=== PATIENT | male | born 1945 | race Caucasian/White ===

== ENCOUNTER 2021-03-25 07:03 | Day surgery (SDC) | payer MEDICARE, SELFPAY ==
[2021-03-19 12:57] VITALS: BMI 28.9
--- NOTE | 2021-03-22 09:16 | HO.ANESPROP2 ---
Documented by User: Ana Peraza 03/22/21 11:48 HPI - Anesthesia Eval Consult details Narrative: 76yo M for Right Cataract Extraction IOL Insertion PCP cleared: >4mets No prev cataract on record PMFSH Past Medical History Medical History Aortic valvular disease Arthritis COVID-19 vaccine administered Diabetes HTN (hypertension) Surgical History Surgical History H/O colonoscopy Hx of aortic valve replacement Hx of left cataract extraction Hx of lumbar discectomy Hx of shoulder surgery Social History Social History Smoking Status: Never smoker Use of substances other than those prescribed or required for medical reasons: No Have you been hit, kicked, punched, or otherwise hurt by someone within the past year? If so, by whom?: No Are you DNR?: No Advance Directives Information Provided: No Recently lost weight without trying: No Eating poorly because of decreased appetite: No Nutrition Risks: No Nutritional Risk Meds Allergies Allergy/AdvReac Type Severity Reaction Status Date / Time No Known Allergies Allergy Verified 03/25/21 07:45 [No Known Allergies*] Home Medications Medication Instructions Recorded Confirmed Last Taken Type amlodipine 10 mg PO DAILY 03/19/21 03/19/21 03/25/21 06:00 History apixaban [Eliquis] 5 mg PO BID 03/19/21 03/19/21 Unknown History doxazosin 4 mg PO BEDTIME 03/19/21 03/19/21 Unknown History hydralazine 100 mg PO BID 03/19/21 03/19/21 03/25/21 06:00 History insulin glargine [Lantus Solostar 30 unit SUBCUT QPM 03/19/21 03/19/21 Unknown History U-100 Insulin] metformin 1,000 mg PO BID 03/19/21 03/19/21 Unknown History metoprolol tartrate 100 mg PO TID 03/19/21 03/19/21 03/25/21 06:00 History spironolactone 25 mg PO DAILY 03/19/21 03/19/21 Unknown History Exam Exam Date and Time: March 22, 2021 0916 Height,Weight and Vital Signs: Height 5 ft 5 in Weight 78.925 kg Assessment and Plan Assessment Anesthesia Assessment: Chart Reviewed Documented by User: Keila Smiley 03/25/21 09:48 PMFSH Past Medical History Medical History Aortic valvular disease Arthritis COVID-19 vaccine administered Diabetes HTN (hypertension) Surgical History Surgical History H/O colonoscopy Hx of aortic valve replacement Hx of left cataract extraction Hx of lumbar discectomy Hx of shoulder surgery Social History Social History Smoking Status: Never smoker Use of substances other than those prescribed or required for medical reasons: No Have you been hit, kicked, punched, or otherwise hurt by someone within the past year? If so, by whom?: No Are you DNR?: No Advance Directives Information Provided: No Recently lost weight without trying: No Eating poorly because of decreased appetite: No Nutrition Risks: No Nutritional Risk Meds Allergies Allergy/AdvReac Type Severity Reaction Status Date / Time No Known Allergies Allergy Verified 03/25/21 07:45 [No Known Allergies*] Home Medications Medication Instructions Recorded Confirmed Last Taken Type amlodipine 10 mg PO DAILY 03/19/21 03/19/21 03/25/21 06:00 History apixaban [Eliquis] 5 mg PO BID 03/19/21 03/19/21 Unknown History doxazosin 4 mg PO BEDTIME 03/19/21 03/19/21 Unknown History hydralazine 100 mg PO BID 03/19/21 03/19/21 03/25/21 06:00 History insulin glargine [Lantus Solostar 30 unit SUBCUT QPM 03/19/21 03/19/21 Unknown History U-100 Insulin] metformin 1,000 mg PO BID 03/19/21 03/19/21 Unknown History metoprolol tartrate 100 mg PO TID 03/19/21 03/19/21 03/25/21 06:00 History spironolactone 25 mg PO DAILY 03/19/21 03/19/21 Unknown History Exam Airway Mallampati Class: III Denture: Upper and Lower
--- NOTE | 2021-03-22 12:32 | MHC.SHP ---
Pre-Procedural Eval Section A The patient is an INPATIENT: No The History & Physical has been completed within 30 days and I have reviewed it.: Yes Section B Chief Complaint: Cataract Right Eye Allergies: Allergies Allergy/AdvReac Type Severity Reaction Status Date / Time No Known Allergies Allergy Verified 03/19/21 12:59 [No Known Allergies*] Plan Diagnosis/Plan: Unchanged I have reviewed the history and physical and performed a pertinent physical examination on my patient. No changes have occurred unless specified.
[2021-03-25 07:47] VITALS: BP 140/69; PULSE 77; RESP 16; TEMP 36.4; O2SAT 98
[2021-03-25 07:59] LABS: Glucose, Whole Blood 151 mg/dL (60-115)
[2021-03-25] MEDS: Tetracaine HCl/PF 0.5% Oph Sol 4 ML DROPS 1 DROP EYE-RIGHT (08:03)
[2021-03-25] MEDS: Tropicamide 1 % Ophth Sol 3 ML BTL 1 DROP EYE-RIGHT ×3 (08:04→08:12)
[2021-03-25] MEDS: Phenylephrine HCL 2.5% Oph SoL 2 ML BOTTLE 1 DROP EYE-RIGHT ×3 (08:07→08:15)
[2021-03-25] MEDS: Lactated Ringers 500 ML 50 ML IV (08:16)
--- NOTE | 2021-03-25 08:53 | HO.PNOPHT ---
Ophthalmology Procedure Procedure Date of Service: 03/25/21 Ophthalmology Viscoelastic: Lowell Méndezt Dual Pack Pro Ophthalmology Lenses: TECROGELIO [id number] (24) Procedure Notes: PREOPERATIVE DIAGNOSIS: Decreased visual acuity right eye secondary to cataract POSTOPERATIVE DIAGNOSIS: Same PROCEDURE: Right cataract extraction with intraocular lens insertion SURGEON: Giovanni Miranda M.D. ANESTHESIA: Topical/MAC ESTIMATED BLOOD LOSS: None COMPLICATIONS: None After obtaining informed consent, the patient was brought to the operating room suite and placed in the supine position. After adequate sedation per anesthesia, topical drops of Tetracaine were given to the right eye. The eye was then prepped and draped in the usual sterile fashion. The operating room microscope was then positioned over the operative eye and a lid speculum placed. A paracentesis was created. Viscoelastic was then instilled into the anterior chamber. A three plane incision was then created temporally, utilizing a 2.85 mm keratome. Capsulotomy forceps were then utilized to create a circular tear capsulotomy. Hydrodissection and hydrodelineation were carried out until adequate mobilization of the nucleus occurred. Phacoemulsification was then utilized to remove the dense central nucleus followed by removal of the cortical material utilizing the automated aspiration irrigation unit. Viscoelastic was instilled into the posterior capsular bag followed by placement of a posterior chamber intraocular lens without difficulty. The residual Viscoelastic was then removed utilizing the automated IA machine. The wound was checked and found to be watertight. The patient tolerated the procedure well and the lid speculum was removed. Intracameral injection of Vigamox 0.1 mL followed by a subtenon injection of Kenalog-40 0.2 mL were administered. The patient will be seen in the a.m.
[2021-03-25 09:15] VITALS: BP 137/59; PULSE 60; RESP 20; TEMP 36.4; O2SAT 100
== END 2021-03-25 09:28 | disposition home or self-care (01) ==
PROVIDERS: PCP Internal Medicine; Visit Provider Ophthalmology
PROC: (CPT 66985; principal; 2021-03-25 09:10)
DX: H25.11 Age-related nuclear cataract, right eye (principal); I10 Essential (primary) hypertension; E11.9 Type 2 diabetes mellitus without complications; Z79.4 Long term (current) use of insulin; Z79.899 Other long term (current) drug therapy; Z95.2 Presence of prosthetic heart valve; Z79.01 Long term (current) use of anticoagulants; Z96.1 Presence of intraocular lens
CPT/HCPCS: 66984; 82947; J2250; J3300; V2632

== ENCOUNTER → 2022-06-26 08:17 | Outpatient (BNVA) | payer MEDICARE, SELFPAY | PROVIDERS: PCP Internal Medicine; Visit Provider Nurse Practitioner Family | DX: M54.9 Dorsalgia, unspecified (principal); R20.0 Anesthesia of skin; Z95.2 Presence of prosthetic heart valve | CPT/HCPCS: 99202 ==

== ENCOUNTER 2022-07-18 15:01 | Outpatient (REF) | payer MEDICARE, SELFPAY ==
--- NOTE | ~2022-07-18 | MR_ITS ---
EXAMINATION: MR LUMBAR SPINE WITHOUT CONTRAST CLINICAL INFORMATION: Back pain. Right leg numbness. COMPARISON: None. TECHNIQUE: Multiplanar, multisequence imaging was obtained. FINDINGS: VERTEBRAL BODIES AND PARASPINAL STRUCTURES: There is moderate endplate edema at the L4-L5 level with moderate disc space narrowing, worse on the right side. Postoperative changes noted at this level and at the L5-S1 level with wide laminectomy defects. The marrow signal is otherwise within normal limits. No compression fractures are seen. There is a slight retrosubluxation at the L5-S1 level. Mild leftward lumbar spinal curvature evident. No fluid collections visible. There are mild degenerative changes of the sacroiliac joints. CONUS MEDULLARIS AND CAUDA EQUINE: The distal cord, conus tip, and cauda equina nerve roots appear normal. SPINAL LEVELS: L1-L2: No disc pathology. Very mild facet arthropathy. No central canal stenosis or foraminal narrowing. L2-L3: Anterior endplate spurring and mild facet arthropathy. No disc abnormality. No central canal stenosis or foraminal narrowing. L3-L4: No disc abnormality. No central canal stenosis. Endplate spurring with mild bilateral foraminal encroachment. Mild facet arthropathy as well. L4-L5: Moderate endplate edematous changes and disc space narrowing with a generalized disc bulge and moderate facet arthropathy. Decompressive laminectomy. Unroofed disc bulge with a questionable chronic right-sided L4 pars defect. Moderate left foraminal narrowing. Bulging/protruding disc posterolaterally on the right side in combination with osseous spurring results in severe right foraminal encroachment and compression of the right L4 nerve root. L5-S1: Slight retrosubluxation and shallow, broad-based posterior disc bulge with a decompressive laminectomy. Osseous spurring and bulging disc result in severe bilateral foraminal encroachment with mild distortion of the exiting left L5 nerve root. MR/MR lumbar spine wo con IMPRESSION: Chronic postoperative changes at the L4-L5 level with moderate endplate edema and moderate degenerative disc disease with hypertrophic facet arthropathy. Unroofed bulging/protruding disc and osseous spurring result in severe right foraminal encroachment and compression of the right L4 nerve root. Chronic postoperative changes at L5-S1 with a decompressive laminectomy. Significant bilateral foraminal narrowing with mild distortion of the exiting left L5 nerve root.
== END 2022-07-18 15:02 | disposition home or self-care (01) ==
LOC: HO.MRI 15:01
PROVIDERS: Visit Provider Nurse Practitioner Family
DX: M54.9 Dorsalgia, unspecified (principal); R20.0 Anesthesia of skin
CPT/HCPCS: 72148

== ENCOUNTER → 2022-08-07 08:33 | Outpatient (BNVA) | payer MEDICARE, SELFPAY | PROVIDERS: PCP Internal Medicine; Visit Provider Nurse Practitioner Family | DX: R20.0 Anesthesia of skin (principal); G54.4 Lumbosacral root disorders, not elsewhere classified; M54.9 Dorsalgia, unspecified | CPT/HCPCS: 99212 ==

== ENCOUNTER 2022-10-30 10:43 | Outpatient (REF) | payer OTHER, SELFPAY ==
--- NOTE | 2022-10-30 10:00 | EMG_ITS ---
Right tibial and peroneal motor studies were performed. Right superficial peroneal and sural sensory studies were performed. Tibial H-reflex was obtained, and needle examination was done. IMPRESSION: 1. Multilevel chronic right mid and lower lumbar radiculopathy. 2. 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 MD BRYNN Sewell/ЕЛЕНА / [id number]
== END 2022-10-30 10:44 | disposition home or self-care (01) ==
LOC: HO.NEURO 10:43
PROVIDERS: PCP Internal Medicine; Visit Provider Nurse Practitioner Family
DX: R20.0 Anesthesia of skin (principal); M54.9 Dorsalgia, unspecified
CPT/HCPCS: 95886; 95909

== ENCOUNTER → 2022-12-05 10:17 | Outpatient (BNVA) | payer MEDICARE, SELFPAY | PROVIDERS: PCP Internal Medicine; Visit Provider Nurse Practitioner Family | DX: G54.9 Nerve root and plexus disorder, unspecified (principal); R20.0 Anesthesia of skin; G62.9 Polyneuropathy, unspecified | CPT/HCPCS: 99212 ==

== ENCOUNTER → 2023-04-01 10:53 | Outpatient (BNVA) | payer MEDICARE, SELFPAY | PROVIDERS: PCP Internal Medicine; Visit Provider Nurse Practitioner Family | DX: G62.9 Polyneuropathy, unspecified (principal); R20.0 Anesthesia of skin; G54.9 Nerve root and plexus disorder, unspecified; I35.8 Other nonrheumatic aortic valve disorders; I10 Essential (primary) hypertension; E11.9 Type 2 diabetes mellitus without complications; Z95.2 Presence of prosthetic heart valve | CPT/HCPCS: 99212 ==

== ENCOUNTER 2024-08-16 10:41 | Outpatient (AMB) | payer MEDICARE, SELFPAY ==
--- NOTE | 2024-08-16 11:00 | A.OFFVIS_ITS ---
Vital Signs 08/16/24 11:10 Height 5 ft 5 in Weight 162 lb 4 oz BMI 27.0 BP 138/72 Blood Pressure Location Rt brachial Position Sitting Respiration 16 Pulse 73 Pulse Source Pulse Oximeter Pulse Oximetry (%) 99 Oxygen Delivery Method Room Air Intake Visit Reasons: 1yr Follow up Intake Note: Pt presents to the office for a follow up after 16 months for anoxal polyneuropathy. Duty Manager Required: No Allergies No Known Allergies [No Known Allergies*] Allergy (Verified 08/16/24 11:10) Medication List - Last Reconciled 08/16/24 by Leti Taylor MD alpha lipoic acid 400 mg (2 x 200 mg) PO DAILY 30 days apixaban (Eliquis) 5 mg PO BID blood sugar diagnostic (FreeStyle Lite Strips) As directed once a day doxazosin 4 mg PO BEDTIME hydralazine 100 mg PO BID insulin glargine (Lantus U-100 Insulin) 16 units subcut BEDTIME insulin syringe-needle U-100 (BD Insulin Syringe Ultra-Fine) As directed once a day at bedtime lancets (FreeStyle Lancets) As directed once a day metformin 1,000 mg PO BID metoprolol tartrate 100 mg PO BID nifedipine ER 90 mg PO DAILY spironolactone 50 mg PO DAILY valsartan 160 mg PO BID vitamin B complex-folic acid 0.4 mg 1 tab PO DAILY 90 days HPI Comments Details: 79 y/o male patient presents for follow up of radiculopathy and neuropathy ( likely diabetic) Patient had knee surgery in February 2024 and since then he feels his right leg is weaker. He still has right knee pain and surgery did not help. He reports numbness in right leg radiating down from knee. Reviewed EMG from 2021- showed multilevel Right radiculopathy ( mid and lower level)and axonal polyneuropathy. ? His back pain is manageable. he had back surgery in 2006 and has been stable since then.No trouble with urinary urgency or gait. ? [facility] Medical History (Updated 08/16/24 @ 11:29 by Leti Taylor MD) Lumbar radiculopathy, chronic COVID-19 vaccine administered Arthritis Diabetes Aortic valvular disease HTN (hypertension) Surgical History Hx of left cataract extraction H/O colonoscopy Hx of shoulder surgery Hx of lumbar discectomy Hx of aortic valve replacement Social History Household Members: Spouse Alcohol intake: former Patient Tobacco Use Status: Former Tobacco user Physical Exam Vital Signs: Last Vital Signs Pulse 73 08/16/24 11:10 Resp 16 08/16/24 11:10 BP 138/72 08/16/24 11:10 Pulse Ox 99 08/16/24 11:10 Oxygen Delivery Method Room Air 08/16/24 11:10 BMI result Body Mass Index 27.0 Const General: cooperative and no acute distress Nutritional Appearance: overweight Orientation/consciousness: patient oriented x3 Limitations: no limitations Neck Neck: Yes full ROM and Yes supple Resp Effort & Inspection: normal respiratory effort and able to speak in complete sentences Neuro Other: gait - antalgic , limps on his right knee General: patient oriented x3, moves all extremities, no focal motor deficits and CN's II-XI intact bilaterally Cognition (Neuro): normal cognition Motor exam (neuro): 5/5 motor strength present throughout and Normal motor muscle tone present throughout Deep tendon reflexes (DTR's): Right triceps reflex intensity grade: 2+, Left triceps reflex intensity grade: 2+, Rt Biceps (C5, C6): 2+, Left biceps reflex intensity grade: 2+, Right brachioradialis reflex intensity grade: 2+, Left brachioradialis reflex intensity grade: 2+, Right patellar reflex intensity grade: 2+ and Left patellar reflex intensity grade: 2+ Psych Appearance: grossly normal Mental Status: mental status grossly normal Speech and movement: Normal speech and movement present Assessment & Plan Assessment & Plan (1) Numbness of right lower extremity: Code(s): R20.0 - Anesthesia of skin Category: Medical (2) Axonal polyneuropathy: Comment: diabetic Code(s): G62.9 - Polyneuropathy, unspecified Category: Medical (3) Lumbar radiculopathy, chronic: Code(s): M54.16 - Radiculopathy, lumbar region Category: Medical Plan I will schedule him for a repeat NCS and EMG LE to evaluate right leg numbness Continue to take vitamin B complex and alpha lipoic acid 400 mg daily. F/u with ortho for his Right knee Monitor diabetes Orders: Orders NE nerve conduction velocity Today M54.16 - Radiculopathy, lumbar region, R20.0 - Anesthesia of skin NE electromyogram (EMG) Today M54.16 - Radiculopathy, lumbar region, R20.0 - Anesthesia of skin Referrals Neuro Spine Referral G54.9 - Nerve root and plexus disorder, unspecified Coding Level of Care Code Est Pt Level 4 (79374) Complex EM visit Add On G2211 Diagnoses Numbness of right lower extremity R20.0 Axonal polyneuropathy G62.9 Lumbar radiculopathy, chronic M54.16
[2024-08-16 11:10] VITALS: BP 138/72; PULSE 73; RESP 16; O2SAT 99; BMI 27.0
== END 2024-08-16 11:36 | disposition home or self-care (01) ==
PROVIDERS: Visit Provider Psychiatry & Neurology Neurology
DX: R20.0 Anesthesia of skin (principal); G62.9 Polyneuropathy, unspecified; M54.16 Radiculopathy, lumbar region
CPT/HCPCS: 99214; G2211

== ENCOUNTER → 2024-08-16 10:41 | Outpatient (BNVA) | payer MEDICARE, SELFPAY | PROVIDERS: Visit Provider Psychiatry & Neurology Neurology | DX: G62.9 Polyneuropathy, unspecified (principal); R20.0 Anesthesia of skin; M54.16 Radiculopathy, lumbar region | CPT/HCPCS: 99212 ==

== ENCOUNTER 2024-08-22 09:29 | Outpatient (AMB) | payer MEDICARE, SELFPAY ==
--- NOTE | 2024-08-22 09:45 | HO.SPINEOV ---
Intake Visit Reasons: LBP Intake Note: Mr. Lane is here today c/o Rt. leg pain. MRI done @ [facility]. 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 Code(s): G54.9 - Nerve root and plexus disorder, unspecified Category: Medical Plan Dear Dr Taylor, Thank you for referring Mr Lane to our office today. He is a 79-year-old gentleman who has a history of an L4-5, L5-S1 decompression done by Dr. Grimes about 15 years ago with excellent results, who has been having on and off right-sided leg pain, primarily focused around his knee since the beginning of the year. He has had 2 knee surgeries on his right knee and thought there might be an issue there. He went to [facility] orthopedic office and was evaluated, they told him his knee was fine, maybe there was little meniscus tear so they went in the clean it up last February and it did not help. He had persistent pain after the surgery and was seen and they told him everything was okay. The pain is primarily focused in his right knee but he describes also having pain in the right anterior thigh as well as tingling going down into the anterior tibial region. He has been frustrated because he has been unable to walk any distance and the pain has been quite severe. He was having trouble sleeping at night until you gave him some gabapentin and that seems to have made the night times more tolerable. Still however, he can not get up and walk around and do simple things like grocery shopping or light yd work. He does not have any back pain. He has not done any conservative treatment, all he is doing at this point is the gabapentin and epuh-yls-ndocbjs pain medications. 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 Bilateral cataract surgery. BPH, recent prostate biopsy. Results are pending. History of hypertension, peripheral neuropathy. He does not report any history of heart attacks, strokes, liver disease, major abdominal surgery, renal disease, blood clots, cancer. Social hx: He does not smoke, drink use any recreational drugs Medications: Valsartan, spironolactone, Eliquis, nifedipine, metoprolol, metformin, insulin sliding scale and Lantus in the mornings, gabapentin at bedtime, doxazosin, alpha lipoic acid Allergies: No drug allergies Physical exam: He is awake alert oriented no acute distress, strength in the bilateral lower extremities is normal, normal reflexes. He has a well healed scar in the middle of his back which is 6-8 inches long. Imaging review: There is a lumbar MRI done at [facility] and this shows postsurgical changes at L4-5 and L5-S1 with a wide laminectomy and partial facetectomy. He has a grade 1 spondylolisthesis at L4-5 with severe right-sided foraminal collapse and severe right L4 nerve compression. Impression: 79-year-old male with history of previous L4-5, L5-S1 surgery done about 15 years ago who has had developed a new persistent pain in his right knee as well as his right anterior lateral thigh as well as tingling going down into his anterior tibial region that started earlier this year. It is aggravated with standing walking and gets better when he sits. He has had 2 previous knee surgeries and thought that the symptoms were coming from the knee joint itself. He ultimately underwent an arthroscopy and was told they removed a little bit of meniscus but otherwise his knee looked okay. Subsequent MRI showed as listed above he has severe compression of the foramen secondary to disc degeneration at L4-5 with right L4 foraminal collapse. My suspicion is that he has an unstable segment there. I would need to get some x-rays to confirm this. He is due to undergo an EMG, and I think this will be helpful as well if he can localize it to the L4 nerve. If not we could consider transforaminal epidural on the right L4 nerve just to be sure that this is exactly where it is coming from but it seems as though it fits with his story. I will await the results of the EMG, and I will be review his imaging with Dr. Richardson. Depending on the results of the x-rays will determine exactly what surgery will need to be performed. Thank you for allowing us to care for your patient. The total time spent with this visit with this patient was 45 minutes reviewing history, physical exam, lumbar imaging review, and implementation of treatment plan or further diagnostic testing Fortino Richardson MD,PhD [facility] Orders: Orders XR lumbar spine 4V min Today G54.9 - Nerve root and plexus disorder, unspecified Coding Level of Care Code New Pt Level 4 (32794) Diagnoses Compression of spinal nerve root G54.9
== END 2024-08-22 11:25 | disposition home or self-care (01) ==
PROVIDERS: PCP Internal Medicine; Referring Provider Psychiatry & Neurology Neurology; Visit Provider Physician Assistant
DX: G54.9 Nerve root and plexus disorder, unspecified (principal)
CPT/HCPCS: 99204

== ENCOUNTER 2024-08-22 09:29 | Outpatient (REF) | payer MEDICARE, SELFPAY | END 2024-08-22 09:30 | disposition home or self-care (01) | LOC: HO.HOSX 09:29 | PROVIDERS: PCP Internal Medicine; Visit Provider Physician Assistant | DX: G54.9 Nerve root and plexus disorder, unspecified (principal); M43.16 Spondylolisthesis, lumbar region; M79.604 Pain in right leg | CPT/HCPCS: 99202 ==

== ENCOUNTER 2024-08-23 09:29 | Outpatient (REF) | payer MEDICARE, SELFPAY ==
--- NOTE | ~2024-08-23 | XR_ITS ---
EXAMINATION: XR LUMBAR SPINE 5 VIEWS CLINICAL INFORMATION: Nerve root and plexus disorder, unspecified G54.9. COMPARISON: MR Lumbar spine without contrast 07/18/2022 TECHNIQUE: 5 views of lumbar spine. FINDINGS: There is 8 mm of retrolisthesis at L4-L5. Vertebral body heights are maintained. There is multilevel loss of intervertebral disc space with endplate degenerative changes, particularly at L4-L5. There is spondylolisthesis at L4-L5. No instability on flexion and extension. XR/XR lumbar spine 4V min IMPRESSION: Retrolisthesis at L4-L5. Electronically signed by: Alona Smith MD 10/26/2024 04:30 PM JUAN
== END 2024-08-23 09:30 | disposition home or self-care (01) ==
LOC: HO.XRAY 09:29
PROVIDERS: PCP Internal Medicine; Visit Provider Physician Assistant
DX: G54.9 Nerve root and plexus disorder, unspecified (principal)
CPT/HCPCS: 72110

== ENCOUNTER 2024-09-09 13:01 | Outpatient (REF) | payer MEDICARE, SELFPAY ==
--- NOTE | 2024-09-09 13:05 | EMG_ITS ---
Chief complaint: Right knee pain with numbness from right knee to right foot. Says this started after a right knee surgery in February. Diabetic. Past lumbar surgery. Recent follow-up with neuro spine noted. Last EMG done by Dr. Hamm in 2021 reviewed. Reason for referral: Evaluate for lumbar radiculopathy versus peripheral neuropathy Referred by: Dr. Taylor Procedure done: Bilateral lower extremity NCS/right lower extremity EMG Precautions and/or limitations: Eliquis Previous lumbar surgery The limb temperature was monitored continuously and remained between 32-36 degrees C during the performance of the NCS. Nerve Conduction Studies Anti Sensory Summary Table ?Stim Site NR Onset (ms) Norm Onset (ms) Peak (ms) Norm Peak (ms) O-P Amp (?V) Norm O-P Amp Site1 Site2 Delta-0 (ms) Dist (cm) Tom (m/s) Norm Tom (m/s) Right Sup Peron Anti Sensory (Ankle) Lateral Leg NR <4.4 >5.0 Lateral Leg Ankle 14.0 Left Sural Anti Sensory (Lat Mall) Calf ? 2.5 3.6 <4.0 13.5 >5.0 Calf Lat Mall 2.5 14.0 56 Right Sural Anti Sensory (Lat Mall) Calf ? 2.4 3.6 <4.0 20.5 >5.0 Calf Lat Mall 2.4 14.0 58 Motor Summary Table ?Stim Site NR Onset (ms) Norm Onset (ms) O-P Amp (mV) Norm O-P Amp iAmp (mV) Amp (1st) (%) Site1 Site2 Delta-0 (ms) Dist (cm) Tom (m/s) Norm Tom (m/s) Right Peroneal Motor (Ext Dig Brev) Ankle ? 5.0 <4.0 2.6 >2.5 2.8 100.0 Ankle Ext Dig Brev 5.0 0.0 B Fib ? 12.9 2.1 2.5 80.8 B Fib Ankle 7.9 32.0 41 >40 Poplt ? 14.0 1.9 2.2 73.1 Poplt B Fib 1.1 5.0 45 >40 Left Tibial Motor (Abd Bernal Brev) Ankle ? 3.7 <5 8.3 >2.5 11.7 100.0 Ankle Abd Bernal Brev 3.7 0.0 Knee ? 12.7 6.1 7.9 73.5 Knee Ankle 9.0 40.0 44 >40 Right Tibial Motor (Abd Bernal Brev) Ankle ? 3.5 <5 9.5 >2.5 13.6 100.0 Ankle Abd Bernal Brev 3.5 0.0 Knee ? 12.4 6.7 9.1 70.5 Knee Ankle 8.9 39.0 44 >40 EMG ?Side Muscle Nerve Root Ins Act Fibs Psw Amp Dur Poly Recrt Int Pat Comment Right AbdHallucis MedPlantar S1-2 Nml Nml Nml Nml Nml 0 Nml Complete Right AntTibialis Dp Br Peron L4-5 Nml Nml Nml Nml Nml 0 Nml Complete Right MedGastroc Tibial S1-2 Nml Nml Nml Nml Nml 0 Nml Complete Right VastusMed Femoral L2-4 Nml Nml Nml Nml Nml 0 Nml Complete Right Peroneus Long Sup Br Peron L5-S1 Nml Nml Nml Nml Nml 0 Nml Complete FINDINGS: Right peroneal nerve showed prolonged distal latency, normal amplitude and normal conduction velocity. Right superficial peroneal sensory nerve showed no response. All other nerves tested were within normal. Concentric needle EMG was performed in selected muscles of the right lower extremity. Study did not reveal signs of electric abnormalities as shown in the table above. IMPRESSION: 1. This is an abnormal study. 2. 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 3. There is no electrodiagnostic evidence for tibial neuropathy. lumbosacral plexopathy, lumbar radiculopathy, or peripheral neuropathy. CLINICAL COMMENT: I think overall there is improvement seen on this test today compared to last done in 2021. That test in 2021 did show peroneal nerve slowing of conduction velocity across fibular neck, which suggest that patient already had common peroneal neuropathy even at that time. No signs of ongoing lumbar radiculopathy seen today. No signs of diffuse polyneuropathy or peripheral neuropathy. Thank you for your kind referral. Jasmina Pringle MD, CAMRON Board Certified, [place] Board of Physical Medicine and Rehabilitation (ABPMR) Board Certified, [place] Board of Electrodiagnostic Medicine (ABEM) [place] [id number] [facility]
== END 2024-09-09 13:02 | disposition home or self-care (01) ==
LOC: HO.NEURO 13:01
PROVIDERS: PCP Internal Medicine; Visit Provider Psychiatry & Neurology Neurology
DX: M54.16 Radiculopathy, lumbar region (principal); R20.0 Anesthesia of skin
CPT/HCPCS: 95886; 95909

== ENCOUNTER → 2024-09-09 13:05 | Outpatient (BNV) | payer MEDICARE, SELFPAY | PROVIDERS: PCP Internal Medicine; Visit Provider Physical Medicine & Rehabilitation | DX: G62.89 Other specified polyneuropathies (principal) | CPT/HCPCS: 95886; 95909 ==

== ENCOUNTER 2024-09-16 09:44 | Outpatient (AMB) | payer MEDICARE, SELFPAY ==
--- NOTE | 2024-09-16 10:03 | A.SPINEOV_ITS ---
Intake Visit Reasons: Xray & EMG follow up Intake Note: Mr. Lane is here to F/u on xray and EMG results. 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 Code(s): G54.9 - Nerve root and plexus disorder, unspecified Category: Medical Plan Mr Lane returns to see me in follow up. His EMG suggested a peroneal neuropathy which is a little confusing because his primary pain is going down his anterior thigh into his knee. He has no weakness of dorsiflexion and no loss of sensation in his distal lower extremity. Nonetheless, he still has severe foraminal stenosis at the right L4 foramen with x-ray showing some anterior translation of his L4-[address] Richardson had previously reviewed his imaging and thought he would be a good candidate for an oblique lumbar interbody fusion to treat the back pain and right leg pain. Right now, he is taking care of his and isn't sure he will be able to take the time down that will be needed to recover from the surgery. He is going to think about it. We did review the procedure at length, risks, benefits etc.. I told him I would like to get an updated MRI because his old 1 is 2 years ago just to make sure there is not something new in his spine that we might be missing. I will see him back after the MRI and he will be thinking about whether not he wants to proceed with the surgery. Total amount of time spent in this visit was 20 minutes in discussion of s ymptoms, previous lumbar imaging results and subsequent plan of care Fortino Richardson MD,PhD [facility] Orders: Orders MR lumbar spine wo con Today G54.9 - Nerve root and plexus disorder, unspecified Coding Level of Care Code Est Pt Level 3 (78665) Diagnoses Compression of spinal nerve root G54.9
== END 2024-09-16 11:25 | disposition home or self-care (01) ==
PROVIDERS: PCP Internal Medicine; Referring Provider Psychiatry & Neurology Neurology; Visit Provider Physician Assistant
DX: G54.9 Nerve root and plexus disorder, unspecified (principal)
CPT/HCPCS: 99213

== ENCOUNTER → 2024-09-16 09:44 | Outpatient (BNVA) | payer MEDICARE, SELFPAY | PROVIDERS: PCP Internal Medicine; Visit Provider Physician Assistant | DX: G54.9 Nerve root and plexus disorder, unspecified (principal) | CPT/HCPCS: 99212 ==

== ENCOUNTER 2024-11-03 08:46 | Outpatient (REF) | payer MEDICARE, SELFPAY ==
--- OUTSIDE RECORDS SUMMARY | 2024-11-03 09:06 | XMS_ITS | Continuity of Care Document ---
Author Organization [facility], [facility] 2nd floor Address [address] [place] [address] Assessment No assessment recorded. Plan of Treatment Reminders Order Date Submit Date Provider Last Modified By Organization Details Last Modified Time Details Appointments None record ed. Lab None record ed. Referral None record ed. Procedures None record ed. Surgeries None record ed. Imaging None record ed. Medication Orders None record ed. Patient TargetsNo targets recorded. Patient InstructionsNo instructions recorded. Reason for Referral None Reported. Problems Name Problem SNOMED Code Status Onset Date Resolution Date Notes Provider Name and Address Organization Details Recorded Time No complaint s [id number] Active Status: 'I'; Not Available [facility] 4 09:11:58 Pain of left knee joint 350770739048 107 Active 2023 Adelaida Howard PA-C [address], [place], [address] , [facility] 4 12:38:45 Pain of right knee joint 672631088264 100 Active 2023 Adelaida Howard PA-C [address], [place], [address] , [facility] 4 12:38:54 Diabetes mellitus 00449547 Active 2023 TEE ROBERTS [facility] 4 12:21:55 Essential hypertens ion 73979885 Active 2023 SANDRA pearson [facility] 4 12:18:26 Coronary arteriosc lerosis 19678111 Active 2023 ZAMZAM pearson [place] - [facility] 4 12:18:47 Problem Notes None recorded. Medical Equipment None Reported. Allergies No known drug allergies Medications Name Sig Start Date Stop Date Status Note LastModified by Organization Details LastModified Time azithromycin 250 mg tablet TAKE 2 TABLETS BY MOUTH ONCE FOR 1 DOSE. ONE HOUR PRIOR TO DENTAL CLEANING active Not Available Not Available No t Available ibuprofen 800 mg tablet PLEASE SEE ATTACHED FOR DETAILED DIRECTIONS active Not Available Not Available N ot Available nifedipine ER 90 mg tablet,exten ded release TOME GEOVANY TABLETA TODOS LOS D active Not Available Not Available No t Available meloxicam 15 mg tablet TAKE 1 TABLET EVERY DAY BY ORAL ROUTE AFTER MEAL(S). 2023 active Not Available Not Available Not Avai lable FreeStyle Lancets 28 gauge active Not Available Not Available Not Available metoprolol succinate ER 100 mg tablet,exten ded release 24 hr TOME 1 TABLETA POR V A ORAL TODOS LOS D active Not Available Not Available No t Available Lantus U-100 Insulin 100 unit/mL subcutaneous solution INJECT 22 UNITS INTO THE SKIN IN THE MORNING. active Not Available Not Available No t Available ciprofloxaci n 500 mg tablet TAKE 1 TAB 1 HR BEFORE PROCEDURE & 1 TAB 10 HRS AFTER active Not Available Not Available No t Available acetaminophe n 500 mg tablet PLEASE SEE ATTACHED FOR DETAILED DIRECTIONS active Not Available Not Available N ot Available tamsulosin 0.4 mg capsule Take 1 capsule every day by oral route. active Not Available Not Available No t Available hydralazine 100 mg tablet TAKE 1.5 TABLETS BY MOUTH 2 TIMES DAILY. active Not Available Not Available No t Available pseudoephedr ine-guaifene sin ER 80-700 mg tablet,exten ded release 1 TAB PO Q 4-6 HRS PRN PAIN 2009 active Statu s: 'Curr ent'; Not Available Not Available Not Available metformin 1,000 mg tablet Take 1 tablet twice a day by oral route. active Not Available Not Available No t Available glucose 4 gram chewable tablet TAKE 4 TABLETS BY MOUTH NEEDED FOR (HYPOGLYCEM IA, CUANDO LA AZUCAR BAJA). active Not Available Not Available No t Available gabapentin 300 mg capsule TOME 1 C PSULA POR V A ORAL TODOS LOS D AL ACOSTARSE active Not Available Not Available No t Available vitamin B complex tablet active Not Available Not Available Not Available insulin syringe U-100 with needle 1 mL 29 gauge x 1/2 active Not Available Not Available Not Available insulin lispro (U-100) 100 unit/mL subcutaneous solution active Not Available Not Available Not Available spironolacto ne 50 mg tablet Take 1 tablet every day by oral route. active Not Available Not Available No t Available oxycodone 5 mg tablet TAKE 1-2 TABLETS EVERY 6 HOURS NEEDED FOR 3 DAYS active Not Available Not Available No t Available valsartan 160 mg tablet Take 1 tablet every day by oral route. active Not Available Not Available No t Available rosuvastatin 10 mg tablet TOME 1 TABLETA POR V A ORAL TODOS LOS D active Not Available Not Available No t Available vitamin B complex-foli c acid 0.4 mg tablet TAKE 1 TAB ORALLY DAILY FOR 90 DAYS active Not Available Not Available No t Available BD SafetyGlide Insulin Syringe 0.3 mL 29 gauge x 1/2 active Not Available Not Available Not Available FreeStyle Lite Meter kit USE TO TEST BLOOD SUGARS TWICE DAILY active Not Available Not Available Not Available FreeStyle Lite Strips USE TO TEST BLOOD SUGAR TWICE DAILY active Not Available Not Available Not Available Lantus Solostar U-100 Insulin 100 unit/mL (3 mL) subcutaneous pen INJECT 30 UNITS INTO THE SKIN EVERY MORNING. active Not Available Not Available No t Available Lantus Solostar U-100 Insulin active Not Available Not Available Not Available Humalog KwikPen (U-100) Insulin 100 unit/mL subcutaneous PLEASE SEE ATTACHED FOR DETAILED DIRECTIONS active Not Available Not Available N ot Available diclofenac 1 % topical gel APPLY 4 G TOPICALLY 2 TIMES DAILY. active Not Available Not Available No t Available oxycodone HCl-oxycodon e-ASA RX GIVEN AT [facility], AT TIME OF SURGERY 2017 active Statu s: 'Curr ent'; Not Available Not Available Not Available Eliquis 5 mg tablet TOME 1 TABLETA POR V A ORAL DOS VECES AL D A active Not Available Not Available No t Available BD Insulin Syringe Ultra-Fine 1 mL 31 gauge x 5/16 USE ONCE DAILY TO ADMINISTER INSULIN active Not Available Not Available No t Available Farxiga 10 mg tablet TOME GEOVANY TABLETA (10MG) POR VIA ORAL A DIARIO active Not Available Not Available No t Available Farxiga 5 mg tablet TOME GEOVANY TABLETA TODOS LOS D active Not Available Not Available No t Available BD Elvia 2nd Gen Pen Needle 32 gauge x 5/32 INJECT INSULIN 4 TIMES A DAY active Not Available Not Available Not Available Glutose-5 40 % oral gel TAKE 15 G BY MOUTH NEEDED FOR (HYPOGLYCEM IA, TOMMIER BAJA active Not Available Not Available No t Available B Complex 1 (with folic acid) active Not Available Not Available Not Available Gvoke HypoPen 2-Pack 1 mg/0.2 mL subcutaneous auto-injecto r INJECT 1 DOSE INTO THE SKIN NEEDED FOR OTHER (LOW BLOOD SUGAR). active Not Available Not Available No t Available Flowflex COVID-19 Antigen Home Test kit active Not Available Not Available Not Available Dexcom G7 Kosher Dietary Service Supervisor USE DIRECTED active Not Available Not Available No t Available Dexcom G7 Sensor device APPLY SENSOR TOPICALLY AND CHANGE EVERY 10 DAYS active Not Available Not Available No t Available Vitals Date Recorded Body height Body mass index (BMI) Body weight Provider Name and Address Organization Details Last Updated DateTime 08/24/2024 165.1 cm 29.3 kg/m2 64862.26 g IVAN MCPHERSON [facility] 08/24/2024 10:36:17 Social History None recorded. Functional Status None recorded. Mental Status None recorded. Family History Nothing Reported. Medical History Condition Response Allergies/Hayfever N Coronary Artery Disease N Breathing or lung disorders N Anxiety/Depression N Emphysema N Nerve Disorders N Thyroid Problems N COPD N Pacemaker N Kidney/Bladder Problems N Anemia N Vascular Disease N Heart Trouble Y Heart Attack (IA) N Gastrointestinal Disease N Cholesterol N Diabetes Y Autoimmune disease N Inflammatory Joint disease N Bleeding Disorder N Orthotics N Seizures/Epilepsy N Arthritis N Blood Clot N AIDS/HIV N Congestive Heart Failure (CHF) N Acid Reflux (GERD) N Cancer N Stroke N Asthma N Circulation Problems N Peripheral Vascular Disease N Sleep Apnea N Hepatitis N Heart Disease N Rheumatoid Arthritis N Pulmonary Embolism N Arrhythmia N Headaches N Fibromyalgia N Hypertension Y Osteoporosis N Past Encounters Encounter ID Performer Location Encounter Start Date Encounter Closed Date Diagnosis/Indication Diagnosis SNOMED-CT Code Diagnosis ICD10 Code [id number] MD Chidi Rosen [address] [place] [address] 08/24/2024 09:42:00 09/20/2024 08:31:21 Pain of right knee joint 9338080646 20139 M25.561 Health Concerns Section Related Observation LastModified by Organization Detai ls LastModified Time None Recorded Concern Status LastModified by Organization Details LastModified Time None Recorded Payers Encounter Date Sequence Insurance Name Policy Number Policy Ramos Covered Member ID Ramos Member ID Guarantor Name 08/24/2024 1 [facility] - DOS ON OR AFTER 2023 - ONE CARE (MEDICARE REPLACEMENT/ADV ANTAGE - HMO) Cecilio Lane [id number] Cecilio Lane Notes Date Note Type Note Provider Name and Address Organization Details Recorded Time 08/24/2024 text/html HPI: Patient is in for recheck of {{right* left}} knee pain. Patient is approximately 6 months status post knee arthroscopy, found to have a medial meniscus tear with grade 4 changes trochlea. States continues have some discomfort about the medial compartment of the {{medial* lateral}} compartment of the knee. Sharp shooting discomfort is now gone but will get pain with increased ambulation and physical activity. No new injury. Past family, medical, social history and review of systems has been reviewed, updated and is located in the patient? s chart. Examination:The patient is well appearing and in no apparent distress. Alert and oriented x3. Gait is symmetric. Vital signs per nurse's intake.Examination of the {{right* left}} knee reveals well-healing surgical incision, no effusion erythema or warmth. Range of motion from 0-125 of knee flexion. No instability to varus or valgus stress tests at 0 or 30 degrees. {{medial* latearal}} joint line tenderness. -Patella tenderness. - lachmans,- Mc[place]rays. Calf soft and nontender.5/5 strength of knee flexion extension. Moderate right trochanteric bursitis Impression: 6 months status post {{right* left}} knee arthroscopy Plan: Nature of the diagnosis discussed with the patient today. At this time I do feel vast majority of discomfort is coming from underlying degenerative changes.. Recommended trialing cortisone injection today. Unfortunately corticosteroid injections increases glucose management making them not available to him. Prior limited success to a 3 shot Visco supplementation series lead to his original arthroscopic surgery. Will attempt to get gel one approved. If approval bring him back for injection therapy. If not approved his only option would be total knee arthroplasty techniques. Johnathon Birmingham MD [address] [facility], [place], [address], [facility] 08/24/2024 10:51:38
--- OUTSIDE RECORDS SUMMARY | 2024-11-03 09:06 | XMS_ITS | Continuity of Care Document ---
Author Organization [place] - [facility], [place] [address] Floor Address [address] [place] [address] Assessment Encounter Date Assessment Date Assessment LastModified by Organization Details LastModified Time 10/11/2024 10/11/2024 Patient seen und er general supervision of Dr. Stauffer who was available but who did not see the patient. HPI: 79-year-old male seen today for follow-up regarding right knee arthritis. Patient has received viscous supplementation in the past without any significant relief. 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 Patient continues with pain about the knee. Reports she has been following with a doctor elsewhere who thinks some of his pain may be referred from his spine is undergoing evaluation in this regard. Patient denies any recent fall or trauma. Examination: 79-year-old male no acute distress. On examination right knee no effusion or erythema or warmth. Diffuse tenderness about the medial joint line as well as the medial and lateral patellar facet noted, no gross instability. Range of motion to-115??. Calf is soft. Impression: Right knee arthritis Plan: Treatment options are reviewed. At this time injectables have not been providing relief for his current pain. I discussed role of total knee arthroplasty although patient's most recent x-rays do not demonstrate a sufficient amount of arthritis to proceed with such. Patient has declined new x-rays today. I suggested that he finishes workup regarding his back and follow up with our office should he have continued difficulty about the knee. [email or web address] speech recognition choral teacher software was used to create portions of this document. An attempt at proofreading has been made to minimize errors. Please call for corrections. [email or web address] Not available 10/11/2024 13:55:48 Plan of Treatment Reminders Order Date Submit [...] Organization Details Recorded Time No complaint s [id number] Active Status: 'I'; Not Available [facility] 4 09:11:58 Pain of left knee joint 635170865698 107 Active 2023 Adelaida Howard PA-C [address], [place], [address] , [facility] 4 12:38:45 Pain of right knee joint 331559789039 100 Active 2023 Adelaida Howard PA-C [address], [place], [address] , [facility] 4 12:38:54 Diabetes mellitus 72804325 Active 2023 LANTEE FERNANDEZ [facility] 4 12:21:55 Essential hypertens ion 43218048 Active 2023 [facility] 4 12:18:26 Coronary arteriosc lerosis 28557884 Active 2023 ELIQUIS SANDRA BARNEY [facility] 4 12:18:47 Problem Notes None recorded. Medical [...] active Not Available Not Available Not Avai rebel FreeStyle Lancets 28 gauge active Not Available [...] Available oxycodone HCl-oxycodon e-ASA RX GIVEN AT [facility], AT TIME OF SURGERY 2017 active Statu [...] G BY MOUTH NEEDED FOR (HYPOGLYCEM [place], AZUCAR BAJA active Not Available Not Available No [...] Available Not Available Not Available Dexcom G7 Regional Sales Associate USE DIRECTED active Not Available Not Available No t Available Dexcom G7 Sensor device APPLY SENSOR TOPICALLY AND CHANGE EVERY 10 DAYS active Not Available Not Available No t Available Vitals Date Recorded Body height Body mass index (BMI) Body weight Provider Name and Address Organization Details Last Updated DateTime 10/11/2024 165.1 cm 29.3 kg/m2 27834.26 g SUZIE MCMAHON [place] - [place] [facility] 10/11/2024 13:12:15 Social History None recorded. Functional Status None recorded. Mental Status None recorded. Family History Nothing Reported. Medical History Condition Response Allergies/Hayfever N Coronary Artery Disease N Breathing or lung disorders N Anxiety/Depression N Emphysema N Nerve Disorders N Thyroid Problems N COPD N Pacemaker N Kidney/Bladder Problems N Anemia N Vascular Disease N Heart Trouble Y Heart Attack ([place]) N Gastrointestinal Disease N Cholesterol N Diabetes [...] Diagnosis/Indication Diagnosis SNOMED-CT Code Diagnosis ICD10 Code [id number] JOHAN Piedra [address] [place] [address] 10/11/2024 12:58:02 10/27/2024 16:00:49 Osteoarthritis of right knee joint 8954083054 25711 M17.11 Health Concerns Section Related Observation LastModified by Organization Detai ls LastModified Time None Recorded Concern Status LastModified by Organization Details LastModified Time None Recorded Payers Encounter Date Sequence Insurance Name Policy Number Policy Ramos Covered Member ID Ramos Member ID Guarantor Name 10/11/2024 1 [facility] - DOS ON OR AFTER 2023 - ONE CARE (MEDICARE REPLACEMENT/ADV ANTAGE - HMO) Cecilio [address] [id number] [address]
== END 2024-11-03 08:47 | disposition home or self-care (01) ==
LOC: HO.MRI 08:46
PROVIDERS: PCP Internal Medicine; Visit Provider Physician Assistant
DX: G54.9 Nerve root and plexus disorder, unspecified (principal)
CPT/HCPCS: 72148

== ENCOUNTER → 2024-11-11 11:03 | Outpatient (BNVA) | payer MEDICARE, SELFPAY | PROVIDERS: PCP Internal Medicine; Visit Provider Physician Assistant ==

== ENCOUNTER 2024-11-15 08:24 | Outpatient (AMB) | payer MEDICARE, SELFPAY ==
--- OUTSIDE RECORDS SUMMARY | 2024-11-15 08:26 | XMS_ITS | Data Portability ---
Author Organization [place] - [facility], [facility] Address [address] [place] [address] Assessment Encounter Date Assessment Date Assessment LastModified [...] he have continued difficulty about the knee. [employer] speech recognition pipelines laborer software was used to create portions of this document. An attempt at proofreading has been made to minimize errors. Please call for corrections. [email or web address] Not available 10/11/2024 13:55:48 Plan of Treatment Reminders Order Date Submit Date Provider Last Modified By Organization Details Last Modified Time Details Appointments None recorded. Lab None recorded. Referral None recorded. Procedures None recorded. Surgeries None recorded. Imaging None recorded. Medication Orders meloxicam 15 mg tablet 2023 Favio quentin valentino [id number], [address] [place], [address], 4 14:58:27 Patient TargetsNo targets recorded. Patient InstructionsNo instructions recorded. Reason for Referral None Reported. Results Created Date Observation Date Name Description Value Unit Range Abnormal Flag Note LastModifiedBy Organization Detail LastModifiedTime 07/16/20 24 11/29/2021 imagi ng/di agnos tic resul t No observ ation record ed. [email or web address] Not Available 06/18 06:33:45 07/16/20 24 12/02/2023 imagi ng/di agnos tic resul t No observ ation record ed. [email or web address] Not Available 06/18 06:34:00 Result Notes None recorded. Problems Name Problem SNOMED Code Status Onset Date Resolution Date Notes Provider Name and Address Organization Details Recorded Time No complaint s 033800074 Active Status: 'I'; Not Available [facility] 4 09:11:58 Pain of left knee joint 667386074769 107 Active 2023 Adelaida Howard PA-C [address], [place], [address] , [facility] 4 12:38:45 Pain of right knee joint 322159586552 100 Active 2023 Adelaida Howard PA-C [address], [place], [address] , [facility] 4 12:38:54 Diabetes mellitus 89096182 Active 2023 TEE ROBERTS [facility] 4 12:21:55 Essential hypertens ion 27334086 Active 2023 SANDRA pearson [facility] 4 12:18:26 Coronary arteriosc lerosis 71202642 Active 2023 ZAMZAM pearson [place] [facility] 12:18:47 Problem Notes None recorded. Procedures Surgical History None recorded. Imaging Results Imaging Date Name Status LastModified by Organiz ation Details LastModified Time 11/29/2021 imaging/diag nostic result completed Information not available 07/16/2024 06:33:45 12/02/2023 imaging/diag nostic result completed Information not available 07/16/2024 06:34:00 Procedure Notes None recorded. Medical Equipment None Reported. [...] Available oxycodone HCl-oxycodon e-ASA RX GIVEN AT [facility], AT TIME OF SURGERY 2017 active Statu [...] 2nd Gen Pen Needle 32 gauge x INJECT INSULIN 4 TIMES A DAY active [...] Available Not Available Not Available Dexcom G7 Volcanology Teacher USE DIRECTED active Not Available Not Available No t Available Dexcom G7 Sensor device APPLY SENSOR TOPICALLY AND CHANGE EVERY 10 DAYS active Not Available Not Available No t Available Vitals Date Recorded Body height Body mass index (BMI) Body weight Provider Name and Address Organization Details Last Updated DateTime 03/23/2024 165.1 cm 29.3 kg/m2 06344.26 g Jae Gomez PA-C [address] [facility] [address], [place], [address], [facility] 03/23/2024 13:57:09 Date Recorded Body height Body mass index (BMI) Body weight Provider Name and Address Organization Details Last Updated DateTime 08/24/2024 165.1 cm 29.3 kg/m2 19026.26 g IVAN MCPHERSON [facility] 08/24/2024 10:36:17 Date Recorded Body height Body mass index (BMI) Body weight Provider Name and Address Organization Details Last Updated DateTime 10/11/2024 165.1 cm 29.3 kg/m2 65123.26 g SUZIE MCMAHON [place] [facility] 10/11/2024 13:12:15 Social History None recorded. Functional Status None recorded. Mental Status None recorded. Family History Nothing Reported. Medical History Condition Response Coronary Artery Disease N Anxiety/Depression N Emphysema N COPD N Pacemaker N Vascular Disease N Heart Trouble Y Gastrointestinal Disease N Autoimmune disease N Inflammatory Joint disease N Orthotics N Arthritis N Blood Clot N Acid Reflux (GERD) N Cancer N Stroke N Circulation Problems N Rheumatoid Arthritis N Arrhythmia N Headaches N Fibromyalgia N Allergies/Hayfever N Breathing or lung disorders N Nerve Disorders N Thyroid Problems N Kidney/Bladder Problems N Anemia N Heart Attack ([place]) N Cholesterol N Diabetes Y Bleeding Disorder N Seizures/Epilepsy N AIDS/HIV N Congestive Heart Failure (CHF) N Asthma N Peripheral Vascular Disease N Sleep Apnea N Hepatitis N Heart Disease N Pulmonary Embolism N Hypertension Y Osteoporosis N Past Encounters Encounter ID Performer Location Encounter Start Date Encounter Closed Date Diagnosis/Indication Diagnosis SNOMED-CT Code Diagnosis ICD10 Code [id number] JOHAN Berry 2[address] [place] [address] 03/23/2024 13:22:45 04/15/2024 12:56:02 Postoperative care 294173881 Z48.89 Tear of me dial meniscus of knee 574456162 S83.241D [id number] MD Merry Rosen [address]nd [facility] [address] [place] [address] 08/24/2024 09:42:00 09/20/2024 08:31:21 Pain of right knee joint 0936598937 97768 M25.335 [id number] JOHAN Piedra [address] [place] [address] 10/11/2024 12:58:02 10/27/2024 16:00:49 Osteoarthritis of right knee joint 5131413383 91155 M17.11 Health Concerns Section Related Observation LastModified by Organization Detai ls LastModified Time None Recorded Concern Status LastModified by Organization Details LastModified Time None Recorded Advance Directives Directive None Recorded Payers Encounter Date Sequence Insurance Name Policy Number Policy Ramos Covered Member ID Ramos Member ID Guarantor Name 08/24/2024 1 [facility] - DOS ON OR AFTER 2023 - ONE CARE (MEDICARE REPLACEMENT/ADV ANTAGE - HMO) Cecilio Lane [id number] 10/11/2024 1 [facility] - DOS ON OR AFTER 2023 - ONE CARE (MEDICARE REPLACEMENT/ADV ANTAGE - HMO) Cecilio Lane [id number] [address] Notes Date Note Type Note Provider Name and Address Organization Details Recorded Time 03/23/2024 text/html .I am seeing the patient today under the supervision of Dr. Woody who was available but who did not see the patient.Patient returns postop right knee arthroscopy. Treated with partial medial meniscectomy. Also found arthritic changes to the knee to include: Grade 2 changes medially with grade 4 changes to the trochlear surface.Patient returns doing well. Denies any local or systemic signs of infection. Denies any calf pain.On exam: Afebrile, vital signs stable. Knee portal wounds were clean, dry, and intact. Sutures were removed and replaced with Steri-Strips. Comfortable range of motion the knee. Calf was supple.Impression: Status post arthroscopy of the kneePlan: Reviewed intraoperative findings, photos, and postoperative care. Discussed slow transition to activities per tolerance. Patient is to follow-up in the future as needed. Jae Gomez PA-C [address] [place] [address] [address] [facility], [place], [address], [facility] - [facility] 03/23/2024 14:22:51 08/24/2024 text/html HPI: Patient is in for [...] total knee arthroplasty techniques. Johnathon Birmingham MD [address] [place] [address] [address], [place], [address], [facility] - [facility] 08/24/2024 10:51:38
--- OUTSIDE RECORDS SUMMARY | 2024-11-15 08:26 | XMS_ITS | Continuity of Care Document ---
Author Organization [place] [facility] [place] 1[address] Floor Address [address] [place] [address] Assessment Encounter Date Assessment Date Assessment LastModified [...] he have continued difficulty about the knee. [employer] speech recognition policy services representative software was used to create portions of [...] Organization Details Recorded Time No complaint s 267394037 Active Status: 'I'; Not Available [facility] 4 09:11:58 Pain of left knee joint 035017706262 107 Active 2023 Adelaida Howard PA-C [address], [place], [address] , [facility] 4 12:38:45 Pain of right knee joint 222844846171 100 Active 2023 Adelaida Howard PA-C [address], [place], [address] , [facility] 4 12:38:54 Diabetes mellitus 51145127 Active 2023 LANTEE FERNANDEZ [facility] 4 12:21:55 Essential hypertens ion 87629923 Active 20[facility] 4 12:18:26 Coronary arteriosc lerosis 08327585 Active 2023 ELIQUIS SANDRA BARNEY [facility] 4 12:18:47 Problem Notes None recorded. Medical [...] Available oxycodone HCl-oxycodon e-ASA RX GIVEN AT [facility], AT TIME OF SURGERY 2017 active [...] Available Not Available Not Available Dexcom G7 Cap Sewer USE DIRECTED active Not Available Not Available No t Available Dexcom G7 Sensor device APPLY SENSOR TOPICALLY AND CHANGE EVERY 10 DAYS active Not Available Not Available No t Available Vitals Date Recorded Body height Body mass index (BMI) Body weight Provider Name and Address Organization Details Last Updated DateTime 10/11/2024 165.1 cm 29.3 kg/m2 74034.26 g SUZIE MCMAHON [place] [facility] [place] [facility] 10/11/2024 13:12:15 Social History None recorded. Functional Status None recorded. Mental Status None recorded. Family History Nothing Reported. Medical History Condition Response Allergies/Hayfever N Coronary Artery Disease N Anxiety/Depression N Breathing or lung disorders N Emphysema N Nerve Disorders N Thyroid Problems N COPD N Pacemaker N Anemia N Kidney/Bladder Problems N Vascular Disease N Heart Trouble Y Heart Attack ([place]) N Gastrointestinal Disease N Cholesterol N Diabetes Y Autoimmune disease N Inflammatory Joint disease N Bleeding Disorder N Orthotics N Arthritis N Seizures/Epilepsy N Blood Clot N AIDS/HIV N Congestive Heart Failure (CHF) N Acid Reflux (GERD) N Cancer N Stroke N Asthma N Circulation Problems N Peripheral Vascular Disease N Sleep Apnea N Hepatitis N Heart Disease N Rheumatoid Arthritis N Arrhythmia N Pulmonary Embolism N Headaches N Fibromyalgia N Hypertension Y Osteoporosis N Past Encounters Encounter ID Performer Location Encounter Start Date Encounter Closed Date Diagnosis/Indication Diagnosis SNOMED-CT Code Diagnosis ICD10 Code [id number] JOHAN Piedra [address] [place] [address] 10/11/2024 12:58:02 10/27/2024 16:00:49 Osteoarthritis of right knee joint [id number] 64939 M17.11 Health Concerns Section Related Observation LastModified by Organization Detai ls LastModified Time None Recorded Concern Status LastModified by Organization Details LastModified Time None Recorded Payers Encounter Date Sequence Insurance Name Policy Number Policy Ramos Covered Member ID Ramos Member ID Guarantor Name 10/11/2024 1 [facility] - DOS ON OR AFTER 2023 - ONE CARE (MEDICARE REPLACEMENT/ADV ANTAGE - HMO) Cecilio Lane [id number] [address]
--- NOTE | 2024-11-15 08:51 | A.SPINEOV_ITS ---
Intake Visit Reasons: MRI f/up Intake Note: Mr. Cochran is here today to F/u on the results to his MRI. [employer] Required: No Allergies No Known Allergies [No Known Allergies*] Allergy (Verified 09/16/24 10:04) Assessment & Plan Assessment & Plan (1) Lumbar radiculopathy, chronic: Code(s): M54.16 - Radiculopathy, lumbar region Category: Medical Plan Mr cochran returned in follow-up today to review his MRI done here at [facility]. Please see the previous notes for his reason for presentation. Basically he has had back pain and right anterior thigh pain going to his knee down into his anterior tibial region with standing and walking. He had a previous back surgery at L4-5 and L5-S1. Last year he underwent knee surgery and was told postoperatively that everything in his knee is basically recovered and that ultimately ended up with him coming to see us. We found a severe right L4 foraminal stenosis in the setting of a progressive spondylolisthesis at L4-5. He had undergone physical therapy. He was not a candidate for injections. He has tried medications. We had been discussing a possible L4-5 oblique lumbar interbody fusion. The patient has social circumstances that are not allowing him to take enough time off to undergo the surgery but he really is struggling to walk. We reviewed the surgery again as well as the recovery. He really more less just wanted to review his MRI today and go over the surgery again. I told him we could see him again in 3 months and see how he is doing but I do not expect it necessarily to get any better as time goes on. Unfortunately however, he feels like he can not take enough time down to undergo the surgery. Total amount of time spent in this visit was 20 minutes in discussion of symptoms, lumbar MRI imaging results and subsequent plan of care Fortino Richardson MD,PhD [facility] Coding Level of Care Code Est Pt Level 3 (54358) Diagnoses Lumbar radiculopathy, chronic M54.16
== END 2024-11-15 09:28 | disposition home or self-care (01) ==
PROVIDERS: PCP Internal Medicine; Visit Provider Physician Assistant
DX: M54.16 Radiculopathy, lumbar region (principal)
CPT/HCPCS: 99213

== ENCOUNTER → 2024-11-15 08:24 | Outpatient (BNVA) | payer MEDICARE, SELFPAY | PROVIDERS: PCP Internal Medicine; Visit Provider Physician Assistant | DX: M54.16 Radiculopathy, lumbar region (principal) | CPT/HCPCS: 99212 ==

== ENCOUNTER 2025-01-06 09:27 | Outpatient (AMB) | payer MEDICARE, SELFPAY ==
--- NOTE | 2025-01-06 09:32 | A.OFFVIS_ITS ---
Vital Signs 01/06/25 09:35 Height 5 ft 5 in Weight 168 lb BMI 28.0 BP 142/78 H Blood Pressure Location Rt brachial Position Sitting Pulse 78 Pulse Source Pulse Oximeter Pulse Oximetry (%) 99 Oxygen Delivery Method Room Air Intake Visit Reasons: 6m follow up Intake Note: Patient presents for EMG and nerve conduction study done on 09/09/24. Allergies No Known Allergies [No Known Allergies*] Allergy (Verified 01/06/25 09:48) HPI Comments Details: 79 y/o male patient presents for follow up of radiculopathy and neuropathy ( likely diabetic) EMG 2023 showed right common Peroneal neuropathy. Patient had knee surgery in February 2024 and since then he feels his right leg is weakness. He reports numbness in right leg radiating down from knee. Reviewed EMG from 2021- showed multilevel Right radiculopathy ( mid and lower level)and axonal polyneuropathy. ? His back pain is manageable. he had back surgery in 2006 and has been stable since then.No trouble with urinary urgency or gait. ? 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 Lumbar radiculopathy, chronic COVID-19 vaccine administered Arthritis Diabetes Aortic valvular disease HTN (hypertension) Surgical History Hx of left cataract extraction H/O colonoscopy Hx of shoulder surgery Hx of lumbar discectomy Hx of aortic valve replacement Social History Household Members: Spouse Alcohol intake: former Patient Tobacco Use Status: Former Tobacco user Physical Exam Vital Signs: Last Vital Signs Pulse 78 01/06/25 09:35 BP 142/78 H 01/06/25 09:35 Pulse Ox 99 01/06/25 09:35 Oxygen Delivery Method Room Air 01/06/25 09:35 BMI result Body Mass Index 28.0 Const General: cooperative and no acute distress Nutritional Appearance: overweight Orientation/consciousness: patient oriented x3 Limitations: no limitations Neck Neck: Yes full ROM and Yes supple Resp Effort & Inspection: normal respiratory effort and able to speak in complete sentences Neuro Other: gait - antalgic , limps on his right knee General: patient oriented x3, moves all extremities, no focal motor deficits and CN's II-XI intact bilaterally Cognition (Neuro): normal cognition Motor exam (neuro): 5/5 motor strength present throughout and Normal motor muscle tone present throughout Deep tendon reflexes (DTR's): Right triceps reflex intensity grade: 2+, Left triceps reflex intensity grade: 2+, Rt Biceps (C5, C6): 2+, Left biceps reflex intensity grade: 2+, Right brachioradialis reflex intensity grade: 2+, Left brachioradialis reflex intensity grade: 2+, Right patellar reflex intensity grade: 2+ and Left patellar reflex intensity grade: 2+ Psych Appearance: grossly normal Mental Status: mental status grossly normal Speech and movement: Normal speech and movement present Assessment & Plan Assessment & Plan (1) Axonal polyneuropathy: Comment: diabetic Code(s): G62.9 - Polyneuropathy, unspecified Category: Medical (2) Lumbar radiculopathy, chronic: Code(s): M54.16 - Radiculopathy, lumbar region Category: Medical (3) 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
[2025-01-06 09:35] VITALS: BP 142/78; PULSE 78; O2SAT 99; BMI 28.0
--- OUTSIDE RECORDS SUMMARY | 2025-01-06 09:59 | XMS_ITS | Clinical Summary ---
Author Organization [facility], Address [address] [place] [address] [place] [address] Phone Care Team Providers Care Jet Piercer Operator Name Role Phone Andrea Ramos MD Primary Care Provider [phone] Allergies No known active allergies Medications apixaban (Eliquis) 5 MG tablet Take 5 mg by mouth 2 (two) times a day 7 Active metFORMIN (GLUCOPHAGE) 1000 MG tablet Take 1,000 mg by mouth 2 (two) times a day 6 Active metoprolol tartrate (LOPRESSOR) 100 MG tablet Take 1 tablet (100 mg total) by mouth 3 times a day 1 Active hydrALAZINE (APRESOLINE) 100 MG tablet Take 1.5 tablets (150 mg total) by mouth 2 (two) times a day 1 Active valsartan (DIOVAN) 160 MG tablet Take 160 mg by mouth 2 (two) times a day Active spironolactone (ALDACTONE) 25 MG tablet Take 25 mg by mouth 1 (one) time each day Active Lantus 100 UNIT/ML injection INJECT 32 UNITS INTO THE SKIN AT BEDTIME. 1 Active ammonium lactate (AMLACTIN) 12 % cream 1 Active tadalafil (CIALIS) 20 MG tablet TAKE A HALF TO ONE TABLET ONE HOUR BEFORE INTERCOURSE 2 Active BD Insulin Syringe U/F 31G X 03/31 1 ML misc USE ONCE DAILY TO ADMINISTER INSULIN 2 Active FREESTYLE LITE test strip USE TO TEST BLOOD SUGAR TWICE DAILY 2 Active atorvastatin (LIPITOR) 40 MG tablet TOME GEOVANY TABLETA TODOS LOS D 2 Active amoxicillin (AMOXIL) 500 MG capsule TOME CUATRO C PSULAS POR V A ORAL 60 MINUTES PRIOR TO DENTAL APPOINTMENT 2 Active tamsulosin (Flomax) 0.4 MG 24 hr capsule Take 0.4 mg by mouth 6 Active pravastatin (PRAVACHOL) 10 MG tablet TOME GEOVANY TABLETA TODOS LOS D 2 Active NIFEdipine CC (ADALAT CC) 90 MG 24 hr tablet 2 Active doxazosin (CARDURA) 4 MG tablet TAKE 1 TABLET BY MOUTH EVERY NIGHT 90 tablet 3 3 Active nortriptyline (PAMELOR) 25 MG capsule TAKE 1 CAPSULE BY MOUTH 2 TIMES DAILY FOR 60 DAYS. 3 Active Trulicity 0.75 MG/0.5ML solution pen-injector INJECT 0.75 MG INTO THE SKIN ONCE A WEEK. 3 Active B-Complex, Folic Acid, tablet TOME GEOVANY TABLETA DOS LOS D 3 Active Farxiga 10 MG tablet 3 Active Diclofenac Sodium 1 % gel APPLY 1 G TOPICALLY 3 TIMES DAILY NEEDED (PAIN). 3 Active Lancets (freestyle) lancets 3 Active Active Problems Problem Noted Date Diagnosed Date Monoclonal gammopathy 10/04/2023 Nephrolithiasis 11/29/2021 10/06/2023 Overview (10/06/2023): Follows with [facility] on annual basis. Essential hypertension 02/22/2020 Microalbuminuria 02/22/2020 Type 2 diabetes mellitus 02/22/2020 Encounters Date Type Department Care Team Description 10/26/2024 3:45 PM EST Office Visit [facility], [address] [place] [address] German Simpson MD Stage 3a chronic kidney disease (HCC) (Primary Dx); Microalbuminuria; Essential hypertension; Monoclonal gammopathy; Type 2 diabetes mellitus with diabetic chronic kidney disease (HCC) from Last 3 Months Social History Tobacco Use Types Packs/Day Years Used Date Smoking Tobacco: Never Sex and Gender Information Value Date Recorded Sex Assigned at Not on file Legal Sex Male 4:33 PM EST Gender Identity Not on file Sexual Orientation Not on file Last Filed Vital Signs Vital Sign Reading Time Taken Comments Blood Pressure 130/64 10/26/2024 3:13 PM EST Pulse 89 04/27/2024 1:21 PM EDT Temperature - - Respiratory Rate - - Oxygen Saturation - - Inhaled Oxygen Concentration - - Weight 79.8 kg (176 lb) 07/10/2021 10:15 AM EDT Height 165.1 cm (5' 5 ) 05/18/2019 12:00 PM EDT Body Mass Index 29.29 05/18/2019 12:00 PM EDT Plan of Treatment Upcoming Encounters Date Type Department Care Team (Late st Contact Info) Description 05/17/2025 2:15 PM EDT Office Visit [facility], [address] [place] [phone] German Simpson MD [address] [place] [address] Health Maintenance Due Date Last Done Comments Diabetes: Ophthalmology Exam 02/06/2020 Diabetes: Pedal Pulse Checked 02/06/2020 Diabetes: Sensory Foot Exam 02/06/2020 Diabetes: Visual Foot Exam 02/06/2020 Diabetes: Hemoglobin A1C 04/29/2024 024, 10/20/2023, 07/13/2023 Influenza Vaccine (#1) 2024 Pneumococcal Vaccine: 65+ Years Completed 11/29/2021, 08/06/2012 Hepatitis B Vaccine Aged Out No longe r eligible based on patient's age to complete this topic Insurance [facility] [employer] DUAL SNP ([id number]) [place] [id number] Care Teams Jet Piercer Operator Relationship Specialty Start Date End Date Andrea Ramos MD PCP - General 09/20/19
--- OUTSIDE RECORDS SUMMARY | 2025-01-06 09:59 | XMS_ITS | Encounter Summary ---
Author Organization [employer] Address [address] [place] [address] Care Team Providers Care High Risk Case Manager Name Role Phone Andrea Ramos MD Primary Care Provider [phone] Encounter Details Date Type Department Care Team (Late st Contact Info) Description 12/26/2024 Telephone Endocrinology - [place] [address] [place] [phone] María Welch PA [address] [place] [address] Social History Tobacco Use Types Packs/Day Years Used Date Smoking Tobacco: Never Assessed Passive Smoke Exposure: Never Smokeless Tobacco: Never [...] AM EST documented as of this encounter Progress Notes * Saba Suggs MA - 12/27/2024 10:[address] [place], Will you review this message and provide script for provider out of the office? * Karen Lovell - 12/26/2024 2:19 PM EST Patient is calling stating his Door [address] Lyle would like María Welch to fax an order for diabetic shoes to [facility] in [address] Attention Alondra Alarcon. Any question call [phone] documented in this encounter Plan of Treatment Upcoming Encounters Date Type Department Care Team (Late st Contact Info) Description 01/30/2025 11:30 AM EDT Office Visit Adult Medicine [facility] - [address] [phone] Andrea Ramos MD [address] [place] [id number] 02/08/2025 10:00 AM EDT Ancillary Procedure [facility] [address] [phone] 02/22/2025 10:15 AM EDT Office Visit [facility] Hematology Oncology [address] [place] [phone] Kusum Bess MD [address] [place] [address] 03/10/2025 2:15 PM EDT Office Visit Endocrinology [address] [phone] María Welch, [place] [address] [place] [address] 10/31/2025 10:00 AM EST Office Visit Orthopedic Surgery - [place] [address] [phone] Ruslan Lyle DPM [address] [address] documented as of this encounter Visit Diagnoses Not on filedocumented in this encounter Care Teams High Risk Case Manager Relationship Specialty Start Date End Date Andrea Ramos MD [address] [place] [address] PCP - General Internal Medicine 01/23/12 documented as of this encounter
--- OUTSIDE RECORDS SUMMARY | 2025-01-06 10:00 | XMS_ITS | Clinical Summary ---
Author Organization [address] [facility] Address [address] [place] [address] Phone Care Team Providers Care Head Nurse Name Role Phone Andrea Ramos MD Primary Care Provider [phone] Allergies No known active allergies Medications dapagliflozin propanediol (FARXIGA) 10 mg tablet Take 1 tablet (10 mg total) by mouth 1 (one) time each day. Active doxazosin (CARDURA) 4 mg tablet Take by mouth at bedtime. Active insulin glargine (LANTUS) 100 unit/mL injection Inject 32 Units under the skin 1 (one) time each day in the morning. Active metoprolol succinate (TOPROL-XL) 100 mg 24 hr tablet Take 1 tablet (100 mg total) by mouth 1 (one) time each day. Active NIFEdipine XL (PROCARDIA XL) 90 mg 24 hr tablet Take 1 tablet (90 mg total) by mouth 1 (one) time each day. Active rosuvastatin (CRESTOR) 10 mg tablet Take 1 tablet (10 mg total) by mouth 1 (one) time each day. Active tamsulosin (FLOMAX) 0.4 mg 24 hr capsule Take 1 capsule (0.4 mg total) by mouth 1 (one) time each day. Active valsartan (DIOVAN) 160 mg tablet Take 1 tablet (160 mg total) by mouth 1 (one) time each day. Active Eliquis 5 mg tablet TAKE ONE TABLET BY MOUTH TWICE A DAY ^1R1,1R3 180 tablet 1 09/26/2024 Active hydrALAZINE (APRESOLINE) 100 mg tablet TAKE 1 AND 1/2 TABLET BY MOUTH TWICE A DAY ^1HR1,1HR3 270 tablet 1 09/26/2024 Active FreeStyle Lancets 28 gauge lancets 1 each by Other route 3 (three) times a day. 11/08/2024 Active blood sugar diagnostic (FreeStyle Lite Strips) test strip Use to check BS 3 times a day 300 each 3 12/02/2024 12/02/19 26 Active insulin lispro 100 unit/mL injection Inject 3 times a day with meals per sliding scale: 100-149: 8 units; 150-200: 10 units; 201-250: 11 units; 251-300: 12 units; 301-350:13 units; 351-400: 15 units, DINNER - 2 UNITS 45 mL 5 12/02/2024 Active Active Problems Problem Noted Date Diagnosed Date Heart murmur 11/06/2024 HLD (hyperlipidemia) 11/06/2024 Mitral regurgitation 11/06/2024 Chronic renal impairment 07/25/2024 Coronary arteriosclerosis 02/12/2024 Overview (11/06/2024): ELIQUIS Diabetes mellitus 02/12/2024 Overview (11/06/2024): TEE ROBERTS Monoclonal gammopathy 10/04/2023 Sciatica 08/18/2022 Overview (11/06/2024): Last Assessment & Plan: Mr. Lane is here to discuss his persistent right leg pain and paresthesias. He was seen here in the fall but nothing has improved. He gives a history of chronic osteoarthritis of the right knee for which he had 3 injections last year that were not cortisone due to his diabetes but unfortunately they did not help. He had arthroscopic surgery 5 years or so ago and there is no plan for future surgery on the right knee. This involved to pain in the right thigh across the knee and into the morocho for which she was referred to Dr. Taylor of neurology. He was prescribed gabapentin but says he had it in the past with no relief so he is not taking it. An EMG was performed at [facility] and a lumbar spine MRI performed and he was referred to us. He also describes that his right leg goes to sleep with standing especially if he is leaning against a counter. He has had physical therapy and tried B complex vitamin suggested by Dr. Taylor (per the patient) all without improvement. His exam is stable. We had previously discussed his MRI as well as the flexion-extension x- rays from 08/18/2022 and I do not feel that surgery is appropriate. I reviewed the EMG by Dr. Hamm on 10/30/2022 which shows a chronic right mid to lower lumbar radiculopathy likely from his surgery in 2006 and moderately severe axonal sensory motor peripheral neuropathy which is consistent with his diabetes. I suggested a trial of Pamelor for his right leg symptoms and discontinued the gabapentin. Spinal stenosis 08/18/2022 Chronic diastolic congestive heart failure 03/07 Overview (11/06/2024): -In spite of this, symptomatically he probably only has NYHA class II symptoms -See most recent echocardiogram under valve replacement section Last Assessment & Plan: Euvolemic on exam today, does not require a maintenance diuretic but is on spironolactone for blood pressure control TIA (transient ischemic attack) 03/07/2022 Benign prostatic hyperplasia 11/29/2021 Nephrolithiasis 11/29/2021 Overview (11/06/2024): Follows with [facility]rology on annual basis. Renal cyst 11/29/2021 Type 2 diabetes mellitus 02/22/2020 Microalbuminuria 02/22/2020 Atrial flutter 03/18/2016 Overview (11/06/2024): - Chronic, likely atypical - On Eliquis for CVA prophylaxis and high-dose metoprolol for rate control Last Assessment & Plan: Auto rate controlled, continue Eliquis 5 twice daily for CVA prophylaxis, in reviewing his chart, he he reports that he was told to stop his beta-rissa though I see no clear documentation as to why this is. I suspect this is why his heart rate is higher and he is having PVCs and his blood pressure is suboptimally controlled. To be on the safe side, I am switching him to Toprol XL 100 mg daily (this is half his previous dose which was Lopressor 100 twice daily). S/P AVR (aortic valve replacement) 01/16/2014 Overview (11/06/2024): -Status post bioprosthetic aortic valve replacement in 2016 with a #23 pericardial valve -Had a preop cath on 01/10/2016 which did not show any significant coronary disease -Most recent echocardiogram on 01/12/2024 showing mild, concentric left ventricular hypertrophy with normal cavity size, hyperdynamic LV systolic function with midsystolic gradient of 9 mmHg that does not appreciably increase with Valsalva, normal regional wall motion, paradoxic septal motion in keeping with prior cardiac surgery, bioprosthetic aortic valve replacement that is well-seated with physiologic gradients, moderately dilated RV with mildly reduced systolic function, biatrial enlargement, mild pulmonary hypertension, mild mitral stenosis possibly with a mean gradient of 5 mmHg but at a heart rate of 100 bpm with severe MAC-unchanged from 02/17/2022 Last Assessment & Plan: Valve sounds good today, follow-up echocardiogram in 1 year for surveillance DM (diabetes mellitus), type 2 with renal compli cations 12/28/2013 Overview (11/06/2024): Microalbumin 263 on 11/21/13. OA (osteoarthritis) of knee 10/21/2012 Essential hypertension 02/18/2012 Overview (11/06/2024): Last Assessment & Plan: Seems to be suboptimally controlled at home but controlled in the office. Resuming Toprol XL as above. Encounters Date Type Department Care Team Description 12/26/2024 Telephone Endocr[address] [phone] María Welch PA 12/02/2024 1:00 PM EST Office Visit [address] [phone] María Welch PA Type 2 diabetes mellitus with other specified complication, unspecified whether group home insulin use ([facility]) (Primary Dx); Essential hypertension; Hyperlipidemia, unspecified hyperlipidemia type 11/04/2024 1:15 PM EST Office Visit [address] [phone] María Welch PA Type 2 diabetes mellitus with diabetic chronic kidney disease, unspecified CKD stage, unspecified whether group home insulin use ([facility]) (Primary Dx); Essential hypertension; Hyperlipidemia, unspecified hyperlipidemia type 10/31/2024 9:00 AM EST Office Visit Orthopedic Surgery [facility] [address] [facility] [address] [place] [phone] Ruslan Lyle DPM Metatarsalgia of both feet (Primary Dx); Corns and callosities; Type II diabetes mellitus with peripheral circulatory disorder ([facility]); Diabetic mononeuropathy simplex ([facility]); Acquired hammer toe of right foot 10/24/2024 10:15 AM EST Office Visit [facility] [address] [place] [phone] Kusum Bess MD IgG monoclonal gammopathy (Primary Dx); Chronic renal insufficiency, stage 2 (mild) 10/12/2024 1:45 PM EST Office Visit Orthopedic Surgery [facility] 175 [facility] [address] [place] [phone] Tay Walton MD Postoperative state (Primary Dx) from Last 3 Months Surgical History Surgery Date Site/Laterality Comments LUMBAR LAMINECTOMY 2006 PROCEDURE: HISTORICAL LUMB LAMINECTOMY; COMMENT: Dr. Grimes, L4-5, L5-S1 decompression HAND SURGERY PROCEDURE: HISTORICAL HAND SURGERY; COMMENT: left 3trd trigger COLONOSCOPY 03/02/2014 PROCEDURE: HISTORICAL COLONOSCOPY; COMMENT: normal; would not repeat CATARACT EXTRACTION 2020 Bilateral PROCEDURE: HISTORICAL CATARACT REMOVAL OTHER SURGICAL HISTORY 2015 PROCEDURE: MI RPLCMT AORTIC VALVE ANNULUS ENLGMENT NONC SINUS KNEE SURGERY 2016 Right PROCEDURE: HISTORICAL KNEE SURGERY SHOULDER SURGERY 1990 Right PROCEDURE: HISTORICAL SHOULDER SURGERY MECHANICAL AORTIC VALVE REPLACMENT AND MITRAL VALVE REPAIR N/A TRIGGER FINGER RELEASE 08/19/2024 Left TRIGGER FINGER RELEASE 09/30/2024 Right Medical History Medical History Date Comments HTN (hypertension) 02/18/2012 DX:HTN (hyper tension) DM type 2 (diabetes mellitus , type 2) ([facility]) 02/18/2012 DX:DM type 2 (diabetes melli tus, type 2) ([facility]) Historical Medical DX 02/18/2012 DX:Hyperli pidemia LDL goal < 70 OA (osteoarthritis) of knee 10/21/2012 DX:O A (osteoarthritis) of knee; COMMENT: right knee Atrial fibrillation, chronic (CMS/HCC) DX:Atrial fibrillation, chronic (HCC); COMMENT: dx 2016? Hyperlipidemia Heart valve disease Trigger finger Social History Tobacco Use Types Packs/Day Years Used Date Smoking Tobacco: Never Assessed Passive Smoke Exposure: Never Smokeless Tobacco: Never Tobacco Cessation:Counseling Given: Not Answered Alcohol Use Standard Drinks/Week Comments Not Currently 0 (1 standard drink = 0.6 oz pur e alcohol) Sex and Gender Information Value Date Recorded Sex Assigned at Male 09/30/2024 8:23 AM EST Legal Sex Male 1:55 PM EST Gender Identity Male 09/30/2024 8:23 AM EST Sexual Orientation Straight 09/30/2024 8: 23 AM EST Obstetrics History Last Filed Vital Signs Vital Sign Reading Time Taken Comments Blood Pressure 118/60 12/02/2024 1:07 PM EST C Pulse 77 12/02/2024 1:07 PM EST Temperature 36.5 ??C (97.7 ??F) 12/02/2024 1:07 PM ES T Respiratory Rate - - Oxygen Saturation 99% 12/02/2024 1:07 PM EST Inhaled Oxygen Concentration - - Weight 73.3 kg (161 lb 9.6 oz) 12/02/2024 1:07 P M EST Height 165.1 cm (5' 5 ) 12/02/2024 1:07 PM EST Body Mass Index 26.89 12/02/2024 1:07 PM EST Plan of Treatment Upcoming Encounters Date Type Department Care Team (Late st Contact Info) Description 01/30/2025 11:30 AM EDT Office Visit Adult Medicine [address] [phone] Andrea Ramos MD [address] [place] [phone] 02/08/2025 10:00 AM EDT Ancillary Procedure [facility] [address] [place] [address] [place] [phone] 02/22/2025 10:15 AM EDT Office Visit [facility] [address] [place] [phone] Kusum Bess MD [address] [place] [address] 03/10/2025 2:15 PM EDT Office Visit Endocrinology [facility] [address] [place] [phone] María Welch PA [address] [place] [address] 10/31/2025 10:00 AM EST Office Visit Orthopedic Surgery [facility] [address] [phone] Ruslan Lyle DPM [address] [address] Health Maintenance Due Date Last Done Comments Diabetes: Annual Foot Exam 1957 Diabetes: Annual Retina Eye Exam 1955 Zoster Vaccines (1 of 2) 1997 RSV Immunization Patients 60+ Years Old (1 - 1-dose 75+ series) 2022 Depression Screening 10/24/2022 Falls Risk Assessment 10/24/2022 Hepatitis C Screening 10/24/2022 Medicare Annual Wellness Visit 10/24/2022 Social Influencers of Health Screening 10/24/2022 COVID-19 Vaccine ( season) 2024 09/15/2022, 09/13/2021, 03/07/2021, Additional history exists Influenza Vaccine (#1) 2024 09/24/2007 Diabetes: Blood Sugar Control Test (HGBA1C) 06/01/2025 12/02/2024, 08/05/2024, 05/11/2024 Diabetes: Annual Urine Albumin-Creatinine Ratio (uACR) 12/02/2025 12/02/2024 Diabetes: Annual GFR (Glomerular Filtration Rate) 12/02/2025 12/02/2024, 10/24/2024 Hypertension/CHF/CAD Annual BMP Blood Test 12/02/2025 12/02/2024, 10/24/2024 Cholesterol Screening (Lipid Panel) 12/02/2029 12/02/2024 DTaP,Tdap,and Td Vaccines (3 - Td or Tdap) 11/29/2031 11/29/2021, 05/14/2011 Pneumococcal Vaccine: 50+ Years Completed 11/29/2021, 08/06/2012 HIB Vaccines Aged Out No longer eligi ble based on patient's age to complete this topic HPV Vaccines Aged Out No longer eligi ble based on patient's age to complete this topic Hepatitis A Vaccines Aged Out No long er eligible based on patient's age to complete this topic Hepatitis B Vaccines Aged Out No long er eligible based on patient's age to complete this topic IPV Vaccines Aged Out No longer eligi ble based on patient's age to complete this topic MMR Vaccines Aged Out No longer eligi ble based on patient's age to complete this topic Meningococcal ACWY Vaccine Aged Out N o longer eligible based on patient's age to complete this topic Meningococcal B Vacine Aged Out No lo nger eligible based on patient's age to complete this topic RSV Immunization Patients Under 20 months Aged Out No longer eligible based on patient's age to complete this topic Varicella Vaccines Aged Out No longer eligible based on patient's age to complete this topic Procedures Procedure Name Priority Date/Time Associated Diagnosis Comments HEMOGLOBIN A1C Routine 12/02/2024 1:40 PM EST Type 2 diabetes mellitus with other specified complication, unspecified whether group home insulin use (CMS/HCC) BASIC METABOLIC PANEL Routine 12/02/2024 1:40 PM EST Type 2 diabetes mellitus with other specified complication, unspecified whether group home insulin use (CMS/HCC) LIPID PANEL WITH REFLEX TO DIRECT LDL Routine 12/02/2024 1:40 PM EST Type 2 diabetes mellitus with other specified complication, unspecified whether termite control service representative insulin use (CMS/HCC) MICROALBUMIN CREATININE URINE RATIO Routine 12/02/2024 1:40 PM EST Type 2 diabetes mellitus with other specified complication, unspecified whether group home insulin use (CMS/HCC) POC GLUCOSE Routine 12/02/2024 1:10 PM EST Type 2 diabetes mellitus with other specified complication, unspecified whether group home insulin use ([facility]) POC GLUCOSE Routine 11/04/2024 2:13 PM EST Type 2 diabetes mellitus with diabetic chronic kidney disease, unspecified CKD stage, unspecified whether group home insulin use ([facility]) POC URINE AUTO W/O MICRO Routine 11/04/2024 1:55 PM EST Type 2 diabetes mellitus with diabetic chronic kidney disease, unspecified CKD stage, unspecified whether group home insulin use ([facility]) POC GLUCOSE Routine 11/04/2024 1:54 PM EST Type 2 diabetes mellitus with diabetic chronic kidney disease, unspecified CKD stage, unspecified whether group home insulin use ([facility]) CBC WITH AUTO DIFFERENTIAL Routine 10/24/2024 11:00 AM EST IgG monoclonal gammopathy Chronic renal insufficiency, stage 2 (mild) IMMUNOGLOBULINS IGG, IGA, IGM Routine 10/24/2024 11:00 AM EST Monoclonal paraproteinemia Chronic kidney disease, stage II (mild) COMPREHENSIVE METABOLIC PANEL Routine 10/24/2024 11:00 AM EST IgG monoclonal gammopathy Chronic renal insufficiency, stage 2 (mild) CBC AND DIFFERENTIAL Routine 10/24/2024 11:00 AM EST IgG monoclonal gammopathy Chronic renal insufficiency, stage 2 (mild) ..MISCELLANEOUS REFERENCE LAB TEST 10/24/2024 from Last 3 Months Results * Lipid panel with reflex to direct LDL (12/02/2024 1:40 PM EST) Pathologist [facility] Cholesterol 122 0 - 200 mg/dL LAB CHEMISTRY METHOD 12/02/2024 10:46 PM EST [facility] Triglycerides 107 0 - 150 mg/dL LAB CHEMISTRY METHOD 12/02/2024 10:46 PM EST [facility] HDL 63 >=40 mg/dL LAB CHEMISTRY METHOD 12/02/2024 10:46 PM EST [facility] LDL Calculated 38 0 - 100 mg/dL LAB CHEMISTRY METHOD 12/02/2024 10:46 PM EST [facility] VLDL Cholesterol Hipolito 21.4 mg/dL LAB CHEMISTRY METHOD 12/02/2024 10:46 PM EST [facility] Non HDL Chol. (LDL+VLDL) 59 <145 mg/dL LAB CHEMISTRY METHOD 12/02/2024 10:46 PM EST [facility] Chol/HDL Ratio 1.9 0.0 - 4.4 LAB CHEMISTRY METHOD 12/02/2024 10:46 PM EST [facility] Blood Venous blood specimen / Unknown Venipuncture / Unknown 12/02/2024 1:40 PM EST 12/02/2024 1:40 PM EST us María PERRY LAB BLOOD ORDERABLES Final Result Performing Organization Address City/[facility]/ZIP Co de Phone Number [facility] [address] [place] [address], [place] [phone] * (ABNORMAL) Microalbumin creatinine urine ratio (12/02/2024 1:40 PM EST) Creatinine, Urine 114.0 mg/dL LAB CHEMISTRY METHOD 12/02/2024 11:25 PM EST [facility] Microalb, Ur 450.0(H) 0.0 - 29.0 mg/L LAB CHEMISTRY METHOD 12/02/2024 11:25 PM EST [facility] Microalb/Crea t Ratio 395(H) <30 mg/g creat LAB CHEMISTRY METHOD 12/02/2024 11:25 PM EST [facility] Urine Urine specimen from urethra / Unknown Non-blood Collection / Unknown 12/02/2024 1:40 PM EST 12/02/2024 1:40 PM EST us María PERRY LAB URINE ORDERABLES Final Result [facility] [address] [place] [address], [place] [phone] * (ABNORMAL) Hemoglobin A1c (12/02/2024 1:40 PM EST) [facility] Hemoglobin A1C 8.1(H) <6.5 % LAB CHEMISTRY METHOD 12/02/2024 10:06 PM EST [facility] Mean Bld Glu Estim. 186 mg/dL LAB CHEMISTRY METHOD 12/02/2024 10:06 PM [facility] Blood Venous blood specimen / Unknown Venipuncture / Unknown 12/02/2024 1:40 PM EST 12/02/2024 1:40 PM EST María PERRY LAB BLOOD ORDERABLES Final Result Performing Organization Address [facility]/ZIP Co de Phone Number [facility] [address] [place] [address], * (ABNORMAL) Basic metabolic panel (12/02/2024 1:40 PM EST) [facility] Sodium 134 133 - 145 mmol/L LAB CHEMISTRY METHOD 12/02/2024 10:45 PM [facility] Potassium 4.1 3.5 - 5.5 mmol/L LAB CHEMISTRY METHOD 12/02/2024 10:45 PM [facility] Chloride 102 96 - 110 mmol/L LAB CHEMISTRY METHOD 12/02/2024 10:45 PM [facility] CO2 25 21 - 32 mmol/L LAB CHEMISTRY METHOD 12/02/2024 10:45 PM [facility] Anion Gap 7 3 - 11 LAB CHEMISTRY METHOD 12/02/2024 10:45 PM [facility] Glucose 234(H) 70 - 100 mg/dL LAB CHEMISTRY METHOD 12/02/2024 10:45 PM [facility] BUN 31(H) 5 - 25 mg/dL LAB CHEMISTRY METHOD 12/02/2024 10:45 PM EST [facility] Creatinine 1.75(H) 0.70 - 1.30 mg/dL LAB CHEMISTRY METHOD 12/02/2024 10:45 PM EST [facility] eGFR 40(L) >=60 mL/min/1. 73m2 LAB CHEMISTRY METHOD 12/02/2024 10:45 PM EST [facility] Comment:Calculation based on the??Chronic Kidney Disease Epidemiology Collaboration (CKD-EPI) equation refit??without adjustment for race. BUN/Creatinine Ratio 17.7 LAB CHEMISTRY METHOD 12/02/2024 10:45 PM EST [facility] Calcium 9.2 8.5 - 10.5 mg/dL LAB CHEMISTRY METHOD 12/02/2024 10:45 PM EST [facility] Blood Venous blood specimen / Unknown Venipuncture / Unknown 12/02/2024 1:40 PM EST 12/02/2024 1:40 PM EST us María PERRY LAB BLOOD ORDERABLES Final Result [facility] [address] [place] [address], [place] [phone] * POC glucose manually resulted (12/02/2024 1:10 PM EST) Only the most recent of3 resultswithin the time period is included. Glucose POC 220 mg/dL Comment:non fasting Blood Capillary blood specimen / Unknown 12/02/2024 1:10 PM EST us María PERRY POINT OF CARE TEST ENTER/ED IT ORDERABLES Final Result * (ABNORMAL) POC Urine Auto W/O Micro (11/04/2024 1:55 PM EST) Glucose UA POC 2+(A) Negative, Trace mg/dL Bilirubin UA POC 2+(A) Negative, Small Ketones UA POC Negative Negative, Trace Specific Castine UA POC 1.010 Blood UA POC Negative Negative, Large PH UA POC 6.0 Protein UA POC 1+(A) Negative, >=300 mg/dL Urobilinogen UA POC 0.2 E.U./dL mg/dL Nitrite UA POC Negative Negative Leukocytes UA POC Negative Negative Urine Urine specimen obtained by clean catch procedure / Unknown 11/04/2024 1:55 PM EST María PERRY POINT OF CARE TEST ENTER/ED IT ORDERABLES Final Result * (ABNORMAL) CBC auto differential (10/24/2024 11:00 AM EST) WBC 9.6 4.8 - 10.8 K/mcL LAB HEMETOLOGY METHOD 10/24/2024 11:37 AM [facility] RBC 4.60 4.50 - 5.50 M/mcL LAB HEMETOLOGY METHOD 10/24/2024 11:37 AM [facility] Hemoglobin 12.7(L) 13.5 - 17.5 g/dL LAB HEMETOLOGY METHOD 10/24/2024 11:37 AM [facility] Hematocrit 39.2(L) 42.0 - 54.0 % LAB HEMETOLOGY METHOD 10/24/2024 11:37 AM [facility] MCV 85.2 79.0 - 98.0 FL LAB HEMETOLOGY METHOD 10/24/2024 11:37 AM [facility] MCH 27.6 27.0 - 32.0 pcg LAB HEMETOLOGY METHOD 10/24/2024 11:37 AM [facility] MCHC 32.4 32.0 - 37.0 g/dL LAB HEMETOLOGY METHOD 10/24/2024 11:37 AM [facility] RDW 13.5 11.0 - 15.0 % LAB HEMETOLOGY METHOD 10/24/2024 11:37 AM [facility] Platelets 282 130 - 400 K/mcL LAB HEMETOLOGY METHOD 10/24/2024 11:37 AM [facility] MPV 11.5(H) 7.0 - 11.0 FL LAB HEMETOLOGY METHOD 10/24/2024 11:37 AM [facility] NRBC 0.0 <1.0 % LAB HEMETOLOGY METHOD 10/24/2024 11:37 AM [facility] NRBC Absolute 0.00 <0.10 K/mcL LAB HEMETOLOGY METHOD 10/24/2024 11:37 AM [facility] Neutrophils Relative 66.8 % LAB HEMETOLOGY METHOD 10/24/2024 11:37 AM [facility] Lymphocytes Relative 19.2 % LAB HEMETOLOGY METHOD 10/24/2024 11:37 AM [facility] Monocytes Relative 11.0 % LAB HEMETOLOGY METHOD 10/24/2024 11:37 AM [facility] Eosinophils Relative 2.3 % LAB HEMETOLOGY METHOD 10/24/2024 11:37 AM [facility] Basophils Relative 0.4 % LAB HEMETOLOGY METHOD 10/24/2024 11:37 AM [facility] Immature Granulocytes Relative 0.3 % LAB HEMETOLOGY METHOD 10/24/2024 11:37 AM [facility] Neutrophils Absolute 6.40 1.50 - 7.00 K/mcL LAB HEMETOLOGY METHOD 10/24/2024 11:37 AM [facility] Lymphocytes Absolute 1.84 1.00 - 5.00 K/mcL LAB HEMETOLOGY METHOD 10/24/2024 11:37 AM [facility] Monocytes Absolute 1.05(H) 0.20 - 1.00 K/mcL LAB HEMETOLOGY METHOD 10/24/2024 11:37 AM [facility] Eosinophils Absolute 0.22 0.00 - 0.50 K/[facility] LAB HEMETOLOGY METHOD 10/24/2024 11:37 AM EST [facility] Basophils Absolute 0.04 0.00 - 0.20 K/[facility] LAB HEMETOLOGY METHOD 10/24/2024 11:37 AM EST [facility] Immature Granulocytes Absolute 0.03 0.00 - 0.03 K/[facility] LAB HEMETOLOGY METHOD 10/24/2024 11:37 AM EST [facility] Blood Venous blood specimen / Unknown Venipuncture / Unknown 10/24/2024 11:00 AM EST 10/24/2024 11:21 AM EST Kusum Bess MD LAB BLOOD ORDERABLES Final R esult [facility] [address] [place] [address], [place] [phone] * (ABNORMAL) Immunoglobulins IgG, IgA, IgM (10/24/2024 11:00 AM EST) Total IgG 2,450(H) 549 - 1,584 mg/dL LAB CHEMISTRY METHOD 10/24/2024 1:00 PM [facility] IgA 85 61 - 348 mg/dL LAB CHEMISTRY METHOD 10/24/2024 1:00 PM EST [facility] IgM 20(L) 23 - 259 mg/dL LAB CHEMISTRY METHOD 10/24/2024 1:00 PM EST [facility] Blood Venous blood specimen / Unknown Venipuncture / Unknown 10/24/2024 11:00 AM EST 10/24/2024 11:24 AM EST us Kusum Bess MD LAB BLOOD ORDERABLES Final R esult [facility] [address] [place] [address], [place] [phone] * (ABNORMAL) Comprehensive metabolic panel (10/24/2024 11:00 AM EST) Sodium 138 133 - 145 mmol/L LAB CHEMISTRY METHOD 10/24/2024 12:33 PM [facility] Potassium 3.9 3.5 - 5.5 mmol/L LAB CHEMISTRY METHOD 10/24/2024 12:33 PM [facility] Chloride 105 96 - 110 mmol/L LAB CHEMISTRY METHOD 10/24/2024 12:33 PM [facility] CO2 26 21 - 32 mmol/L LAB CHEMISTRY METHOD 10/24/2024 12:33 PM [facility] Anion Gap 7 3 - 11 LAB CHEMISTRY METHOD 10/24/2024 12:33 PM [facility] Glucose 166(H) 70 - 100 mg/dL LAB CHEMISTRY METHOD 10/24/2024 12:33 PM [facility] BUN 24 5 - 25 mg/dL LAB CHEMISTRY METHOD 10/24/2024 12:33 PM [facility] Creatinine 1.55(H) 0.70 - 1.30 mg/dL LAB CHEMISTRY METHOD 10/24/2024 12:33 PM [facility] eGFR 46(L) >=60 mL/min/1. 73m2 LAB CHEMISTRY METHOD 10/24/2024 12:33 PM [facility] Comment:Calculation based on the??Chronic Kidney Disease Epidemiology Collaboration (CKD-EPI) equation refit??without adjustment for race. BUN/Creatinine Ratio 15.5 LAB CHEMISTRY METHOD 10/24/2024 12:33 PM [facility] Calcium 10.0 8.5 - 10.5 mg/dL LAB CHEMISTRY METHOD 10/24/2024 12:33 PM [facility] AST (SGOT) 19 10 - 42 unit/L LAB CHEMISTRY METHOD 10/24/2024 12:33 PM [facility] ALT (SGPT) 19 10 - 60 unit/L LAB CHEMISTRY METHOD 10/24/2024 12:33 PM EST [facility] Alkaline Phosphatase 67 42 - 121 unit/L LAB CHEMISTRY METHOD 10/24/2024 12:33 PM [facility] Total Protein 8.2(H) 6.0 - 8.0 g/dL LAB CHEMISTRY METHOD 10/24/2024 12:33 PM EST [facility] Albumin 3.8 3.2 - 5.0 g/dL LAB CHEMISTRY METHOD 10/24/2024 12:33 PM [facility] Total Bilirubin 0.8 0.0 - 1.4 mg/dL LAB CHEMISTRY METHOD 10/24/2024 12:33 PM [facility] Blood Venous blood specimen / Unknown Venipuncture / Unknown 10/24/2024 11:00 AM EST 10/24/2024 11:24 AM EST us Kusum Bess MD LAB BLOOD ORDERABLES Final R esult [facility] [address] [place] [address], * Miscellaneous reference lab test (10/24/2024) us Provider Onbase LAB BLOOD ORDERABLES Final Re sult from Last 3 Months Insurance [facility] MEDIC[facility] Member Subscriber Plan / Payer (Ef fective 2016-Present) Name:Cecilio Rose Relation to Subscriber:Self Name:Cecilio Rose Payer ID:[id number] Group ID:[id number] Type:Not on file Address: [address] [place] [address] Care Teams Head Nurse Relationship Specialty Start Date End Date Andrea Ramos MD [address] [place] [id number] PCP - General Internal Medicine 01/23/12
--- OUTSIDE RECORDS SUMMARY | 2025-01-06 10:00 | XMS_ITS | Encounter Summary ---
Author Organization [employer] Address [address] [place] [address] Care Team Providers Care Taxonomist Name Role Phone Andrea Ramos MD Primary Care Provider Encounter Details Date Type Department Care Team (Late st Contact Info) Description 08/19/2024 7:06 AM EDT Hospital Encounter TH HISTORIC ENCOUNTERS [facility] CONVERSION ONLY Giselle Walton MD [address] [place] [address] Social History Tobacco Use Types Packs/Day Years [...] of left index finger trigger finger CPT 71746 PRIMARY SURGEON: Giselle Walton MD REVIEW MANAGER SURGEON: none REVIEW MANAGER(S): Adelaida Robertson (scrub nurse), Mj Conner (circulating [...] 11:30 AM EDT Office Visit Adult Medicine [address] [phone] Andrea Ramos MD [address] [place] [phone] 02/08/2025 10:00 AM EDT Ancillary Procedure [facility] [address] [facility] [address] [place] [phone] 02/22/2025 10:15 AM EDT Office Visit [facility] Hematology Oncology [address] [place] [phone] Kusum Bess MD [address] [place] [address] 03/10/2025 2:15 PM EDT Office Visit Endocrinology [address] [phone] María Welch PA [address] [place] [address] 10/31/2025 10:00 AM EST Office Visit Orthopedic Surgery - [place] [address] [phone] Ruslan Lyle, DPM [address] [address] documented as of this encounter Visit Diagnoses Not on filedocumented in this encounter Care Teams Taxonomist Relationship Specialty Start Date End Date Andrea Ramos MD [address] [place] [id number] PCP - General Internal Medicine 01/23/12 documented as of this encounter
--- OUTSIDE RECORDS SUMMARY | 2025-01-06 10:00 | XMS_ITS | Encounter Summary ---
Author Organization [facility] Address [address] [facility] [address] [place] [address] Phone Care Team Providers Care Supervisor [employer] Name Role Phone Andrea Ramos MD Primary Care Provider [phone] Encounter Details Date Type Department Care Team (Late st Contact Info) Description 05/11/2024 Documentation Only [facility] [address] [place] [address] [place] [address] [place] [address] Social History Tobacco Use Types Packs/Day Years Used Date Smoking Tobacco: Never Sex and Gender Information Value Date Recorded Sex Assigned at Not on file Legal Sex Male 4:33 PM EST Gender Identity Not on file Sexual Orientation Not on file documented as of this encounter Plan of Treatment Upcoming Encounters Date Type Department Care Team (Late st Contact Info) Description 05/17/2025 2:15 PM EDT Office Visit [facility] [address] [place] [address] German Simpson MD [address] [place] [address] [place] [phone] documented as of this encounter Visit Diagnoses Not on filedocumented in this encounter Care Teams Supervisor [employer] Relationship Specialty Start Date End Date Andrea Ramos MD PCP - General 09/20/19 documented as of this encounter
--- OUTSIDE RECORDS SUMMARY | 2025-01-06 10:00 | XMS_ITS | Clinical Summary ---
Author Organization [employer] [facility] Address [address] [place] [address] Care Team Providers Care Paper Winder Name Role Phone Andrea Ramos MD Primary Care Provider [phone] Medications Medication Sig Dispensed Refills Start Date End Date Status insulin lispro (HumaLOG) injection 100 units/mL Inject under the skin 3 (three) times a day before meals. 0 Active rosuvastatin (CRESTOR) tablet 10 mg Take 1 tablet (10 mg total) by mouth daily. 0 Active metoprolol succinate (TOPROL-XL) 24 hr tablet 100 mg Take by mouth daily. 0 Active doxazosin (CARDURA) 4 MG tablet Take 1 tablet (4 mg total) by mouth every night at bedtime. 0 Active apixaban (ELIQUIS) 5 MG TABS tablet Take by mouth every 12 (twelve) hours. 0 Active dapagliflozin (Farxiga) 10 MG tablet Take by mouth daily. 0 Active hydrALAZINE (APRESOLINE) 100 MG tablet Take 1 tablet (100 mg total) by mouth 2 (two) times a day. 0 Active jrqhawwm-ilemynztk-ijs amethamethasone (POLYDEX) 3.5-61977-3.1 OINT 0 Active insulin glargine (LANTUS) injection 100 units/mL Inject under the skin every night at bedtime. 0 Active NIFEdipine (PROCARDIA XL) 90 MG 24 hr tablet Take 1 tablet (90 mg total) by mouth daily. 0 Active nortriptyline (PAMELOR) 25 MG capsule Take 1 capsule (25 mg total) by mouth every night at bedtime. 0 Active spironolactone (ALDACTONE) tablet 50 mg Take 1 tablet (50 mg total) by mouth daily. 0 Active tamsulosin (FLOMAX) 0.4 MG CAPS Take 1 capsule (0.4 mg total) by mouth daily. 0 Active valsartan (DIOVAN) tablet 160 mg Take 1 tablet (160 mg total) by mouth daily. 0 Active Active Problems No known active problems Social History Tobacco Use Types Packs/Day Years Used Date Smoking Tobacco: Never Smokeless Tobacco: Never Alcohol Use Standard Drinks/Week Comments Not Currently 0 (1 standard drink = 0.6 oz pur e alcohol) Sex and Gender Information Value Date Recorded Sex Assigned at Not on file Gender Identity Not on file Sexual Orientation Not on file Job Start Date Occupation Industry Not on file Not on file Not on file Last Filed Vital Signs Vital Sign Reading Time Taken Comments Blood Pressure 121/67 02/15/2024 9:25 AM EDT Pulse 76 02/15/2024 9:25 AM EDT Temperature 36.1 ??C (97 ??F) 02/15/2024 9:25 AM EDT Respiratory Rate - - Oxygen Saturation 100% 02/15/2024 9:25 AM EDT Inhaled Oxygen Concentration - - Weight 70.8 kg (156 lb) 02/15/2024 9:25 AM EDT Height 165.1 cm (5' 5 ) 02/15/2024 9:25 AM EDT Body Mass Index 25.96 02/15/2024 9:25 AM EDT Plan of Treatment Health Maintenance Due Date Last Done Comments Hepatitis C Screening 1945 COVID-19 Vaccine (#1) 1945 Depression Screening 1959 Preventative Health Evaluation 1965 Shingrix-Zoster Vaccine (1 o f 2) 1997 Fall Risk Assessment 2012 DTap / Tdap / Td (2 - Td or Tdap) 05/14/2021 05/14/2011 RSV Adult > 60+ Yrs or (1 - 1-dose 75+ series) 2022 Influenza Vaccine (#1) 2024 09/24/2007 Pneumococcal Vaccine Completed 11/29/2021, 08/06/2012 Hepatitis B Vaccines Aged Out No long er eligible based on patient's age to complete this topic RSV Ped < 20 months Aged Out No longe r eligible based on patient's age to complete this topic Care Teams Paper Winder Relationship Specialty Start Date End Date Andrea Ramos MD PCP - General Internal Medicine 01/07/22
== END 2025-01-06 10:24 | disposition home or self-care (01) ==
PROVIDERS: PCP Internal Medicine; Visit Provider Psychiatry & Neurology Neurology
DX: G62.9 Polyneuropathy, unspecified (principal); G57.31 Lesion of lateral popliteal nerve, right lower limb
CPT/HCPCS: 99214

== ENCOUNTER → 2025-01-06 09:27 | Outpatient (BNVA) | payer MEDICARE, SELFPAY | PROVIDERS: PCP Internal Medicine; Visit Provider Psychiatry & Neurology Neurology | DX: G62.9 Polyneuropathy, unspecified (principal); M54.16 Radiculopathy, lumbar region; G57.31 Lesion of lateral popliteal nerve, right lower limb | CPT/HCPCS: 99212 ==

== ENCOUNTER → 2025-01-18 10:26 | Outpatient (BNV) | payer MEDICARE, SELFPAY | PROVIDERS: PCP Internal Medicine; Visit Provider Radiology Diagnostic Radiology | DX: S83.241A Other tear of medial meniscus, current injury, right knee, initial encounter (principal); S83.281A Other tear of lateral meniscus, current injury, right knee, initial encounter | CPT/HCPCS: 73721 ==

== ENCOUNTER 2025-01-18 10:27 | Outpatient (REF) | payer MEDICARE, SELFPAY ==
--- OUTSIDE RECORDS SUMMARY | 2025-01-18 12:21 | XMS_ITS | Clinical Summary ---
Author Organization 175 [facility] Address [address] [place] [address] Phone Care Team Providers Care Seals Engraver Name Role Phone Andrea Ramos MD Primary Care Provider [phone] Allergies No known active allergies Medications doxazosin (CARDURA) 4 mg tablet Take by [...] TWICE A DAY ^1R1,1R3 180 tablet 1 4 Active hydrALAZINE (APRESOLINE) 100 mg tablet TAKE 1 AND 1/2 TABLET BY MOUTH TWICE A DAY ^1HR1,1HR3 270 tablet 1 4 Active FreeStyle Lancets 28 gauge lancets 1 each by Other route 3 (three) times a day. 4 Active blood sugar diagnostic (FreeStyle Lite Strips) test strip Use to check BS 3 times a day 300 each 3 5 026 Active insulin lispro 100 unit/mL injection Inject 3 times a day with meals per sliding scale: 100-149: 8 units; 150-200: 10 units; 201-250: 11 units; 251-300: 12 units; 301-350:13 units; 351-400: 15 units, DINNER - 2 UNITS 45 mL 5 5 Active Farxiga 10 mg tablet TAKE ONE TABLET BY MOUTH EVERY DAY ^1R1 30 tablet 5 5 Active dapagliflozin propanediol (FARXIGA) 10 mg tablet Take 1 tablet (10 mg total) by mouth 1 (one) time each day. 025 Discontinued Active Problems Problem Noted Date Diagnosed Date [...] taking it. An EMG was performed at [place] and a lumbar spine MRI performed and [...] 11/29/2021 Nephrolithiasis 11/29/2021 Overview (11/06/2024): Follows with [facility] on annual basis. Renal cyst 11/29/2021 [...] Department Care Team Description 12/26/2024 Telephone Endocrinology [address] [phone] María Welch PA 12/02/2024 1:00 PM EST Office Visit [address] [phone] María Welch PA Type 2 diabetes mellitus with other specified complication, unspecified whether vermin exterminator insulin use ([facility]) (Primary Dx); Essential hypertension; Hyperlipidemia, unspecified hyperlipidemia type 11/04/2024 1:15 PM EST Office Visit [facility] [address] [place] [address] María Welch PA Type 2 diabetes mellitus with diabetic chronic kidney disease, unspecified CKD stage, unspecified whether long-term insulin use ([facility]) (Primary Dx); Essential hypertension; Hyperlipidemia, unspecified hyperlipidemia type 10/31/2024 9:00 AM EST Office Visit Orthopedic Surgery [place] [address] 175 [facility] [address] [place] [phone] Ruslan Lyle, DPM Metatarsalgia of both feet (Primary Dx); Corns and callosities; Type II diabetes mellitus with peripheral circulatory disorder (CMS/HCC); Diabetic mononeuropathy simplex ([facility]); Acquired hammer toe of right foot 10/24/2024 10:15 AM EST Office Visit Hematology Oncology [address] [place] [phone] Kusum Bess MD IgG monoclonal gammopathy (Primary Dx); Chronic renal insufficiency, stage 2 (mild) from Last 3 Months Surgical History Surgery Date Site/Laterality Comments LUMBAR LAMINECTOMY 2006 PROCEDURE: HISTORICAL LUMB LAMINECTOMY; COMMENT: Dr. Grimes, L4-5, L5-S1 decompression HAND SURGERY PROCEDURE: HISTORICAL HAND SURGERY; COMMENT: left 3trd trigger COLONOSCOPY 03/02/2014 PROCEDURE: HISTORICAL COLONOSCOPY; COMMENT: normal; would not repeat CATARACT EXTRACTION 2020 Bilateral PROCEDURE: HISTORICAL CATARACT REMOVAL OTHER SURGICAL HISTORY 2016 PROCEDURE: [place] RPLCMT AORTIC VALVE ANNULUS ENLGMENT NONC SINUS KNEE SURGERY 2016 Right PROCEDURE: HISTORICAL KNEE SURGERY SHOULDER SURGERY 1990 Right PROCEDURE: HISTORICAL SHOULDER SURGERY MECHANICAL AORTIC VALVE REPLACMENT AND MITRAL VALVE REPAIR N/A TRIGGER FINGER RELEASE 08/19/2024 Left TRIGGER FINGER RELEASE 09/30/2024 Right Medical History Medical History Date Comments HTN (hypertension) 02/18/2012 DX:HTN (hyper tension) DM type 2 (diabetes mellitus , type 2) (CMS/HCC) 02/18/2012 DX:DM type 2 (diabetes melli tus, type 2) ([facility]) Historical Medical DX 02/18/2012 DX:Hyperli pidemia LDL [...] 11:30 AM EDT Office Visit Adult Medicine [address] [phone] Andrea Ramos MD [address] [place] [address] 02/08/2025 10:00 AM EDT Ancillary Procedure [facility] - [address] [place] [address] 02/22/2025 10:15 AM EDT Office Visit Hematology Oncology [address] [place] [phone] Kusum Bess MD [address] [place] [address] 03/10/2025 2:15 PM EDT Office Visit [facility] [address] [place] [address] María Welch PA [address] [place] [address] 10/31/2025 10:00 AM EST Office Visit Orthopedic Surgery - [place] [address] [address] Ruslan Lyle DPM [address] [address] Health Maintenance Due Date Last Done Comments [...] mellitus with other specified complication, unspecified whether vermin exterminator insulin use (CMS/HCC) BASIC METABOLIC PANEL Routine 12/02/2024 1:40 PM EST Type 2 diabetes mellitus with other specified complication, unspecified whether long-term insulin use (CMS/HCC) LIPID PANEL WITH REFLEX TO DIRECT LDL Routine 12/02/2024 1:40 PM EST Type 2 diabetes mellitus with other specified complication, unspecified whether long-term insulin use (CMS/HCC) MICROALBUMIN CREATININE URINE RATIO Routine 12/02/2024 1:40 PM EST Type 2 diabetes mellitus with other specified complication, unspecified whether vermin exterminator insulin use (CMS/HCC) POC GLUCOSE Routine 12/02/2024 1:10 PM EST Type 2 diabetes mellitus with other specified complication, unspecified whether long-term insulin use (CMS/HCC) POC GLUCOSE Routine 11/04/2024 2:13 PM EST Type 2 diabetes mellitus with diabetic chronic kidney disease, unspecified CKD stage, unspecified whether long-term insulin use ([facility]) POC URINE AUTO W/O MICRO Routine 11/04/2024 1:55 PM EST Type 2 diabetes mellitus with diabetic chronic kidney disease, unspecified CKD stage, unspecified whether long-term insulin use ([facility]) POC GLUCOSE Routine 11/04/2024 1:54 PM EST Type 2 diabetes mellitus with diabetic chronic kidney disease, unspecified CKD stage, unspecified whether long-term insulin use ([facility]) CBC WITH AUTO DIFFERENTIAL Routine 10/24/2024 11:00 [...] to direct LDL (12/02/2024 1:40 PM EST) Cholesterol 122 0 - 200 mg/dL LAB CHEMISTRY METHOD 12/02/2024 10:46 PM EST [facility] Triglycerides 107 0 - 150 mg/dL LAB CHEMISTRY METHOD 12/02/2024 10:46 PM EST [facility] HDL 63 >=40 mg/dL LAB CHEMISTRY METHOD 12/02/2024 10:46 PM EST [facility] LDL Calculated 38 0 - 100 mg/dL LAB CHEMISTRY METHOD 12/02/2024 10:46 PM EST [facility] VLDL Cholesterol Hipolito 21.4 mg/dL LAB CHEMISTRY METHOD 12/02/2024 10:46 PM EST [facility] Non HDL Chol. (LDL+VLDL) 59 <145 mg/dL LAB CHEMISTRY METHOD 12/02/2024 10:46 PM EST [facility] Chol/HDL Ratio 1.9 0.0 - 4.4 LAB CHEMISTRY METHOD 12/02/2024 10:46 PM EST [facility] Blood Venous blood specimen / Unknown Venipuncture / Unknown 12/02/2024 1:40 PM EST 12/02/2024 1:40 PM EST us María PERRY LAB BLOOD ORDERABLES Final Result Performing Organization Address [facility]/ZIP Co de Phone Number [facility] [address] [place] [address], [place] [phone] * (ABNORMAL) Microalbumin creatinine urine ratio (12/02/2024 1:40 PM EST) Creatinine, Urine 114.0 mg/dL LAB CHEMISTRY METHOD 12/02/2024 11:25 PM [facility] Microalb, Ur 450.0(H) 0.0 - 29.0 mg/L LAB CHEMISTRY METHOD 12/02/2024 11:25 PM EST [facility] Microalb/Crea t Ratio 395(H) <30 mg/g creat LAB CHEMISTRY METHOD 12/02/2024 11:25 PM EST [facility] Urine Urine specimen from urethra / Unknown Non-blood Collection / Unknown 12/02/2024 1:40 PM EST 12/02/2024 1:40 PM EST us María PERRY LAB URINE ORDERABLES Final Result Performing Organization Address City/[facility]/ZIP Co de Phone Number [facility] [address] [place] [address], [place] [phone] * (ABNORMAL) Hemoglobin A1c (12/02/2024 1:40 PM EST) [facility] Hemoglobin A1C 8.1(H) <6.5 % LAB CHEMISTRY METHOD 12/02/2024 10:06 PM EST [facility] Mean Bld Glu Estim. 186 mg/dL LAB CHEMISTRY METHOD 12/02/2024 10:06 PM [facility] Blood Venous blood specimen / Unknown Venipuncture / Unknown 12/02/2024 1:40 PM EST 12/02/2024 1:40 PM EST María PERRY LAB BLOOD ORDERABLES Final Result [facility] [address] [place] [address], [place] [phone] * (ABNORMAL) Basic metabolic panel (12/02/2024 1:40 PM EST) [facility] Sodium 134 133 - 145 mmol/L LAB CHEMISTRY METHOD 12/02/2024 10:45 PM [facility] Potassium 4.1 3.5 - 5.5 mmol/L LAB CHEMISTRY METHOD 12/02/2024 10:45 PM [facility] Chloride 102 96 - 110 mmol/L LAB CHEMISTRY METHOD 12/02/2024 10:45 PM [facility] CO2 25 21 - 32 mmol/L LAB CHEMISTRY METHOD 12/02/2024 10:45 PM [facility] Anion Gap 7 3 - 11 LAB CHEMISTRY METHOD 12/02/2024 10:45 PM [facility] Glucose 234(H) 70 - 100 mg/dL LAB CHEMISTRY METHOD 12/02/2024 10:45 PM [facility] BUN 31(H) 5 - 25 mg/dL LAB CHEMISTRY METHOD 12/02/2024 10:45 PM EST [facility] Creatinine 1.75(H) 0.70 - 1.30 mg/dL LAB CHEMISTRY METHOD 12/02/2024 10:45 PM EST [facility] eGFR 40(L) >=60 mL/min/1. 73m2 LAB CHEMISTRY METHOD 12/02/2024 10:45 PM EST [facility] Comment:Calculation based on the??Chronic Kidney Disease Epidemiology Collaboration (CKD-EPI) equation refit??without adjustment for race. BUN/Creatinine Ratio 17.7 LAB CHEMISTRY METHOD 12/02/2024 10:45 PM [facility] Calcium 9.2 8.5 - 10.5 mg/dL LAB CHEMISTRY METHOD 12/02/2024 10:45 PM [facility] Blood Venous blood specimen / Unknown Venipuncture / Unknown 12/02/2024 1:40 PM EST 12/02/2024 1:40 PM EST María PERRY LAB BLOOD ORDERABLES Final Result [facility] [address] [place] [address], [place] [phone] * POC glucose manually resulted (12/02/2024 1:10 PM EST) Only the most recent of3 resultswithin the time period is included. Glucose POC 220 mg/dL Comment:non fasting Blood Capillary blood specimen / Unknown 12/02/2024 1:10 PM EST María PERRY POINT OF CARE TEST ENTER/ED IT ORDERABLES Final Result * (ABNORMAL) POC Urine Auto W/O Micro (11/04/2024 1:55 PM EST) Glucose UA POC 2+(A) Negative, Trace mg/dL Bilirubin UA POC 2+(A) Negative, Small Ketones UA POC Negative Negative, Trace Specific [place] UA POC 1.010 Blood UA POC Negative [...] K/mcL LAB HEMETOLOGY METHOD 10/24/2024 11:37 AM [facility] RBC 4.60 4.50 - 5.50 M/mcL LAB HEMETOLOGY METHOD 10/24/2024 11:37 AM [facility] Hemoglobin 12.7(L) 13.5 - 17.5 g/dL LAB HEMETOLOGY METHOD 10/24/2024 11:37 AM [facility] Hematocrit 39.2(L) 42.0 - 54.0 % LAB HEMETOLOGY METHOD 10/24/2024 11:37 AM [facility] MCV 85.2 79.0 - 98.0 FL LAB HEMETOLOGY METHOD 10/24/2024 11:37 AM [facility] MCH 27.6 27.0 - 32.0 pcg LAB HEMETOLOGY METHOD 10/24/2024 11:37 AM [facility] MCHC 32.4 32.0 - 37.0 g/dL LAB HEMETOLOGY METHOD 10/24/2024 11:37 AM [facility] RDW 13.5 11.0 - 15.0 % LAB HEMETOLOGY METHOD 10/24/2024 11:37 AM [facility] Platelets 282 130 - 400 K/mcL LAB HEMETOLOGY METHOD 10/24/2024 11:37 AM [facility] MPV 11.5(H) 7.0 - 11.0 FL LAB HEMETOLOGY METHOD 10/24/2024 11:37 AM [facility] NRBC 0.0 <1.0 % LAB HEMETOLOGY METHOD 10/24/2024 11:37 AM [facility] NRBC Absolute 0.00 <0.10 K/mcL LAB HEMETOLOGY METHOD 10/24/2024 11:37 AM [facility] Neutrophils Relative 66.8 % LAB HEMETOLOGY METHOD 10/24/2024 11:37 AM [facility] Lymphocytes Relative 19.2 % LAB HEMETOLOGY METHOD 10/24/2024 11:37 AM [facility] Monocytes Relative 11.0 % LAB HEMETOLOGY METHOD 10/24/2024 11:37 AM [facility] Eosinophils Relative 2.3 % LAB HEMETOLOGY METHOD 10/24/2024 11:37 AM [facility] Basophils Relative 0.4 % LAB HEMETOLOGY METHOD 10/24/2024 11:37 AM [facility] Immature Granulocytes Relative 0.3 % LAB HEMETOLOGY METHOD 10/24/2024 11:37 AM [facility] Neutrophils Absolute 6.40 1.50 - 7.00 K/mcL LAB HEMETOLOGY METHOD 10/24/2024 11:37 AM [facility] Lymphocytes Absolute 1.84 1.00 - 5.00 K/mcL LAB HEMETOLOGY METHOD 10/24/2024 11:37 AM [facility] Monocytes Absolute 1.05(H) 0.20 - 1.00 K/mcL LAB HEMETOLOGY METHOD 10/24/2024 11:37 AM [facility] Eosinophils Absolute 0.22 0.00 - 0.50 K/mcL LAB HEMETOLOGY METHOD 10/24/2024 11:37 AM EST [facility] Basophils Absolute 0.04 0.00 - 0.20 K/[facility] LAB HEMETOLOGY METHOD 10/24/2024 11:37 AM EST [facility] Immature Granulocytes Absolute 0.03 0.00 - 0.03 K/[facility] LAB HEMETOLOGY METHOD 10/24/2024 11:37 AM EST [facility] Blood Venous blood specimen / Unknown Venipuncture / Unknown 10/24/2024 11:00 AM EST 10/24/2024 11:21 AM EST us Kusum Bess MD LAB BLOOD ORDERABLES Final R esult Performing Organization Address City/[facility]/ZIP Co de Phone Number [facility] [address] [place] [address], [place] [phone] * (ABNORMAL) Immunoglobulins IgG, IgA, IgM (10/24/2024 11:00 AM EST) Total IgG 2,450(H) 549 - 1,584 mg/dL LAB CHEMISTRY METHOD 10/24/2024 1:00 PM EST [facility] IgA 85 61 - 348 mg/dL LAB CHEMISTRY METHOD 10/24/2024 1:00 PM EST [facility] IgM 20(L) 23 - 259 mg/dL LAB CHEMISTRY METHOD 10/24/2024 1:00 PM EST [facility] Blood Venous blood specimen / Unknown Venipuncture / Unknown 10/24/2024 11:00 AM EST 10/24/2024 11:24 AM EST us Kusum Bess MD LAB BLOOD ORDERABLES Final R esult Performing Organization Address City/[facility]/ZIP Co de Phone Number [facility] [address] [place] [address], [place] [phone] * (ABNORMAL) Comprehensive metabolic panel (10/24/2024 11:00 AM EST) Sodium 138 133 - 145 mmol/L LAB CHEMISTRY METHOD 10/24/2024 12:33 PM [facility] Potassium 3.9 3.5 - 5.5 mmol/L LAB CHEMISTRY METHOD 10/24/2024 12:33 PM [facility] Chloride 105 96 - 110 mmol/L LAB CHEMISTRY METHOD 10/24/2024 12:33 PM [facility] CO2 26 21 - 32 mmol/L LAB CHEMISTRY METHOD 10/24/2024 12:33 PM [facility] Anion Gap 7 3 - 11 LAB CHEMISTRY METHOD 10/24/2024 12:33 PM [facility] Glucose 166(H) 70 - 100 mg/dL LAB CHEMISTRY METHOD 10/24/2024 12:33 PM [facility] BUN 24 5 - 25 mg/dL LAB CHEMISTRY METHOD 10/24/2024 12:33 PM [facility] Creatinine 1.55(H) 0.70 - 1.30 mg/dL LAB CHEMISTRY METHOD 10/24/2024 12:33 PM [facility] eGFR 46(L) >=60 mL/min/1. 73m2 LAB CHEMISTRY METHOD 10/24/2024 12:33 PM [facility] Comment:Calculation based on the??Chronic Kidney Disease Epidemiology Collaboration (CKD-EPI) equation refit??without adjustment for race. BUN/Creatinine Ratio 15.5 LAB CHEMISTRY METHOD 10/24/2024 12:33 PM [facility] Calcium 10.0 8.5 - 10.5 mg/dL LAB CHEMISTRY METHOD 10/24/2024 12:33 PM [facility] AST (SGOT) 19 10 - 42 unit/L LAB CHEMISTRY METHOD 10/24/2024 12:33 PM [facility] ALT (SGPT) 19 10 - 60 unit/L LAB CHEMISTRY METHOD 10/24/2024 12:33 PM EST [facility] Alkaline Phosphatase 67 42 - 121 unit/L LAB CHEMISTRY METHOD 10/24/2024 12:33 PM [facility] Total Protein 8.2(H) 6.0 - 8.0 g/dL LAB CHEMISTRY METHOD 10/24/2024 12:33 PM [facility] Albumin 3.8 3.2 - 5.0 g/dL LAB CHEMISTRY METHOD 10/24/2024 12:33 PM [facility] Total Bilirubin 0.8 0.0 - 1.4 mg/dL LAB CHEMISTRY METHOD 10/24/2024 12:33 PM [facility] Blood Venous blood specimen / Unknown Venipuncture / Unknown 10/24/2024 11:00 AM EST 10/24/2024 11:24 AM EST Kusum Bess MD LAB BLOOD ORDERABLES Final R esult [facility] [address] [place] [address], * Miscellaneous reference lab test (10/24/2024) us Provider Onbase LAB BLOOD ORDERABLES Final Re sult from Last 3 Months Insurance [facility] MEDICARE Member Subscriber Plan / Payer (Ef fective 2016-Present) Name:Cecilio Rose Relation to Subscriber:Self Name:Cecilio Rose Payer ID:[id number] Group ID:[id number] Type:Not on file Address: [facility] [place] [address] Care Teams Seals Engraver Relationship Specialty Start Date End Date Andrea Ramos MD [address] [place] [address] PCP - General Internal Medicine 01/23/12
--- OUTSIDE RECORDS SUMMARY | 2025-01-18 12:21 | XMS_ITS | Clinical Summary ---
Author Organization [facility], Address [address] [place] [address] [place] [address] Phone Care Team Providers Care Sql Programmer Analyst Name Role Phone Andrea Ramos MD Primary Care Provider [phone] Allergies No known active allergies Medications apixaban [...] Nephrolithiasis 11/29/2021 10/06/2023 Overview (10/06/2023): Follows with [facility]rology on annual basis. Essential hypertension 02/22/2020 Microalbuminuria 02/22/2020 Type 2 diabetes mellitus 02/22/2020 Encounters Date Type Department Care Team Description 10/26/2024 3:45 PM EST Office Visit [facility], [address] [place] [address] German Simpson MD Stage 3a chronic [...] Visit [facility], [address] [phone] German Simpson MD [address] [place] [address] Health Maintenance Due Date Last [...] patient's age to complete this topic Insurance [facility] ONE CARE DUAL SNP ([id number]) [place] [id number] Care Teams Sql Programmer Analyst Relationship Specialty Start Date End Date Andrea Ramos MD PCP - General 09/20/19
--- OUTSIDE RECORDS SUMMARY | 2025-01-18 12:21 | XMS_ITS | Clinical Summary ---
Author Organization [facility] Address [address] [place] [address] Care Team Providers Care Box Cutter Name Role Phone Andrea Ramos MD Primary Care Provider [phone] Medications Medication Sig Dispensed Refills Start Date [...] 2 (two) times a day. 0 Active sgpfqpyu-oajtxksqw-gho amethamethasone (POLYDEX) 3.5-40105-5.1 OINT 0 Active insulin glargine (LANTUS) injection [...] age to complete this topic Care Teams Box Cutter Relationship Specialty Start Date End Date Andrea Ramos MD PCP - General Internal Medicine 01/07/22
--- OUTSIDE RECORDS SUMMARY | 2025-01-18 12:21 | XMS_ITS | Data Portability ---
Author Organization [place] - Saulo Meyer [facility], [employer] Address [address] [place] [address] Assessment Encounter Date Assessment Date Assessment LastModified [...] noted, no gross instability. Range of motion to-115? ? ?. Calf is soft. Impression: Right knee arthritis [...] he have continued difficulty about the knee. Musicnotes speech recognition fruit picker software was used to create portions of [...] 15 mg tablet 2023 Favio quentin valentino [facility]acy #[id number], [address] [place], [address], 4 14:58:27 Patient TargetsNo targets recorded. Patient [...] Organization Details Recorded Time No complaint s [id number] Active Status: 'I'; Not Available [facility] 4 09:11:58 Pain of left knee joint 575974120546 107 Active 2023 Adelaida Howard PA-C [address], [place], [address] , [facility] 4 12:38:45 Pain of right knee joint 187246704636 100 Active 2023 Adelaida Howard PA-C [address], [place], [address] , [facility] 4 12:38:54 Diabetes mellitus 18878127 Active 2023 TEE ROBERTS [facility] 4 12:21:55 Essential hypertens ion 54564777 Active 2023 SANDRA pearson [facility] 4 12:18:26 Coronary arteriosc lerosis 26085970 Active 2023 ZAMZAM pearson [place] - [facility] 12:18:47 Problem Notes None [...] 2nd Gen Pen Needle 32 gauge x 5/ INJECT INSULIN 4 TIMES A DAY active [...] Available Not Available Not Available Dexcom G7 Foundry Worker General USE DIRECTED active Not Available Not Available No t Available Dexcom G7 Sensor device APPLY SENSOR TOPICALLY AND CHANGE EVERY 10 DAYS active Not Available Not Available No t Available Vitals Date Recorded Body height Body mass index (BMI) Body weight Provider Name and Address Organization Details Last Updated DateTime 03/23/2024 165.1 cm 29.3 kg/m2 75268.26 g Jae Gomez PA-C [address] [facility] [address], [place], [address], [facility] 03/23/2024 13:57:09 Date Recorded Body height Body mass index (BMI) Body weight Provider Name and Address Organization Details Last Updated DateTime 08/24/2024 165.1 cm 29.3 kg/m2 86327.26 g IVAN MCPHERSON [facility] 08/24/2024 10:36:17 Date Recorded Body height Body mass index (BMI) Body weight Provider Name and Address Organization Details Last Updated DateTime 10/11/2024 165.1 cm 29.3 kg/m2 40272.26 g SUZIE MCMAHON [place] [facility] 10/11/2024 13:12:15 Social History None recorded. Functional Status None recorded. Mental Status None recorded. Family History Nothing Reported. Medical History Condition Response Allergies/Hayfever N Coronary Artery Disease N Anxiety/Depression N Breathing or lung disorders N Emphysema N Nerve Disorders N Thyroid Problems N COPD N Pacemaker N Anemia N Kidney/Bladder Problems N Vascular Disease N Heart Trouble Y Heart Attack ([place]) N Gastrointestinal Disease N Cholesterol N Diabetes Y Autoimmune disease N Bleeding Disorder N Inflammatory Joint disease N Orthotics N Arthritis N Seizures/Epilepsy N [...] Diagnosis/Indication Diagnosis SNOMED-CT Code Diagnosis ICD10 Code Diagnosis Note [id number] JOHAN Berry [address] [place] [address] 03/23/2024 13:22:45 04/15/2024 12:56:02 Postoperative care 881266805 Z48.89 Tear of me dial meniscus of knee 959901940 S83.241D [id number] MD Merry Rosen [address] [place] [address] 08/24/2024 09:42:00 09/20/2024 08:31:21 Pain of right knee joint 2519756879 38552 M25.415 [id number] JOHAN Piedra [address] [place] [address] 10/11/2024 12:58:02 10/27/2024 16:00:49 Osteoarthritis of right knee joint 9531945073 83529 M17.11 Health Concerns Section Related Observation LastModified by Organization Detai ls LastModified Time None Recorded Concern Status LastModified by Organization Details LastModified Time None Recorded Advance Directives Directive None Recorded Payers Encounter Date Sequence Insurance Name Policy Number Policy Ramos Covered Member ID Ramos Member ID Guarantor Name 08/24/2024 1 [facility] - DOS ON OR AFTER 2023 - ONE CARE (MEDICARE REPLACEMENT/ADV ANTAGE - HMO) Cecilio [id number] 10/11/2024 1 [facility] - DOS ON OR AFTER 2023 - ONE CARE (MEDICARE REPLACEMENT/ADV ANTAGE - HMO) [id number] [address] Notes Date Note Type Note [...] the future as needed. Jae Gomez PA-C [address] [facility] [address], [place], [address], [facility] - [place] [facility] 03/23/2024 14:22:51 08/24/2024 text/html HPI: Patient is [...] total knee arthroplasty techniques. Johnathon Birmingham MD [address] [place], [place] [address], [place], [address], [facility] - [place] [facility] 08/24/2024 10:51:38
--- OUTSIDE RECORDS SUMMARY | 2025-01-18 12:21 | XMS_ITS | Encounter Summary ---
Author Organization [facility] Address [address] [facility] [address] [place] [address] Phone Care Team Providers Care Over Short And Damage Clerk Name Role Phone Andrea Ramos MD Primary Care Provider [phone] Encounter Details Date Type Department Care Team (Late st Contact Info) Description 05/11/2024 Documentation Only [facility] [address] [place] [address] Nataly HernandezREEDER, [place] [address] [place] [address] Social History Tobacco Use Types [...] Visit [facility] [address] [place] [address] German Simpson MD [address] [place] [address] [place] [phone] documented as of this encounter Visit Diagnoses Not on filedocumented in this encounter Care Teams Over Short And Damage Clerk Relationship Specialty Start Date End Date Andrea Ramos MD PCP - General 09/20/19 documented as of this encounter
--- OUTSIDE RECORDS SUMMARY | 2025-01-18 12:21 | XMS_ITS | Encounter Summary ---
Author Organization [employer] Address [address] [place] [address] Care Team Providers Care Power Shovel Mechanic Name Role Phone Andrea Ramos MD Primary Care Provider [phone] Encounter Details Date Type Department Care Team (Late st Contact Info) Description 12/26/2024 Telephone Endocrinology - [place] [address] [place] [phone] María Welch PA [address] [place] [address] Social History Tobacco Use Types Packs/Day Years [...] as of this encounter Progress Notes * Mikhail Johnson - 01/17/2025 10:22 AM EST Patient stopped in to ask about the status of note needed for diabetic shoes. [facility] will not make an appointment for shoes until they get office notes and a letter from Endo stating the need for diabetic shoes. Please fax to: [phone] and notify patient when this hasbeen done. * Saba Suggs MA - 12/27/2024 10:[address] Eden, Will you review this message and provide script for provider out of the office? * Karen Lovell - 12/26/2024 2:19 PM EST Patient is calling stating his Appeals And Generalist Clerk Dr Lyle would like María Welch to fax an order for diabetic shoes to [facility] in [address] Attention Alondra Alarcon. Any question call [phone] documented in this encounter Plan of Treatment Upcoming Encounters Date Type Department Care Team (Late st Contact Info) Description 01/30/2025 11:30 AM EDT Office Visit Adult Medicine [facility] - [address] [phone] Andrea Ramos MD [address] [place] [address] 02/08/2025 10:00 AM EDT Ancillary Procedure [facility] - [facility] [address] [facility] [place] [address] [place] [phone] 02/22/2025 10:15 AM EDT Office Visit [facility] Hematology Oncology [address] [place] [phone] Kusum Bess MD [address] [place] [address] 03/10/2025 2:15 PM EDT Office Visit Endocrinology [address] [phone] María Welch PA [address] [place] [address] 10/31/2025 10:00 AM EST Office Visit Orthopedic Surgery - [place] [address] [phone] Ruslan Lyle, DPM [address] [address] documented as of this encounter Visit Diagnoses Not on filedocumented in this encounter Care Teams Power Shovel Mechanic Relationship Specialty Start Date End Date Andrea Ramos MD [address] [place] [id number] PCP - General Internal Medicine 01/23/12 documented as of this encounter
--- OUTSIDE RECORDS SUMMARY | 2025-01-18 12:21 | XMS_ITS | Encounter Summary ---
Author Organization [employer] Address [address] [place] [address] Care Team Providers Care National Account Executive Name Role Phone Andrea Ramos MD Primary Care Provider [phone] Encounter Details Date Type Department Care Team (Late st Contact Info) Description 08/19/2024 7:06 AM EDT Hospital Encounter TH HISTORIC ENCOUNTERS [facility]AST[facility] CONVERSION ONLY Giselle Walton MD [address] [place] [place] [address] Social History Tobacco Use Types Packs/Day Years [...] of left index finger trigger finger CPT 50873 PRIMARY SURGEON: Giselle Walton MD NEON TECHNICIAN SURGEON: none NEON TECHNICIAN(S): Adelaida Robertson (scrub nurse), Mj Conner (circulating [...] cm diagonal incision directly over the A1 eugenoi of the left index finger, dissecting down [...] 11:30 AM EDT Office Visit Adult Medicine [address] [phone] Andrea Ramos MD [address] [place] [address] 02/08/2025 10:00 AM EDT Ancillary Procedure [facility] - [facility] [address] [facility] [place] [address] [place] [phone] 02/22/2025 10:15 AM EDT Office Visit [facility] Hematology Oncology [address] [place] [phone] Kusum Bess MD [address] [place] [address] 03/10/2025 2:15 PM EDT Office Visit Endocrinology [address] [phone] María Welch PA [address] [place] [address] 10/31/2025 10:00 AM EST Office Visit Orthopedic Surgery - [place] [address] [phone] Ruslan Lyle, DPM [address] [address] documented as of this encounter Visit Diagnoses Not on filedocumented in this encounter Care Teams National Account Executive Relationship Specialty Start Date End Date Andrea Ramos MD [address] [place] [phone] PCP - General Internal Medicine 01/23/12 documented as of this encounter
== END 2025-01-18 10:28 | disposition home or self-care (01) ==
LOC: HO.MRI 10:27
PROVIDERS: PCP Internal Medicine; Visit Provider Psychiatry & Neurology Neurology
DX: G57.31 Lesion of lateral popliteal nerve, right lower limb (principal); R20.0 Anesthesia of skin; M25.561 Pain in right knee
CPT/HCPCS: 73721

== ENCOUNTER 2025-02-10 10:55 | Outpatient (AMB) | payer MEDICARE, SELFPAY ==
--- NOTE | 2025-02-10 11:24 | HO.SPINEOV ---
Intake Visit Reasons: 3 months f/up Intake Note: Mr. Lane is here today for his 3 month F/u. Chief Technician Required: No Allergies No Known Allergies [No Known Allergies*] Allergy (Verified 02/10/25 11:29) Assessment & Plan Assessment & Plan (1) Lumbar radiculopathy, chronic: Code(s): M54.16 - Radiculopathy, lumbar region Category: Medical Plan Mr Lane came in for his routine follow-up today. We have been following him for a right anterior thigh pain that goes down into his knee in the setting of right L4 foraminal stenosis and previous L4-5 and L5-S1 decompression done many years ago by Dr. Grimes. We originally saw him because he had a knee surgery last year done at [facility] and subsequent follow-ups at their office he was told that his knee was fine. We had been considering spinal fusion L4-5 to decompress the L4-5 foramen indirectly with interbody cage and pedicle screws, but he has been dealing with social issues with caring for his that if limited his ability to undergo surgeries. He saw Dr. ford few weeks back, and she ordered a right knee MRI at [place] and this showed more meniscal tears. He came back today to discuss this. I printed him a copy of the report, he is very frustrated that he was told his previous knee surgeries all went well but he continues to have these tears. I still think there is a component of lumbar radiculopathy, but he would like a 2nd opinion because the team at [facility] just seems to give him the run around. They did try injections at 1 point postoperatively and those did not do anything either. I will have him see to see if we can put these in perspective and if they are felt not to be anything meaningful, then we can focus our attention back on the lumbar spine. I would like to see him back after he sees . Total amount of time spent in this visit was 20 minutes in discussion of symptoms, knee MRI imaging results and subsequent plan of care Fortino Richardson MD,PhD [facility] Orders: Referrals Orthopedics Referral M54.16 - Radiculopathy, lumbar region Coding Level of Care Code Est Pt Level 3 (00777) Diagnoses Lumbar radiculopathy, chronic M54.16
== END 2025-02-10 12:01 | disposition home or self-care (01) ==
LOC: HO.HNS 10:56
PROVIDERS: PCP Internal Medicine; Visit Provider Physician Assistant
DX: M54.16 Radiculopathy, lumbar region (principal)
CPT/HCPCS: 99213

== ENCOUNTER → 2025-02-10 10:55 | Outpatient (BNVA) | payer OTHER, SELFPAY | PROVIDERS: PCP Internal Medicine; Visit Provider Physician Assistant | DX: M54.16 Radiculopathy, lumbar region (principal) | CPT/HCPCS: 99212 ==

== ENCOUNTER 2025-03-27 13:36 | Outpatient (AMB) | payer OTHER, SELFPAY ==
[2025-03-27 13:40] VITALS: BP 132/82; PULSE 73; O2SAT 98; BMI 27.3
--- NOTE | 2025-03-27 13:40 | A.OFFVIS_ITS ---
Vital Signs 03/27/25 13:40 Height 5 ft 5 in Weight 164 lb 4 oz BMI 27.3 BP 132/82 Blood Pressure Location Rt brachial Position Sitting Pulse 73 Pulse Source Pulse Oximeter Pulse Oximetry (%) 98 Oxygen Delivery Method Room Air Intake Visit Reasons: follow up Intake Note: Patient presents for follow up MRI 01/23/25 Allergies No Known Allergies [No Known Allergies*] Allergy (Verified 03/27/25 13:42) HPI Comments Details: 79 y/o male patient presents for follow up of radiculopathy and neuropathy ( likely diabetic) EMG 2023 showed right common Peroneal neuropathy.- MRI right knee shows meniscusl tear and ACL strain Patient had knee surgery in February 2024 . He still has intermittent numbness in right leg radiating down from knee. Reviewed EMG from 2021- showed multilevel Right radiculopathy ( mid and lower level)and axonal polyneuropathy. ? His back pain is manageable. he had back surgery in 2006 and has been stable since then.No trouble with urinary urgency or gait. ? 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 Lumbar radiculopathy, chronic COVID-19 vaccine administered Arthritis Diabetes Aortic valvular disease HTN (hypertension) Surgical History Hx of left cataract extraction H/O colonoscopy Hx of shoulder surgery Hx of lumbar discectomy Hx of aortic valve replacement Social History Household Members: Spouse Alcohol intake: former Patient Tobacco Use Status: Former Tobacco user Physical Exam Vital Signs: Last Vital Signs Pulse 73 03/27/25 13:40 BP 132/82 03/27/25 13:40 Pulse Ox 98 03/27/25 13:40 Oxygen Delivery Method Room Air 03/27/25 13:40 BMI result Body Mass Index 27.3 Const General: cooperative and no acute distress Nutritional Appearance: overweight Orientation/consciousness: patient oriented x3 Limitations: no limitations Neck Neck: Yes full ROM and Yes supple Resp Effort & Inspection: normal respiratory effort and able to speak in complete sentences Neuro Other: gait - antalgic , limps on his right knee General: patient oriented x3, moves all extremities, no focal motor deficits and CN's II-XI intact bilaterally Cognition (Neuro): normal cognition Motor exam (neuro): 5/5 motor strength present throughout and Normal motor muscle tone present throughout Deep tendon reflexes (DTR's): Right triceps reflex intensity grade: 2+, Left triceps reflex intensity grade: 2+, Rt Biceps (C5, C6): 2+, Left biceps reflex intensity grade: 2+, Right brachioradialis reflex intensity grade: 2+, Left brachioradialis reflex intensity grade: 2+, Right patellar reflex intensity grade: 2+ and Left patellar reflex intensity grade: 2+ Psych Appearance: grossly normal Mental Status: mental status grossly normal Speech and movement: Normal speech and movement present Assessment & Plan Assessment & Plan (1) Axonal polyneuropathy: Comment: diabetic Code(s): G62.9 - Polyneuropathy, unspecified Category: Medical (2) Lumbar radiculopathy, chronic: Code(s): M54.16 - Radiculopathy, lumbar region Category: Medical (3) 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
--- OUTSIDE RECORDS SUMMARY | 2025-03-27 13:56 | XMS_ITS | Data Portability ---
Author Organization [place] - [facility], Allergy Address [address] [address] Care Team Providers Care Hand Ironer Name Role Phone RENETTA BYRNE Primary Care Provider Assessment Encounter Date Assessment Date Assessment LastModified by Organization Details LastModified Time 03/23/2025 03/23/2025 Patient's audiogram shows bilateral severe sensorineural hearing loss with poor speech discrimination. There is enough hearing loss to affect day-to-day hearing performance. We discussed in detail the pros and cons of amplification (hearing aids). Patient would like to learn more about this option so I have provided a copy of the audiogram, a list of [facility] hearing aid providers, and medical clearance for amplification so the patient can pursue this at their convenience. Patient is medically cleared for amplification bilaterally. [email or web address] Not available 03/23/2025 10:48:17 Plan of Treatment Reminders Order Date Submit [...] Abnormal Flag Note LastModifiedBy Organization Detail LastModifiedTime 03/23/20 25 audio gram No observ ation record ed. BARCODE Not Available 2024 14:11:32 Result Notes None recorded. 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 Active 2022 NARENDRA KEANE MD [address],[place] [address], [place], [place], [address] , [place] - [facility] 5 16:15:10 History of aortic valve replaceme nt 11347570569 00 Active 2013 NARENDRA KEANE MD [address],[place] [address], [place], [place], [address] , [place] - [facility] 5 16:15:10 Sciatica 50405037 Active 2021 NARENDRA KEANE MD [address] [facility] [place],[facility] [facility], [place], [place], [address] , [place] - [facility] 5 16:15:10 Osteoarth ritis of knee 708666918 Active 2011 NARENDRA KEANE MD [address] [facility] [place] [address], [place], [place], [address] , [place] - [facility] 5 16:15:10 Transient cerebral ischemia 365154738 Active 2021 NARENDRA KEANE MD [address] [place], [place] [address]on [place] [facility], [place], [place], [address] , [place] - [facility] 5 16:15:10 Benign prostatic hyperplas ia 735605178 Active 2021 NARENDRA KEANE MD [address] [facility] [place] [facility], [place], [place], [address] , [place] - [facility] 5 16:15:10 Microalbu minuria 897071864 Active 2019 NARENDRA KEANE MD [address] [facility] [place] [facility], [place], [address] , [place] - [facility] 5 16:15:10 Renal disorder due to type 2 diabetes mellitus 484956489 Active 2013 NARENDRA KEANE MD [address] [facility] [place] [address], [place], [address] , [facility] - [facility] 5 16:15:10 Type 2 diabetes mellitus 83713377 Active 2019 NARENDRA KEANE MD [address] [facility] [place] [address], [place], [address] , [facility] - [facility] 5 16:15:10 Chronic diastolic heart failure 337081879 Active 2021 NARENDRA KEANE MD [address] [place] [address],[place] [address], [place], [address] , [place] - [facility] 5 16:15:10 Mitral valve regurgita tion 64636276 Active 2023 NARENDRA KEANE MD [address] [place] [address],[place] [address], [place], [address] , [place] - [facility] 16:15:10 Atrial flutter 7775946 Active 2015 NARENDRA KEANE MD [address] [place] [address],[place] [address], [place], [place], [address] , [place] - [facility] 16:15:10 Coronary arteriosc lerosis 54700520 Active 2023 NARENDRA KEANE MD [address] [place] [address],[place] [address], [place], [place], [address] , [facility] - [facility] 16:15:10 Hyperlipi demia 72086643 Active 2023 NARENDRA KEANE MD [address] [place] [address],[place] [address], [place], [address] , [facility] - [facility] 5 16:15:10 Essential hypertens ion 91705039 Active 2011 NARENDRA KEANE MD [address] [place] [address],[place] [address], [place], [address] , [facility] - [facility] 5 16:15:10 Cyst of kidney 488004299 Active 2021 NARENDRA KEANE MD [address] [place] [address],[place] [address], [place], [address] , [facility] - [facility] 5 16:15:10 Chronic renal insuffici ency 686133614 Active 2023 NARENDRA KEANE MD [address] [facility],[place] [address], [place], [address] , [place] - [facility] 16:15:10 Diabetes mellitus 89874930 Active 2023 NARENDRA KEANE MD [address] [facility],[place] [address], [place], [address] , [place] - [facility] 5 16:15:10 Spinal stenosis 11006646 Active 2021 NARENDRA KAENE MD [address] [facility],[place] [address], [place], [address] , [place] - [facility] 16:15:10 Heart murmur 57717473 Active 2023 NARENDRA KEANE MD [address] [place] [address],[place] [address], [place], [address] , [facility] - [facility] 5 16:15:10 Kidney stone 58012656 Active 2021 NARENDRA KEANE MD [address] [facility],[place] [address], [place], [address] , [facility] - [facility] 16:15:10 Sensorine ural hearing loss of bilateral ears 762759281 Active 2024 KEVIN GARCIA [address] [facility],[place] [address], [place], [address] , [facility] - [facility] 10:18:01 Problem Notes None recorded. Procedures Surgical History Date Name Laterality Status Provider Name and Address Organization Details Recorded Time 03/23/2025 Comp Audio with Tymps - 39223 & 95397 completed KEVIN GARCIA [address] [facility] [place] [address], [place], [address], [place] - [facility] 03/23/2025 10:17:54 Imaging Results Imaging Date Name Status LastModified by [facility] Details LastModified Time 03/23/2025 audiogram completed BARCODE Information no t available 03/23/2025 14:11:32 Procedure Notes None recorded. Medical Equipment None Reported. Allergies Allergen ID Allergen Name Allergen Category Reaction Reaction Severity Criticality Documentation Date Start Date Code Code System Note Provider Name and Address Organization Details Recorded Time 084703 No known allergy (situatio n) Not available Not available Not available Not available 03/21/2025 65183 [id number] SNOMED NARENDRA KEANE MD [address] [place] [address], [address] [facility] 16:14:59 Medications Name Sig Start Date Stop Date Status Note LastModified by Organization Details LastModified Time azithromy marla 250 mg tablet TAKE 2 TABLETS BY MOUTH ONCE FOR 1 DOSE. ONE HOUR PRIOR TO DENTAL CLEANING active Not Available Not Available No t Available ibuprofen 800 mg tablet PLEASE SEE ATTACHED FOR DETAILED DIRECTIO NS active Not Available Not Available No t Available nifedipin e ER 90 mg tablet,ex tended release TOME GEOVANY TABLETA TODOS LOS D active Not Available Not Available No t Available metoprolo l tartrate 100 mg tablet 06/12 completed Medicati on ID: [id number] rand Name: metoprol ol tartrate Send Method: E-Prescr ibed Sub s Allowed: subs OK Medic ationGen ericName : metoprol ol tartrate Not Available Not Available Not Available meloxicam 15 mg tablet TAKE 1 TABLET EVERY DAY BY ORAL ROUTE AFTER MEAL(S). active Not Available Not Available No t Available metoprolo l succinate ER 100 mg tablet,ex tended release 24 hr 100 mg by oral route. active Not Available Not Available No t Available Lantus U-100 Insulin 100 unit/mL subcutane ous solution 32 units by sub-q route. active Not Available Not Available No t Available ciproflox acin 500 mg tablet TAKE 1 TAB 1 HR BEFORE PROCEDUR E & 1 TAB 10 HRS AFTER active Not Available Not Available No t Available acetamino phen 500 mg tablet PLEASE SEE ATTACHED FOR DETAILED DIRECTIO NS active Not Available Not Available No t Available tamsulosi n 0.4 mg capsule 0.4 mg by oral route. 02/06 completed Not Available Not Available Not Available nifedipin e ER 90 mg tablet,ex tended release 24 hr 90 mg by oral route. 01/30 completed Not Available Not Available Not Available amlodipin e 10 mg tablet 06/12 completed Medicati on ID: [id number] B rand Name: amlodipi ne Send Method: E-Prescr ibed Sub s Allowed: subs OK Medic ationGen ericName : amlodipi ne Not Available Not Available Not Available hydralazi ne 100 mg tablet 2023 active Not Available Not Available Not Avai lable metformin 1,000 mg tablet active Medicati on ID: [id number] B rand Name: metformi n Send Method: E-Prescr ibed Sub s Allowed: subs OK Medic ationGen ericName : metformi n Not Available Not Available Not Available glucose 4 gram chewable tablet CHEW 4 TABLETS (16 G TOTAL) IF NEEDED FOR LOW BLOOD SUGAR. active Not Available Not Available No t Available gabapenti n 300 mg capsule TOME 1 C PSULA POR V A ORAL TODOS LOS D AL ACOSTARS E active Not Available Not Available No t Available doxazosin 4 mg tablet 01/30 completed Not Available Not Available Not Available insulin lispro (U-100) 100 unit/mL subcutane ous solution 2024 active Not Available Not Available Not Avai lable spironola ctone 50 mg tablet active Medicati on ID: [id number] B rand Name: spironol actone S end Method: E-Prescr ibed Sub s Allowed: subs OK Medic ationGen ericName : spironol actone Not Available Not Available Not Available oxycodone 5 mg tablet TAKE 1-2 TABLETS EVERY 6 HOURS NEEDED FOR 3 DAYS active Not Available Not Available No t Available valsartan 160 mg tablet 160 mg by oral route. 01/30 completed Not Available Not Available Not Available rosuvasta tin 10 mg tablet 10 mg by oral route. 01/30 completed Not Available Not Available Not Available vitamin B complex-f olic acid 0.4 mg tablet active Medicati on ID: [id number] B rand Name: vitamin B complex- folic acid Sen d Method: E-Prescr ibed Sub s Allowed: subs OK Medic ationGen ericName : vitamin B complex- folic acid Not Available Not Available Not Available FreeStyle Lite Strips USE TO CHECK BLOOD SUGAR 3 TIMES A DAY active Not Available Not Available No t Available Lantus Solostar U-100 Insulin 100 unit/mL (3 mL) subcutane ous pen INJECT 30 UNITS INTO THE SKIN EVERY MORNING. active Not Available Not Available No t Available Humalog KwikPen (U-100) Insulin 100 unit/mL subcutane ous PLEASE SEE ATTACHED FOR DETAILED DIRECTIO NS active Not Available Not Available No t Available diclofena c 1 % topical gel APPLY 4 G TOPICALL Y 2 TIMES DAILY. active Not Available Not Available No t Available Eliquis 5 mg tablet 2023 active Not Available Not Available Not Avai lable Farxiga 10 mg tablet 2024 active Not Available Not Available Not Avai lable Trulicity 0.75 mg/0.5 mL subcutane ous pen injector active Medicati on ID: [id number] B rand Name: Gus gordon Send Method: E-Prescr ibed Sub s Allowed: subs OK Medic ationGen ericName : Andrewit evan Not Available Not Available Not Available BD Elvia 2nd Gen Pen Needle 32 gauge x 5/32 INJECT INSULIN 4 TIMES A DAY active Not Available Not Available No t Available Dexcom G7 Sensor device APPLY SENSOR TOPICALL Y AND CHANGE EVERY 10 DAYS active Not Available Not Available No t Available Vitals Date Recorded Body height Body mass index (BMI) Body weight Provider Name and Address Organization Details Last Updated DateTime 03/23/2025 165.1 cm 26.6 kg/m2 15420.78 g AUDIE BURNETT [place] - [facility] 03/23/2025 10:40:55 Social History None recorded. Functional Status None recorded. Mental Status None recorded. Family History Nothing Reported. Medical History No medical history recorded. Past Encounters Encounter ID Performer Location Encounter Start Date Encounter Closed Date Diagnosis/Indication Diagnosis SNOMED-CT Code Diagnosis ICD10 Code Diagnosis Note [id number] NARENDRA KEANE MD [facility] [place] [address] [place] [address] 03/23/2025 09:56:48 03/23/2025 10:49:32 Sensorineural hearing loss of bilateral ears [id number] H90.3 Audiologic al evaluation results: {{Normal sloping Mi ld Moderat e* Moderat devin-severe Severe Pr ofound Nor mal auditory thresholds }} to {{mild mod erate mode rately-sev ere severe profound* with}} {{sensorin eural hearing loss with* cond uctive hearing loss with mixed hearing loss with}} {{excellen t good merlene r poor* no t measurable }} word recognitio n, bilaterall y. Tympanomet ry:Right Ear:{{Type A* Type As Type Ad Type C Type C, shallow & rounded Ty pe B Type B with large volume Cou ld not maintain a hermetic seal}}Left Ear:{{Type A Type As* Type Ad Type C Type C, shallow & rounded Ty pe B Type B with large volume Cou ld not maintain a hermetic seal}} Health Concerns Section Related Observation LastModified by Organization Detai ls LastModified Time None Recorded Concern Status LastModified by Organization Details LastModified Time None Recorded Advance Directives Directive None Recorded Payers Insurance Date Sequence Insurance Name Policy Number Policy Ramos Covered Member ID Ramos Member ID Guarantor Name 03/20/2025 1 [facility] - DOS ON OR AFTER 2023 - [employer] AND ONE [employer] (MEDICARE REPLACEMENT/ADV ANTAGE - PPO) [id number] Notes Date Note Type Note Provider Name and Address Organization Details Recorded Time 03/23/2025 text/html Hearing lossesco rted by granddaughtertried hearing aids about 10 yrs ago but was not able to use the 'computer technology'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
--- OUTSIDE RECORDS SUMMARY | 2025-03-27 13:56 | XMS_ITS | Clinical Summary ---
Author Organization 175 [facility] Address [address] [place] [address] Phone Care Team Providers Care Truck Unloader Name Role Phone Andrea Ramos MD Primary Care Provider [phone] Allergies No known active allergies Medications insulin glargine (LANTUS) 100 unit/mL injection Inject 32 Units under the skin 1 (one) time each day in the morning. Active blood sugar diagnostic (FreeStyle Lite Strips) test strip Use to check BS 3 times a day 300 each 3 12/02/19 25 026 Active insulin lispro 100 unit/mL injection Inject 3 times a day with meals per sliding scale: 100-149: 8 units; 150-200: 10 units; 201-250: 11 units; 251-300: 12 units; 301-350:13 units; 351-400: 15 units, DINNER - 2 UNITS 45 mL 5 12/02/19 25 Active Farxiga 10 mg tablet TAKE ONE TABLET BY MOUTH EVERY DAY ^1R1 30 tablet 5 01/09/20 25 Active valsartan (DIOVAN) 160 mg tablet Take 1 tablet (160 mg total) by mouth 1 (one) time each day. 90 tablet 01/31/20 25 Active doxazosin (CARDURA) 4 mg tablet Take 1 tablet (4 mg total) by mouth at bedtime. 90 tablet 2 01/31/20 25 Active NIFEdipine XL (PROCARDIA XL) 90 mg 24 hr tablet Take 1 tablet (90 mg total) by mouth 1 (one) time each day. 90 tablet 2 01/31/20 25 Active tamsulosin (FLOMAX) 0.4 mg 24 hr capsule TAKE ONE CAPSULE BY MOUTH EVERY DAY 30 MINUTES AFTER SAME MEAL EACH DAY ^1R3 30 capsule 5 02/07/20 25 Active FreeStyle Lancets 28 gauge lancets USE TO CHECK BLOOD SUGAR TWO TIMES A DAY (BULK) 200 each 1 02/04/20 25 Active B complex tablet TAKE ONE TABLET BY MOUTH EVERY DAY ^1R1 30 tablet 5 02/10/20 25 Active insulin syringe,safety needle (BD SafetyGlide Insulin Syringe) 1 mL 29 gauge x 1/2 syringe Inject 1 each under the skin 3 (three) times a day. Use to inject lantus and humalog tid 300 each 1 02/08/20 25 Active multivit-miner pick als/folic acid (CENTRUM ADULT 50 PLUS ORAL) Take 1 tablet by mouth 1 (one) time each day. Active glucose 4 gram chewable tablet Chew 4 tablets (16 g total) if needed for low blood sugar. 50 tablet 12 02/17/20 25 026 Active glucagon (Gvoke HypoPen 1-Pack) 1 mg/0.2 mL auto-injector Inject 1 mg under the skin if needed (Low blood sugar). Inject 1 Dose into the skin as needed for Other (low blood sugar). - Subcutaneous 0.2 mL 02/17/20 25 Active rosuvastatin (CRESTOR) 10 mg tablet TAKE ONE TABLET BY MOUTH EVERY DAY ^1R3 90 tablet 3 03/21/20 25 Active metoprolol succinate (TOPROL-XL) 100 mg 24 hr tablet TAKE ONE TABLET BY MOUTH EVERY DAY ^1R3 90 tablet 3 03/21/20 25 Active hydrALAZINE (APRESOLINE) 100 mg tablet TAKE ONE AND ONE-HALF TABLETS BY MOUTH TWICE A DAY ^1HR1,1HR3 90 tablet 5 03/21/20 25 Active Eliquis 5 mg tablet TAKE ONE TABLET BY MOUTH TWICE A DAY ^1R1,1R3 60 tablet 5 03/21/20 25 Active metoprolol succinate (TOPROL-XL) 100 mg 24 hr tablet Take 1 tablet (100 mg total) by mouth 1 (one) time each day. 025 Discontinued Eliquis 5 mg tablet TAKE ONE TABLET BY MOUTH TWICE A DAY ^1R1,1R3 180 tablet 1 09/26/20 24 025 Discontinued hydrALAZINE (APRESOLINE) 100 mg tablet TAKE 1 AND 1/2 TABLET BY MOUTH TWICE A DAY ^1HR1,1HR3 270 tablet 1 09/26/20 24 025 Discontinued rosuvastatin (CRESTOR) 10 mg tablet Take 1 tablet (10 mg total) by mouth 1 (one) time each day. 90 tablet 2 01/31/20 25 025 Discontinued Hospital, Clinic, or Other Facility Administered Medication Ordered Dose Route Frequency Start Date End Date Status triamcinolone acetonide (KENALOG-40) 40 mg/mL injection 40 mgIndications:Trigge r thumb of right hand 40 mg IAtc Once PRN Procedure 03/16/2025 03/16/2025 Ended Active Problems Problem Noted Date Diagnosed Date HLD (hyperlipidemia) 11/06/2024 Chronic renal impairment 07/25/2024 Diabetes mellitus ([facility] V24, [facility] V28) Overview (11/06/2024): TEE ROBERTS Monoclonal gammopathy 10/04/2023 [...] taking it. An EMG was performed at [place] and a lumbar spine MRI performed and [...] stenosis 08/18/2022 Chronic diastolic congestive heart failure ([facility] V24, [facility] V28) 03/07/2022 Overview (11/06/2024): -In spite of this, symptomatically he probably only has NYHA class II symptoms -See most recent echocardiogram under valve replacement section Last Assessment & Plan: Euvolemic on exam today, does not require a maintenance diuretic but is on spironolactone for blood pressure control Assessment & Plan (02/16/2025 1:40 PM EDT): Patient is euvolemic on exam today. Continue current Farxiga 10 mg daily, valsartan. Patient does not require loop diuretic as he is well-controlled from a volume standpoint. TIA (transient ischemic attack) 03/07/2022 Benign prostatic hyperplasia 11/29/2021 Nephrolithiasis 11/29/2021 Overview (11/06/2024): Follows with [facility] on annual basis. Renal cyst 11/29/2021 Type 2 diabetes mellitus ([facility] V24, [facility] V 28) 02/22/2020 Microalbuminuria 02/22/2020 Atrial flutter ([facility] V24, [facility] V28) 2015 Overview (11/06/2024): - Chronic, likely atypical - [...] dose which was Lopressor 100 twice daily). Assessment & Plan (02/16/2025 1:40 PM EDT): - Continue Eliquis for CVA prophylaxis - Continue metoprolol for rate control - Repeat echocardiogram in 1 year S/P AVR (aortic valve replacement) 01/16/2014 Overview (02/16/2025): -Status post bioprosthetic aortic valve replacement in 2015 with a #23 pericardial valve -Had a preop cath on 01/10/2016 which did not show any significant coronary disease -Most recent echocardiogram in January 2025 showed mild, concentric left ventricular hypertrophy with normal cavity size and hyperdynamic systolic function normal regional wall motion with an ejection fraction greater than 70%, mild RV enlargement with mildly reduced systolic function, bioprosthetic aortic valve replacement with a mobile focus of calcification adherent to the suture or stented portion of the valve replacement anteriorly which could represent a possible vegetation in the right clinical situation but may also be fibrocalcific in nature, severe MAC with mild mitral stenosis and trace regurgitation, mild pulmonary hypertension with RV systolic pressure 44 mmHg, dilated ascending aorta at 3.9 cm-compared with prior echo from December 2023, the mobile calcified lesion attached to the aortic valve prosthesis was more prominent but all other findings were stable Assessment & Plan (02/16/2025 1:40 PM EDT): Valve sounds good today. With regards to possible valvular vegetation-the patient is having no symptoms or signs of endocarditis. - Follow up with the lab regarding blood cultures to ascertain the reason for the delay in results - Repeat blood cultures if results remain pending - Annual reassessment of the aortic valve replacement Orders: Blood culture; Future DM (diabetes mellitus), type 2 with renal complications ([facility] V24, [facility] V28) 12/28/2013 Overview (11/06/2024): Microalbumin 263 on 11/21/13. OA (osteoarthritis) of knee 10/21/2012 Essential hypertension 02/18/2012 Overview (11/06/2024): Last Assessment & Plan: Seems to be suboptimally controlled at home but controlled in the office. Resuming Toprol XL as above. Assessment & Plan (02/16/2025 1:40 PM EDT): Suboptimally controlled initially, but better controlled on prior visits and on recheck. Suspected white coat phenomenon. - No changes to current regimen Resolved Problems Problem Noted Date Diagnosed Date Resolved Date Heart murmur 11/06/2024 02/16/2025 Mitral regurgitation 11/06/2024 025 Coronary arteriosclerosis 02/12/2024 Overview (11/06/2024): ELIQUIS Encounters Date Type Department Care Team Description 03/16/2025 9:30 AM EDT Office Visit Orthopedic Surgery - [place] [facility] [address] [place] [phone] Tay Walton MD Pain of right thumb (Primary Dx); Trigger thumb of right hand; Arthritis of carpometacarpal (CMC) joint of right thumb 03/10/2025 2:15 PM EDT Office Visit Endocrinology [address] [phone] María Welch PA Type 2 diabetes mellitus with other specified complication, without long-term current use of insulin ([facility] V24, CMS/HCC V28) (Primary Dx) 03/08/2025 Nurse Triage Adult Medicine [address] [phone] Rosalia Wallis MA Knee Pain; Shoulder Pain 03/08/2025 Telephone Adult Medicine [address] [phone] Rosalia Wallis MA 03/03/2025 9:45 AM EDT Clinical Support General Surgery [facility] 175 [facility] [address] [place] [phone] Visit for suture removal (Primary Dx) 02/22/2025 10:15 AM EDT Office Visit [facility] Hematology Oncology [address] [place] [phone] Kusum Bess MD IgG monoclonal gammopathy (Primary Dx) 02/22/2025 7:40 AM EDT Lab Draw Station - [address] [phone] S/P AVR (aortic valve replacement) 02/17/2025 9:00 AM EDT Procedure visit General Surgery - [place] [facility] [address] [place] [phone] Leonrad Arteaga MD Mass in neck (Primary Dx) 02/17/2025 Telephone Endocrinology - [address] [phone] María Welch PA Medication Problem 02/16/2025 9:20 AM EDT Office Visit [facility] [address] [facility] [address] [place] [phone] Brigitte Soto MD S/P AVR (aortic valve replacement) (Primary Dx); Essential hypertension; Typical atrial flutter (CMS/HCC V24, CMS/HCC V28); Chronic diastolic congestive heart failure (CMS/HCC V24, CMS/HCC V28) 02/16/2025 Telephone [facility] [address] [facility] [address] [place] [phone] Brigitte Soto MD Labs Only (Lab results ) 02/16/2025 Telephone Endocrinology - [address] [phone] María Welch PA MEDICATION 02/08/2025 10:00 AM EDT Ancillary Procedure [facility] [address] [place] [phone] S/P AVR (aortic valve replacement) 02/08/2025 Telephone [facility] [address] [place] [address] Brigitte Soto MD Appointment; appt 02/16/2025 (Appt with ) 02/07/2025 Telephone Adult Medicine [address] [phone] Estela Knapp PharmD diabetic shoes 02/06/2025 8:45 AM EDT Consult [address] [phone] Leonard Arteaga MD Neck mass 02/06/2025 Telephone [facility] Surgery [address] [phone] Leonard Arteaga MD Prior Authorization (02/17/25 Dr. Leonard Arteaga) 01/30/2025 11:30 AM EDT Office Visit Adult Medicine [address] [phone] Andrea Ramos MD Essential hypertension (Primary Dx); Bilateral hearing loss, unspecified hearing loss type; Neck mass; Memory problem; Chronic diastolic congestive heart failure ([facility] V24, CMS/[facility] V28); Type 2 diabetes mellitus with diabetic microalbuminuria, with long-term current use of insulin (CMS/HCC V24, CMS/[facility] V28); Microalbuminuria; Pure hypercholesterolemia; Monoclonal gammopathy from Last 3 Months Surgical History Surgery Date Site/Laterality Comments LUMBAR LAMINECTOMY 2006 PROCEDURE: HISTORICAL LUMB LAMINECTOMY; COMMENT: Dr. Grimes, L4-5, L5-S1 decompression HAND SURGERY PROCEDURE: HISTORICAL HAND SURGERY; COMMENT: left 3trd trigger COLONOSCOPY 03/02/2014 PROCEDURE: HISTORICAL COLONOSCOPY; COMMENT: normal; would not repeat CATARACT EXTRACTION 2020 Bilateral PROCEDURE: HISTORICAL CATARACT REMOVAL OTHER SURGICAL HISTORY 2016 PROCEDURE: WI RPLCMT AORTIC VALVE ANNULUS ENLGMENT NONC SINUS KNEE SURGERY 2016 Right PROCEDURE: HISTORICAL KNEE SURGERY SHOULDER SURGERY 1990 Right PROCEDURE: HISTORICAL SHOULDER SURGERY MECHANICAL AORTIC VALVE REPLACMENT AND MITRAL VALVE REPAIR N/A TRIGGER FINGER RELEASE 08/19/2024 Left TRIGGER FINGER RELEASE 09/30/2024 Right Medical History Medical History Date Comments HTN (hypertension) 02/18/2012 DX:HTN (hyper tension) DM type 2 (diabetes mellitus , type 2) (CMS/HCC V24, CMS/HCC V28) 02/18/2012 DX:DM type 2 (diabetes dez itus, type 2) ([facility]) Historical Medical DX 02/18/2012 DX:Hyperli pidemia LDL goal < 70 OA (osteoarthritis) of knee 10/21/2012 DX:O A (osteoarthritis) of knee; COMMENT: right knee Atrial fibrillation, chronic (CMS/HCC V24, CMS/HCC V28) DX: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 Hyperlipidemia Heart valve [...] Sign Reading Time Taken Comments Blood Pressure 120/60 03/10/2025 2:22 PM EDT C Pulse 64 03/10/2025 2:22 PM EDT Temperature 36.7 ??C (98.1 ??F) 03/10/2025 2:22 PM ED T Respiratory Rate 18 01/30/2025 11:29 AM EDT Oxygen Saturation 99% 03/10/2025 2:22 PM EDT Inhaled Oxygen Concentration - - Weight 74.8 kg (165 lb) 03/16/2025 9:21 AM EDT Height 165.1 cm (5' 5 ) 03/16/2025 9:21 AM EDT Body Mass Index 27.46 03/16/2025 9:21 AM EDT Plan of Treatment Upcoming Encounters Date Type Department Care Team (Late st Contact Info) Description 05/10/2025 3:30 PM EDT Office Visit Adult Medicine [address] [phone] Beata Pulliam MD [address] [place] [phone] 06/13/2025 1:15 PM EDT Office Visit Endocrinology - [address] [phone] María Welch PA [address] [place] [address] 08/15/2025 11:30 AM EDT Office Visit Adult Medicine South - [address] [phone] Andrea Ramos MD [address] [place], [place] 08/30/2025 9:10 AM EDT Office Visit [facility] [address] [facility] [address] [place] [phone] Dipak Corbett NP [address] [place] [address] 10/24/2025 10:30 AM EST Office Visit [facility] Hematology Oncology [address] [place] [phone] Kusum Bess MD [address] [place] [address] 10/31/2025 10:00 AM EST Office Visit Orthopedic Surgery - [place] [address] [phone] Ruslan Lyle DPM [address] [address] Health Maintenance Due Date Last Done Comments Diabetes: Annual Foot Exam 1957 Diabetes: Annual Retina Eye Exam 1955 Zoster Vaccines (1 of 2) 1966 RSV Immunization Adult Patients (1 - 1-dose 75+ series) 2022 Depression Screening 10/24/2022 Falls Risk Assessment 10/24/2022 Hepatitis C Screening 10/24/2022 Medicare Annual Wellness Visit 10/24/2022 Social Influencers of Health Screening 10/24/2022 COVID-19 Vaccine ( season) 2024 09/15/2022, 09/13/2021, 03/07/2021, Additional history exists Influenza Vaccine (Season Ended) 2025 09/24/2007 Diabetes: Blood Sugar Control Test (HGBA1C) 09/09/2025 03/10/2025, 12/02/2024, 08/05/2024, Additional history exists Diabetes: Annual Urine Albumin-Creatinine Ratio (uACR) 12/02/2025 12/02/2024 Diabetes: Annual GFR (Glomerular Filtration Rate) 03/10/2026 03/10/2025, 02/15/2025, 12/02/2024, Additional history exists Hypertension/CHF/CAD Annual BMP Blood Test 03/10/2026 03/10/2025, 02/15/2025, 12/02/2024, Additional history exists Cholesterol Screening (Lipid Panel) 12/02/2029 12/02/2024 DTaP,Tdap,and [...] age to complete this topic Meningococcal B Vaccine Aged Out No l onger eligible based on patient's age to complete this topic RSV Immunization Patients Under 20 months Aged Out No longer eligible based on patient's age to complete this topic Varicella Vaccines Aged Out No longer eligible based on patient's age to complete this topic Procedures Procedure Name Priority Date/Time Associated Diagnosis Comments XR FINGERS 2+ VIEWS RIGHT Routine 03/16/2025 9:58 AM EDT Pain of right thumb WI INJECTION SINGLE TENDON SHEATH OR LIGAMENT APONEUROSIS Routine 03/16/2025 9:30 AM EDT Trigger thumb of right hand CBC WITH AUTO DIFFERENTIAL Routine 03/10/2025 2:59 PM EDT IgG monoclonal gammopathy CBC AND DIFFERENTIAL Routine 03/10/2025 2:59 PM EDT IgG monoclonal gammopathy COMPREHENSIVE METABOLIC PANEL Routine 03/10/2025 2:59 PM EDT IgG monoclonal gammopathy KAPPA-LAMBDA QUANTITATIVE FREE LIGHT CHAINS Routine 03/10/2025 2:59 PM EDT IgG monoclonal gammopathy HEMOGLOBIN A1C Routine 03/10/2025 2:59 PM EDT Type 2 diabetes mellitus with other specified complication, without long-term current use of insulin ([facility] V24, [facility] V28) POC GLUCOSE Routine 03/10/2025 2:25 PM EDT Type 2 diabetes mellitus with other specified complication, without long-term current use of insulin ([facility] V24, CMS/[facility] V28) SUTURE REMOVAL Routine 03/03/2025 9:22 AM EDT Visit for suture removal CULTURE BLOOD Routine 02/22/2025 8:17 AM EDT S/P AVR (aortic valve replacement) TISSUE EXAM Routine 02/17/2025 9:35 AM EDT Mass in neck IMMUNOGLOBULINS IGG, IGA, IGM Routine 02/15/2025 8:20 AM EDT Monoclonal gammopathy CBC WITH AUTO DIFFERENTIAL Routine 02/15/2025 8:12 AM EDT Atrial flutter ([facility] V24, [facility] V28) CBC AND DIFFERENTIAL Routine 02/15/2025 8:12 AM EDT Atrial flutter (CMS/HCC V24, CMS/HCC V28) COMPREHENSIVE METABOLIC PANEL Routine 02/15/2025 8:12 AM EDT Atrial flutter (CMS/HCC V24, CMS/HCC V28) CULTURE BLOOD Routine 02/09/2025 8:45 AM EDT Atrial flutter, unspecified type (CMS/HCC V24, CMS/HCC V28) TRANSTHORACIC ECHOCARDIOGRAM (TTE) COMPLETE Routine 02/08/2025 10:53 AM EDT S/P AVR (aortic valve replacement) MICROALBUMIN CREATININE URINE RATIO Routine 12/02/2024 1:40 PM EST Type 2 diabetes mellitus with other specified complication, unspecified whether prison insulin use (CMS/HCC V24, CMS/[facility] V28) LIPID PANEL WITH REFLEX TO DIRECT LDL Routine 12/02/2024 1:40 PM EST Type 2 diabetes mellitus with other specified complication, unspecified whether prison insulin use (CMS/[facility] V24, CMS/[facility] V28) from Last 3 Months or Most Recently Relevant to Health Maintenance Results * XR Fingers 2+ Views Right (03/16/2025 9:58 AM EDT) Anatomical Region Laterality Modality Upper Extremities, Fingers Right Compu su Radiography Narrative 03/16/2025 10:13 AM EDT Three-view x-ray of the right thumb shows degenerative changes at the thumb CMC and MP joint, there is no fracture or dislocation, soft tissue shadows show calcification of the radial artery. Normal carpal alignment. Impression: Mild degenerative changes at the thumb MP and CMC joint. Tay Walton MD IMG XR PROCEDURES Final Result * WI INJECTION SINGLE TENDON SHEATH OR LIGAMENT APONEUROSIS (03/16/2025 9:30 AM EDT) Narrative Tay Walton MD - 03/16/2025 9:30 AM EDT Tay Walton MD ? 03/16/2025 10:15 AM Hand / UE Inj/Asp: R thumb A1 for trigger finger Indications: pain Details: 27 G needle, volar approach Medications: 40 mg triamcinolone acetonide 40 mg/mL Outcome: tolerated well, no immediate complications Site was prepped in standard fashion using alcohol swab, sterile technique was used to perform the injection, the patient tolerated the procedure well and a band-aid dressing was applied Informed Consent: ??Site: ??Right thumb ??Laterality: ??Right ??Relevant images/test results available and reviewed: yes ?Health status cleared: ??Yes ??Procedure/treatment, purpose, treatment alternatives, risks/potential complications and benefits explained: yes ?Risk/complications/benefits details: ??Risk/complications/benefits details: ??Risks and benefits of corticosteroid injection were discussed, including risk of pain, bleeding, infection, tissue attenuation, tendon rupture, changes in skin color, and injury to surrounding structures such as arteries, veins and nerves. We also discussed the patient may develop worsening pain for a few days before having improvement in their symptoms. ??Patient questions answered: yes ?Patient agrees, verbalizes understanding, and wants to proceed: yes ?Consent given by: ??Patient ??Informed consent discussion completed by Physician/LORRIE with patient: ?? Verbal ??Pre-procedure timeout performed: yes ?? us Tay Walton MD IN CLINIC/BEDSIDE ORDERABLES Fin al Result * (ABNORMAL) Sehili-lambda free light chains, quantitative (03/10/2025 2:59 PM EDT) Sehili Free Light Chain 4.82(H) 0.33 - 1.94 mg/dL 03/13/2025 1:31 PM EDT [facility] Lambda Free Light Chain 1.29 0.57 - 2.63 mg/dL 03/13/2025 1:31 PM EDT [facility] Sehili/Lambda FLC Ratio 3.74(H) 0.26 - 1.65 03/13/2025 1:31 PM EDT [facility] Comment: Test performed at [facility], [address] [place], [place] ??[address] ? [phone] Amirah Randhawa MD, PhD - Feature Writer Blood Venous blood specimen / Unknown Venipuncture / Unknown 03/10/2025 2:59 PM EDT 03/10/2025 2:59 PM EDT Kusum Bess MD LAB BLOOD ORDERABLES Final R esult [facility] [place] [address] * (ABNORMAL) CBC auto differential (03/10/2025 2:59 PM EDT) Only the most recent of2 resultswithin the time period is included. WBC 9.4 4.8 - 10.8 K/mcL LAB HEMETOLOGY METHOD 03/10/2025 4:41 PM [facility] RBC 4.40(L) 4.50 - 5.50 M/mcL LAB HEMETOLOGY METHOD 03/[facility]25 4[facility] Hemoglobin 12.2(L) 13.5 - 17.5 g/dL LAB HEMETOLOGY METHOD 03/10/2025 4:41 PM [facility] Hematocrit 37.0(L) 42.0 - 54.0 % LAB HEMETOLOGY METHOD 03/10/2025 4:41 PM [facility] MCV 84.3 79.0 - 98.0 FL LAB HEMETOLOGY METHOD 03/10/2025 4:41 PM [facility] MCH 27.8 27.0 - 32.0 pcg LAB HEMETOLOGY METHOD 03/10/2025 4:41 PM [facility] MCHC 33.0 32.0 - 37.0 g/dL LAB HEMETOLOGY METHOD 03/10/2025 4:41 PM [facility] RDW 13.2 11.0 - 15.0 % LAB HEMETOLOGY METHOD 03/10/2025 4:41 PM [facility] Platelets 299 130 - 400 K/mcL LAB HEMETOLOGY METHOD 03/10/2025 4:41 PM [facility] MPV 11.3(H) 7.0 - 11.0 FL LAB HEMETOLOGY METHOD 03/10/2025 4:41 PM [facility] NRBC 0.0 <1.0 % LAB HEMETOLOGY METHOD 03/10/2025 4:41 PM [facility] NRBC Absolute 0.00 <0.10 K/mcL LAB HEMETOLOGY METHOD 03/10/2025 4:41 PM [facility] Neutrophils Relative 64.1 % LAB HEMETOLOGY METHOD 03/10/2025 4:41 PM [facility] Lymphocytes Relative 23.0 % LAB HEMETOLOGY METHOD 03/10/2025 4:41 PM [facility] Monocytes Relative 10.6 % LAB HEMETOLOGY METHOD 03/10/2025 4:41 PM [facility] Eosinophils Relative 1.7 % LAB HEMETOLOGY METHOD 03/10/2025 4:41 PM [facility] Basophils Relative 0.3 % LAB HEMETOLOGY METHOD 03/10/2025 4:41 PM [facility] Immature Granulocytes Relative 0.3 % LAB HEMETOLOGY METHOD 03/10/2025 4:41 PM [facility] Neutrophils Absolute 6.03 1.50 - 7.00 K/mcL LAB HEMETOLOGY METHOD 03/10/2025 4:41 PM [facility] Lymphocytes Absolute 2.17 1.00 - 5.00 K/mcL LAB HEMETOLOGY METHOD 03/10/2025 4:41 PM [facility] Monocytes Absolute 1.00 0.20 - 1.00 K/mcL LAB HEMETOLOGY METHOD 03/10/2025 4:41 PM EDT [facility] Eosinophils Absolute 0.16 0.00 - 0.50 K/[facility] LAB HEMETOLOGY METHOD 03/10/2025 4:41 PM EDT [facility] Basophils Absolute 0.03 0.00 - 0.20 K/[facility] LAB HEMETOLOGY METHOD 03/10/2025 4:41 PM EDT [facility] Immature Granulocytes Absolute 0.03 0.00 - 0.03 K/[facility] HEMETOLOGY METHOD 03/10/2025 4:41 PM EDT [facility] Blood Venous blood specimen / Unknown Venipuncture / Unknown 03/10/2025 2:59 PM EDT 03/10/2025 2:59 PM EDT Kusum Bess MD LAB BLOOD ORDERABLES Final R esult [facility] [address] [place] [address], [place] [phone] * (ABNORMAL) Hemoglobin A1c (03/10/2025 2:59 PM EDT) Hemoglobin A1C 7.4(H) <6.5 % LAB CHEMISTRY METHOD 03/10/2025 9:55 PM EDT [facility] Mean Bld Glu Estim. 166 mg/dL LAB CHEMISTRY METHOD 03/10/2025 9:55 PM EDT [facility] Blood Venous blood specimen / Unknown Venipuncture / Unknown 03/10/2025 2:59 PM EDT 03/10/2025 2:59 PM EDT María PERRY LAB BLOOD ORDERABLES Final Result [facility] [address] [place] [address], [place] [phone] * (ABNORMAL) Comprehensive metabolic panel (03/10/2025 2:59 PM EDT) Only the most recent of2 resultswithin the time period is included. Sodium 134 133 - 145 mmol/L LAB CHEMISTRY METHOD 03/10/2025 6:37 PM [facility] Potassium 4.2 3.5 - 5.5 mmol/L LAB CHEMISTRY METHOD 03/10/2025 6:37 PM [facility] Chloride 99 96 - 110 mmol/L LAB CHEMISTRY METHOD 03/10/2025 6:37 PM [facility] CO2 26 21 - 32 mmol/L LAB CHEMISTRY METHOD 03/10/2025 6:37 PM [facility] Anion Gap 9 3 - 11 LAB CHEMISTRY METHOD 03/10/2025 6:37 PM [facility] Glucose 257(H) 70 - 100 mg/dL LAB CHEMISTRY METHOD 03/10/2025 6:37 PM [facility] BUN 27(H) 5 - 25 mg/dL LAB CHEMISTRY METHOD 03/10/2025 6:37 PM [facility] Creatinine 1.65(H) 0.70 - 1.30 mg/dL LAB CHEMISTRY METHOD 03/10/2025 6:37 PM [facility] eGFR 42(L) >=60 mL/min/1. 73m2 LAB CHEMISTRY METHOD 03/10/2025 6:37 PM [facility] Comment:Calculation based on the??Chronic Kidney Disease Epidemiology Collaboration (CKD-EPI) equation refit??without adjustment for race. BUN/Creatinine Ratio 16.4 LAB CHEMISTRY METHOD 03/10/2025 6:37 PM [facility] Calcium 9.5 8.5 - 10.5 mg/dL LAB CHEMISTRY METHOD 03/10/2025 6:37 PM [facility] AST (SGOT) 13 10 - 42 unit/L LAB CHEMISTRY METHOD 03/10/2025 6:37 PM EDT [facility] ALT (SGPT) 17 10 - 60 unit/L LAB CHEMISTRY METHOD 03/10/2025 6:37 PM EDT [facility] Alkaline Phosphatase 69 42 - 121 unit/L LAB CHEMISTRY METHOD 03/10/2025 6:37 PM EDT [facility] Total Protein 8.2(H) 6.0 - 8.0 g/dL LAB CHEMISTRY METHOD 03/10/2025 6:37 PM EDT [facility] Albumin 3.8 3.2 - 5.0 g/dL LAB CHEMISTRY METHOD 03/10/2025 6:37 PM EDT [facility] Total Bilirubin 0.5 0.0 - 1.4 mg/dL LAB CHEMISTRY METHOD 03/10/2025 6:37 PM EDT [facility] Blood Venous blood specimen / Unknown Venipuncture / Unknown 03/10/2025 2:59 PM EDT 03/10/2025 2:59 PM EDT us Kusum Bess MD LAB BLOOD ORDERABLES Final R esult [facility] [address] [place] [address], [place] [phone] * POC glucose manually resulted (03/10/2025 2:25 PM EDT) Glucose POC 271 mg/dL Comment:Non fasting Blood Capillary blood specimen / Unknown 03/10/2025 2:25 PM EDT us María PERRY POINT OF CARE TEST ENTER/ED IT ORDERABLES Final Result * SUTURE REMOVAL (03/03/2025 9:22 AM EDT) Narrative Stephanie Darling MA - 03/03/2025 9:22 AM EDT Stephanie Darling MA ? 03/03/2025 ??9:23 AM Suture Removal Date/Time: 03/03/2025 9:22 AM Performed by: Stephanie Darling MA Authorized by: Leonard Arteaga MD ?? Consent: ??Consent obtained: ??Verbal ??Consent given by: ??Patient ??Alternatives discussed: ??No treatment Pierre protocol: ??Patient identity confirmed: ??Verbally with patient Location: ??Location: ??Head/neck ??Head/neck location: ??Neck Procedure details: ??Wound appearance: ??No signs of infection, good wound healing, nonpurulent, nontender and clean Post-procedure details: ??Post-removal: ??No dressing applied ??Procedure completion: ??Tolerated us Leonard Arteaga MD IN CLINIC/BEDSIDE ORDERABLES Fi nal Result * Blood culture (02/22/2025 8:17 AM EDT) Only the most recent of2 resultswithin the time period is included. Culture, Blood No growth at 5 days LAB MICROBIOLOGY METHOD 02/27/2025 11:01 AM EDT [facility] Blood Venous blood specimen / Unknown Venipuncture / Unknown 02/22/2025 8:17 AM EDT 02/22/2025 8:17 AM EDT us Brigitte Soto MD LAB MICROBIOLOGY - [facility] Final Result [facility] [address] [place] [address], * Tissue exam (02/17/2025 9:35 AM EDT) Final Diagnosis Skin, right neck-excision: -LIPOMA 02/21/2025 11:28 AM EDT [facility] Clinical Information Right neck mass Mass in neck R22.1 02/21/2025 11:28 AM EDT [facility] Gross Description A. Neck, excision: Labeled neck . Received in formalin is a 1.5 x 1.1 x 1.1 cm yellow-tomlinson fibrofatty tissue fragment which is partially surfaced by a 1.5 x 0.2 cm wrinkled tomlinson-white skin. The cut surfaces are comprised of glistening yellow lobular adipose tissue with no areas of hemorrhage or necrosis. Activity Director sections are submitted in one cassette, three pieces. GABRIELLE 02/21/2025 11:28 AM EDT [facility] Disclaimer Unless otherwise specified, all tissue is 10% NB formalin fixed and paraffin embedded. 02/21/2025 11:28 AM EDT [facility] Tissue Neck structure / Unknown Non-blood Collection / Unknown 02/17/2025 9:35 AM EDT 02/17/2025 9:45 AM EDT Comment:Right neck mass Leonard Arteaga MD LAB PATHOLOGY ORDERABLES Final Result Performing Organization Address City/State/[facility] Co de Phone Number [facility] [address] [place] [address], * (ABNORMAL) Immunoglobulins IgG, IgA, IgM (02/15/2025 8:20 AM EDT) Total IgG 2,520(H) 549 - 1,584 mg/dL LAB CHEMISTRY METHOD 02/15/2025 12:48 PM EDT [facility] IgA 90 61 - 348 mg/dL LAB CHEMISTRY METHOD 02/15/2025 12:48 PM EDT [facility] IgM 22(L) 23 - 259 mg/dL LAB CHEMISTRY METHOD 02/15/2025 12:48 PM EDT [facility] Blood Venous blood specimen / Unknown Venipuncture / Unknown 02/15/2025 8:20 AM EDT 02/15/2025 11:59 AM EDT Kusum Bess MD LAB BLOOD ORDERABLES Final R esult [facility] [address] [place] [address], [place] [phone] * (ABNORMAL) TRANSTHORACIC ECHOCARDIOGRAM (TTE) COMPLETE (02/08/2025 10:53 AM EDT) Left Atrium Minor Patterson 6.2 cm CV PACS Left Atrium Major Patterson 6.4 cm CV PACS LA Area Sys (A2C) 25 cm2 CV PACS LA Area Sys (A4C) 24 cm2 CV PACS LA Volume (BP) 70 mL CV PACS RA Area 23.1 cm2 CV PACS RA 2D Volume 68 mL CV PACS AV Mean Gradient 14 mmHg CV PACS Ao VTI 61.6 cm CV PACS AV Peak Tom 3.3 m/s CV PACS AV Peak Gradient 44 mmHg CV PACS Aortic Sinus Valsalva 2.7 cm CV PACS Ascending Aorta 3.9 cm CV PACS IVC Proximal 2.4 cm CV PACS IVC Proximal 0.9 cm CV PACS IVSD 1.3(A) 0.6 - 1.0 cm CV PACS LVIDD 4.5 4.2 - 5.8 cm CV PACS LVIDS 3.0 2.5 - 4.0 cm CV PACS LVOT Mean Tom 0.9 m/s CV PACS LVOT Mean Grad 2 mmHg CV PACS LVOT Peak VTI 31.3 cm CV PACS LVOT Peak Tom 1.3 m/s CV PACS LVOT Peak Gradient 7 mmHg CV PACS LVPWD 1.3(A) 0.6 - 1.0 cm CV PACS LVOT Stroke Volume 98 mL CV PACS MV Mean Gradient 3 mmHg CV PACS MV VTI 42.6 cm CV PACS Mitral Valve Max Velocity 1.8 m/s CV PACS MV Peak Gradient 10 mmHg CV PACS PV Acceleration Time 81 ms CV PACS RV Diastolic Basal Dimension 4.3(A) 2.5 - 4.1 cm CV PACS TAPSE 20 mm CV PACS TR Peak Velocity 2.90 m/s CV PACS TR Peak Gradient 35 mmHg CV PACS Relative Wall Thickness ratio 0.57(A) 0.24 - 0.42 CV PACS LVOT:AV VTI Index 0.51 CV PACS FS 33 % CV PACS LV Mass 2D 212(A) 96 - 200 g CV PACS MV VTI:LVOT VTI ratio 1.4 CV PACS AV Velocity Ratio 0.41 CV PACS BSA 1.84 m2 CV PACS LA Volume Index (BP) 38 mL/m2 CV PACS LVIDD Index 2.49 cm/m2 CV PACS LVIDS Index 1.66 cm/m2 CV PACS LV Mass Index 2D 123(A) 50 - 102 g/m2 CV PACS LVOT Stroke Index 0 mL/m2 CV PACS RA 2D Volume Index 38(A) 18 - 32 mL/m2 CV PACS Ascending Aorta Index 2.15 cm/m2 CV PACS Right Ventricular Peak Systolic Pressure 42 mmHg CV PACS Est. RA Pressure 8 mmHg CV PACS RA Major Patterson 6.1 cm CV PACS RA Major Patterson Index 3.4(A) 2.1 - 2.7 cm/m2 CV PACS Inferior Vena Cava Diameter At Inspiration 0.9 cm CV PACS IVC Inspiration Index 0.50 cm/m2 CV PACS Inferior Vena Cava Diameter At Expiration 2.4 cm CV PACS IVC Expiration Index 1.33 cm/m2 CV PACS AV Area Index 0.7 CV PACS LVOT Diameter 2.0 cm CV PACS LVOT Area 3.1 cm2 CV PACS MV Area Continuity Equation 2.3 cm2 CV PACS AV Area 2D 1.3 cm2 CV PACS ELSI Index (2D) 0.72 cm2/m2 CV PACS AV Area Continuity Equation 1.6 cm2 CV PACS ELSI Index (VTI) 0.88 cm2/m2 CV PACS LVOT flow 283 mL/s CV PACS Anatomical Region Laterality Modality Ultrasound Narrative 02/08/2025 2:58 PM EDT ?Left ventricle cavity size is normal. ??There is mild, concentric left ventricular hypertrophy. ??Left ventricular systolic function is hyperdynamic with an ejection fraction over 70%. ??There is normal left ventricular regional wall motion. ??Paradoxic septal motion is noted in keeping with prior cardiac surgery. ?Right ventricle is mildly enlarged. Right ventricular systolic function is mildly reduced. ?A bioprosthetic aortic valve is present. ??There is a mobile focus of calcification adherent to the suture or stented portion of valve replacement anteriorly. ??This is likely degenerative in nature but this could represent a vegetation (likely at least partially healed) in the right clinical situation. ??Valve is otherwise well-seated with physiologic performance. ??There is no aortic insufficiency noted. ?There is severe mitral annular calcification. ??There is mild, calcific mitral stenosis. ??There is trace regurgitation. ?There is evidence of mild pulmonary hypertension with RV systolic pressure 44 mmHg. ?The ascending aorta is mildly dilated for age and body surface area at 3.9 cm. ?Compared to prior echocardiogram from 01/12/2024, the mobile calcified lesion attached to the aortic valve prosthesis is more prominent on today's study. ??All other findings are stable. Left Ventricle Left ventricle cavity size is normal. There is mild hypertrophy. Systolic function is hyperdynamic with an ejection fraction over 70%. There are no regional LV wall motion abnormalities. Unable to assess diastolic function. There is abnormal septal motion consistent with post-operative status. Right Ventricle Right ventricle cavity is dilated. Systolic function is mildly reduced. Left Atrium Left atrium cavity is mildly dilated. Right Atrium Right atrium cavity is mildly dilated. IVC/SVC Inferior vena cava structure is normal. RA pressures is estimated to be 8 mmHg (IVC diameter >21 mm and decreases >50% during inspiration). Mitral Valve The leaflets are moderately thickened. There is severe annular calcification. There is trace regurgitation. There is mild calcific stenosis. Mean gradient average is 3 mmHg. Tricuspid Valve Tricuspid valve structure is normal. There is moderate regurgitation with a central jet. There is no significant tricuspid valve stenosis. The right ventricular systolic pressure is mildly elevated. The RVSP is estimated at 42 mmHg. Aortic Valve The valve has been surgically replaced. There is a bioprosthetic valve. A mobile focus of calcium is seen attached to the suture or stented portion of this valve anteriorly. This likely represents fibrocalcific, degenerative change. However, in the right clinical circumstance, this could represent a healed vegetation. The prosthetic valve appears to be functioning normally. Valve leaflet motion is normal. The gradient recorded across the prosthetic aortic valve is within the expected range. Acceleration time is 88 ms. There is no regurgitation or stenosis. Pulmonic Valve The pulmonic valve was not well visualized. Visualized portions of the pulmonic valve appear normal. There is trace pulmonic valve regurgitation. No significant pulmonary valve stenosis noted. Ascending Aorta The ascending aorta is mildly dilated at 3.9 cm for age and body surface area. The aortic root is normal in size. Pericardium Pericardium appears normal. There is no pericardial effusion. Study Details Overall the study quality was adequate. The underlying ECG rhythm was atrial fibrillation. Brigitte Soto MD CV ECHO PROCEDURES Final Result * Lipid panel with reflex to direct LDL (12/02/2024 1:40 PM EST) Cholesterol 122 0 - 200 mg/dL LAB CHEMISTRY METHOD 12/02/2024 10:46 PM EST [facility] Triglycerides 107 0 - 150 mg/dL LAB CHEMISTRY METHOD 12/02/2024 10:46 PM EST [facility] HDL 63 >=40 mg/dL LAB CHEMISTRY METHOD 12/02/2024 10:46 PM EST [facility] LDL Calculated 38 0 - 100 mg/dL LAB CHEMISTRY METHOD 12/02/2024 10:46 PM EST [facility] VLDL Cholesterol Hipolito 21.4 mg/dL LAB CHEMISTRY METHOD 12/02/2024 10:46 PM EST [facility] Non HDL Chol. (LDL+VLDL) 59 <145 mg/dL LAB CHEMISTRY METHOD 12/02/2024 10:46 PM EST [facility] Chol/HDL Ratio 1.9 0.0 - 4.4 LAB CHEMISTRY METHOD 12/02/2024 10:46 PM [facility] Blood Venous blood specimen / Unknown Venipuncture / Unknown 12/02/2024 1:40 PM EST 12/02/2024 1:40 PM EST us María PERRY LAB BLOOD ORDERABLES Final Result [facility] [address] [place] [address], [place] [phone] * (ABNORMAL) Microalbumin creatinine urine ratio (12/02/2024 1:40 PM EST) Creatinine, Urine 114.0 mg/dL LAB CHEMISTRY METHOD 12/02/2024 11:25 PM EST [facility] Microalb, Ur 450.0(H) 0.0 - 29.0 mg/L LAB CHEMISTRY METHOD 12/02/2024 11:25 PM EST [facility] Microalb/Crea t Ratio 395(H) <30 mg/g creat LAB CHEMISTRY METHOD 12/02/2024 11:25 PM EST [facility] Urine Urine specimen from urethra / Unknown Non-blood Collection / Unknown 12/02/2024 1:40 PM EST 12/02/2024 1:40 PM EST us María PERRY LAB URINE ORDERABLES Final Result [facility] [address] [place] [address], [place] [phone] from Last 3 Months or Most Recently Relevant to Health Maintenance Insurance [facility] [employer] [employer] Member Subscriber Plan / Payer (Ef fective 2016-Present) Name:Cecilio Lane Relation to Subscriber:Self Name:Cecilio Lane Payer ID:[id number] Group ID:[id number] Type:Not on file Address: [place] [address] [place] [id number] Care Teams Truck Unloader Relationship Specialty Start Date End Date Andrea Ramos MD [address] [place] [id number] PCP - General Internal Medicine 01/23/12
--- OUTSIDE RECORDS SUMMARY | 2025-03-27 13:56 | XMS_ITS | Encounter Summary ---
Author Organization [facility] Address [address] [place] [address] Care Team Providers Care Director Patient Financial Services Name Role Phone Andrea Ramos MD Primary Care Provider [phone] Encounter Details Date Type Department Care Team (Late Contact Info) Description 03/08/2025 Telephone Adult Medicine [address] [phone] Rosalia Wallis MA Social History Tobacco Use Types Packs/Day Years [...] AM EST documented as of this encounter Plan of Treatment Upcoming Encounters Date Type Department Care Team (Late Contact Info) Description 05/10/2025 3:30 PM EDT Office Visit Adult Medicine [address] [phone] Beata Pulliam MD [address] [place] [address] 06/13/2025 1:15 PM EDT Office Visit [address] [phone] María Welch PA [address] [place] [address] 08/15/2025 11:30 AM EDT Office Visit Adult Medicine [facility] [address] [place] [phone] Andrea Ramos MD [address] [place] [address] 08/30/2025 9:10 AM EDT Office Visit [facility] 154 [address] [facility] [address] [place] [phone] Dipak Corbett NP [address] [place] [address] 10/24/2025 10:30 AM EST Office Visit [facility] Hematology Oncology [address] [place] [address] Kusum Bess MD [address] [place] [address] 10/31/2025 10:00 AM EST Office Visit Orthopedic Surgery - [place] [address] [phone] Ruslan Lyle DPM [address] [address] documented as of this encounter Visit Diagnoses Not on filedocumented in this encounter Care Teams Director Patient Financial Services Relationship Specialty Start Date End Date Andrea Ramos MD [address] [place] [phone] PCP - General Internal Medicine 01/23/12 documented as of this encounter
--- OUTSIDE RECORDS SUMMARY | 2025-03-27 13:56 | XMS_ITS | Clinical Summary ---
Author Organization [email or web address] [facility] Address [address] [place] [address] Care Team Providers Care Soup Person Name Role Phone Andrea Ramos MD Primary Care Provider [phone] Medications Medication Sig Dispensed Refills Start Date [...] 2 (two) times a day. 0 Active bawsnuqc-fvayufvmc-upo amethamethasone (POLYDEX) [id number] OINT 0 Active insulin glargine (LANTUS) injection [...] age to complete this topic Care Teams Soup Person Relationship Specialty Start Date End Date Andrea Ramos MD PCP - General Internal Medicine 01/07/22
--- OUTSIDE RECORDS SUMMARY | 2025-03-27 13:56 | XMS_ITS | Encounter Summary ---
Author Organization [facility] Address [address] [facility] [address] [place] [address] Phone Care Team Providers Care Smoke Jumper Name Role Phone Andrea Ramos MD Primary Care Provider [phone] Encounter Details Date Type Department Care Team (Late st Contact Info) Description 05/11/2024 Documentation Only [facility] [address] [place] [address] [place], [place] [address] [place] [address] Social History Tobacco Use Types [...] Visit [facility] [address] [place] [address] German Simpson MD [address] [place] [address] [place] [phone] documented as of this encounter Visit Diagnoses Not on filedocumented in this encounter Care Teams Smoke Jumper Relationship Specialty Start Date End Date Andrea Ramos MD PCP - General 09/20/19 documented as of this encounter
--- OUTSIDE RECORDS SUMMARY | 2025-03-27 13:56 | XMS_ITS | Clinical Summary ---
Author Organization [facility] [place], Address [address] [place] [address] [place] [address] Phone Care Team Providers Care Six Color Press Operator Name Role Phone Andrea Ramos MD Primary Care Provider [phone] Allergies No known active allergies Medications apixaban [...] Nephrolithiasis 11/29/2021 10/06/2023 Overview (10/06/2023): Follows with [facility] on annual basis. Essential hypertension 02/22/2020 Microalbuminuria 02/22/2020 Type 2 diabetes mellitus 02/22/2020 Encounters Date Type Department Care Team Description 02/17/2025 Documentation Only [facility] [place], [address] [place] [address] Nataly Hernandez MA from Last 3 Months Social History Tobacco [...] Visit [facility] [place], [address] [place] [address] German Simpson MD [address] [facility] [place] [address] Health Maintenance Due Date Last Done Comments Diabetes: Ophthalmology Exam 02/06/2020 Diabetes: Pedal Pulse Checked 02/06/2020 Diabetes: Sensory Foot Exam 02/06/2020 Diabetes: Visual Foot Exam 02/06/2020 Diabetes: Hemoglobin A1C 03/02/2025 025, 01/28/2024, 10/20/2023, Additional history exists Influenza Vaccine (Season Ended) 2025 Pneumococcal Vaccine: 50+ Years Completed 11/29/2021, 08/06/2012 Pneumococcal Vaccine: Peds (0 to 5 Years) and At-Risk Patients (6 to 49 Years) Discontinued 11/29/2021, 08/06/2012 Hepatitis B Vaccine Aged Out No longe r eligible based on patient's age to complete this topic Insurance [facility] One Care Dual SNP ([id number]) [place] [phone] Care Teams Six Color Press Operator Relationship Specialty Start Date End Date Andrea Ramos MD PCP - General 09/20/19
--- OUTSIDE RECORDS SUMMARY | 2025-03-27 13:57 | XMS_ITS | Encounter Summary ---
Author Organization [facility] Address [id number] [place] [address] Care Team Providers Care Operations Intelligence Superintendent Name Role Phone Andrea Ramos MD Primary Care Provider [phone] Encounter Details Date Type Department Care Team (Late st Contact Info) Description 08/19/2024 7:06 AM EDT Hospital Encounter TH HISTORIC ENCOUNTERS EASTERN CONVERSION ONLY Giselle Walton MD [address] [place] [address] Social History Tobacco Use Types Packs/Day Years [...] of left index finger trigger finger CPT 10228 PRIMARY SURGEON: Giselle Walton MD SHOT PEENING OPERATOR SURGEON: none SHOT PEENING OPERATOR(S): Adelaida Robertson (scrub nurse), Mj Conner (circulating [...] 3:30 PM EDT Office Visit Adult Medicine [address] [phone] Beata Pulliam MD [address] [place] [address] 06/13/2025 1:15 PM EDT Office Visit Endocrinology [address] [phone] María Welch PA [address] [place] [address] 08/15/2025 11:30 AM EDT Office Visit Adult Medicine [address] [phone] Andrea Ramos MD [address] [place] [address] 08/30/2025 9:10 AM EDT Office Visit [facility] [address] [phone] Dipak Corbett WATER RESOURCES BUSINESS SEGMENT LEADER [address] [place] [address] 10/24/2025 10:30 AM EST Office Visit [facility] Hematology Oncology [address] [place] [phone] Kusum Bess MD [address] [place] [address] 10/31/2025 10:00 AM EST Office Visit Orthopedic Surgery [facility] [address] [phone] Ruslan Lyle DPM [address] [address] documented as of this encounter Visit Diagnoses Not on filedocumented in this encounter Care Teams Operations Intelligence Superintendent Relationship Specialty Start Date End Date Andrea Ramos MD [address] [place] [address] PCP - General Internal Medicine 01/23/12 documented as of this encounter
--- OUTSIDE RECORDS SUMMARY | 2025-03-27 13:57 | XMS_ITS | Data Portability ---
Author Organization [place] - Saulo Meyer [facility], [facility] Address [address] [place] [address] Assessment Encounter Date Assessment Date Assessment LastModified [...] he have continued difficulty about the knee. DS [employer] Se[employer] speech recognition pack changer software was used to create portions of [...] 15 mg tablet 2023 Favio quentin valentino [id number], [address] [place], [address], 4 14:58:27 Patient TargetsNo targets recorded. Patient [...] Organization Details Recorded Time No complaint s [id number] Active Status: 'I'; Not Available [facility] 4 09:11:58 Pain of left knee joint 572945051221 107 Active 2023 Adelaida Howard PA-C [address], [place], [address] , [facility] 4 12:38:45 Pain of right knee joint 758342563784 100 Active 2023 Adelaida Howard PA-C [address], [place], [address] , [facility] 4 12:38:54 Diabetes mellitus 67353369 Active 2023 TEE ROBERTS [facility] 4 12:21:55 Essential hypertens ion 76094375 Active 2023 SANDRA pearson [facility] 4 12:18:26 Coronary arteriosc lerosis 52054896 Active 2023 ZAMZAM pearson [place] - [facility] 12:18:47 Problem Notes None [...] Available oxycodone HCl-oxycodon e-ASA RX GIVEN AT [facility], AT TIME OF SURGERY 2017 [...] Available Not Available Not Available Dexcom G7 Strike Planning Applications USE DIRECTED active Not Available Not Available No t Available Dexcom G7 Sensor device APPLY SENSOR TOPICALLY AND CHANGE EVERY 10 DAYS active Not Available Not Available No t Available Vitals Date Recorded Body height Body mass index (BMI) Body weight Provider Name and Address Organization Details Last Updated DateTime 03/23/2024 165.1 cm 29.3 kg/m2 07323.26 g Jae Gomez PA-C [address] [facility] [address], [place], [address], [facility] 03/23/2024 13:57:09 Date Recorded Body height Body mass index (BMI) Body weight Provider Name and Address Organization Details Last Updated DateTime 08/24/2024 165.1 cm 29.3 kg/m2 53965.26 g IVAN MCPHERSON [facility] 08/24/2024 10:36:17 Date Recorded Body height Body mass index (BMI) Body weight Provider Name and Address Organization Details Last Updated DateTime 10/11/2024 165.1 cm 29.3 kg/m2 75247.26 g SUZIE MCMAHON [place] [facility] 10/11/2024 13:12:15 Social History None recorded. Functional Status None recorded. Mental Status None recorded. Family History Nothing Reported. Medical History Condition Response Coronary Artery Disease N Emphysema N COPD N Heart Trouble Y Gastrointestinal Disease N Autoimmune disease N Arthritis N Blood Clot N Acid Reflux (GERD) N Cancer N Stroke N Circulation Problems N Rheumatoid Arthritis N Arrhythmia N Headaches N Fibromyalgia N Breathing or lung disorders N Nerve Disorders N Kidney/Bladder Problems N Bleeding Disorder N AIDS/HIV N Asthma N Peripheral Vascular Disease N Hepatitis N Pulmonary Embolism N Anxiety/Depression N Pacemaker N Vascular Disease N Inflammatory Joint disease N Orthotics N Allergies/Hayfever N Thyroid Problems N Anemia N Heart Attack ([place]) N Cholesterol N Diabetes Y Seizures/Epilepsy N Congestive Heart Failure (CHF) N Sleep Apnea N Heart Disease N Hypertension Y Osteoporosis N Past Encounters Encounter ID Performer Location Encounter Start Date Encounter Closed Date Diagnosis/Indication Diagnosis SNOMED-CT Code Diagnosis ICD10 Code Diagnosis Note [id number] JOHAN Berry [address] [place] [address] 03/23/2024 13:22:45 04/15/2024 12:56:02 Postoperative care 103010670 Z48.89 Tear of me dial meniscus of knee 255111952 S83.241D [id number] MD Merry Rosen [address] [place] [address] 08/24/2024 09:42:00 09/20/2024 08:31:21 Pain of right knee joint 1876315115 15624 M25.746 [id number] JOHAN Piedra [address] [place] [address] 10/11/2024 12:58:02 10/27/2024 16:00:49 Osteoarthritis of right knee joint 2994599213 92201 M17.11 Health Concerns Section Related Observation LastModified by Organization Detai ls LastModified Time None Recorded Concern Status LastModified by Organization Details LastModified Time None Recorded Advance Directives Directive None Recorded Payers Encounter Date Sequence Insurance Name Policy Number Policy Ramos Covered Member ID Ramos Member ID Guarantor Name 08/24/2024 1 [facility] - DOS ON OR AFTER 2023 - ONE CARE (MEDICARE REPLACEMENT/ADV ANTAGE - HMO) [id number] 10/11/2024 1 [facility] - DOS ON OR AFTER 2023 - ONE CARE (MEDICARE REPLACEMENT/ADV ANTAGE - HMO) [address] [id number] [address] Notes Date Note Type Note [...] future as needed. Jae Gomez PA-C [address] [facility] [address], [place], [address], [facility] 03/23/2024 14:22:51 08/24/2024 text/html HPI: Patient [...] total knee arthroplasty techniques. Johnathon Birmingham MD [address] [place], [place] [address], [place], [address], [facility] - [facility] 08/24/2024 10:51:38
--- OUTSIDE RECORDS SUMMARY | 2025-03-27 13:57 | XMS_ITS | Encounter Summary ---
Author Organization [facility] Address [address] [facility] [address] [place] [address] Phone Care Team Providers Care Computer Systems Technician Name Role Phone Andrea Ramos MD Primary Care Provider [phone] Encounter Details Date Type Department Care Team (Late st Contact Info) Description 02/17/2025 Documentation Only [facility] [address] [place] [address] [place] [address] [place] [address] Social History Tobacco Use Types [...] Visit [facility] [address] [place] [address] German Simpson MD [address] [place] [address] [place] [address] documented as of this encounter Visit Diagnoses Not on filedocumented in this encounter Care Teams Computer Systems Technician Relationship Specialty Start Date End Date Andrea Ramos MD PCP - General 09/20/19 documented as of this encounter
--- OUTSIDE RECORDS SUMMARY | 2025-03-27 13:57 | XMS_ITS | Continuity of Care Document ---
Author Organization [place] - [facility], [facility] Address [address] [place] [address] Care Team Providers Care Piston Maker Name Role Phone RENETTA BYRNE Primary Care [...] copy of the audiogram, a list of [facility] hearing aid providers, and medical clearance for [...] cysts of skin and subcutane ous tissue 619857885 Active 2019 Other follicula r cysts of the skin and subcutane ous tissue; Note: Date Diagnosed : 0 1:41 PM (L72.8) Not Available [facility] 4 02:14:26 Monoclona l gammopath y (clinical ) 468420109 Active 2022 NARENDRA KEANE MD [address], [place], [address] , [place] - [facility] [place] 5 16:15:10 History of aortic valve replaceme nt 16118042001 00 Active 2013 NARENDRA KEANE MD [address], [place], [address] , [place] [facility] 5 16:15:10 Sciatica 18507284 Active 2021 NARENDRA KEANE MD [address], [place], [address] , [place] [facility] 5 16:15:10 Osteoarth ritis of knee 126185749 Active 2011 NARENDRA KEANE MD [address], [place], [address] , [place] [facility] 5 16:15:10 Transient cerebral ischemia 789919614 Active 2021 NARENDRA KEANE MD [address], [place], [address] , [place] [facility] 5 16:15:10 Benign prostatic hyperplas ia 054299261 Active 2021 NARENDRA KEANE MD [address], [place], [address] , [place] [facility] 5 16:15:10 Microalbu minuria 568008605 Active 2019 NARENDRA KEANE MD [address], [place], [address] , [place] [facility] 5 16:15:10 Renal disorder due to type 2 diabetes mellitus 055695283 Active 2013 NARENDRA KEANE MD [address], [place], [address] , [place] [facility] 5 16:15:10 Type 2 diabetes mellitus 74305305 Active 2019 NARENDRA KEANE MD [address] [facility] [address], [place], [address] , [place] [facility] 5 16:15:10 Chronic diastolic heart failure 084382338 Active 2021 NARENDRA KEANE MD [address] [place] [address],[place] [facility], [place], [address] , [place] [facility] 5 16:15:10 Mitral valve regurgita tion 53588016 Active 2023 NARENDRA KEANE MD [address] [place] [address],[place] [facility], [place], [address] , [place] [facility] 5 16:15:10 Atrial flutter 3534143 Active 2015 NARENDRA KEANE MD [address] [place] [address],[place] [facility], [place], [address] , [place] [facility] 5 16:15:10 Coronary arteriosc lerosis 23212186 Active 2023 NARENDRA KEANE MD [address] [place] [address],[place] [facility], [place], [address] , [place] [facility] 5 16:15:10 Hyperlipi demia 60301637 Active 2023 NARENDRA KEANE MD [address] [place] [address],[place] [facility], [place], [address] , [place] [facility] 5 16:15:10 Essential hypertens ion 04820247 Active 2011 NARENDRA KEANE MD [address] [place], [place] [address], [place], [address] , [place] [facility] 5 16:15:10 Cyst of kidney 606978254 Active 2021 NARENDRA KEANE MD [address] [place], [place] [address],[address], [place], [address] , [facility] - [facility] [place] 5 16:15:10 Chronic renal insuffici ency 367697767 Active 2023 NARENDRA KEANE MD [address] [facility],[place] [address], [place], [address] , [facility] - [facility] 5 16:15:10 Diabetes mellitus 02273432 Active 2023 NARENDRA KEANE MD [address] [facility],[place] [address], [place], [address] , [facility] - [facility] 5 16:15:10 Spinal stenosis 26220673 Active 2021 NARENDRA KEANE MD [address] [place] [address],[place] [address], [place], [address] , [facility] - [facility] [place] 16:15:10 Heart murmur 39574409 Active 2023 NARENDRA KEANE MD [address] [place] [address],[place] [address], [place], [address] , [facility] - [facility] 16:15:10 Kidney stone 55663021 Active 2021 NARENDRA KEANE MD [address] [place] [address],[place] [address], [place], [address] , [facility] - [facility] 5 16:15:10 Sensorine ural hearing loss of bilateral ears 578185360 Active 2024 KEVIN GARCIA [address] [facility],[place] [address], [place], [address] , [facility] - [facility] 5 10:18:01 Problem Notes None recorded. Procedures Surgical History Date Name Laterality Status Provider Name and Address Organization Details Recorded Time 03/23/2025 Comp Audio with Tymps - 29361 & 17523 completed KEVIN GARCIA [address] [facility],[place] [address], [place], [address], [facility] - [facility] 03/23/2025 10:17:54 Imaging Results None recorded. Procedure Notes None recorded. Medical Equipment None Reported. Allergies Allergen ID Allergen Name Allergen Category Reaction Reaction Severity Criticality Documentation Date Start Date Code Code System Note Provider Name and Address Organization Details Recorded Time 030813 No known allergy (situatio n) Not available Not available Not available Not available 03/21/2025 [id number] JONN KEANE MD [address] [place] [address], [address], [facility] 5 16:14:59 Medications Name Sig Start Date Stop [...] mg tablet 06/12 completed Medicati on ID: 140730 B rand Name: metoprol ol tartrate Send [...] mg tablet 06/12 completed Medicati on ID: 539660 B rand Name: amlodipi ne Send Method: E-Prescr ibed Sub s Allowed: subs OK Medic ationGen ericName : amlodipi ne Not Available Not Available Not Available hydralazi ne 100 mg tablet 2023 active Not Available Not Available Not Avai lable metformin 1,000 mg tablet active Medicati on ID: [id number] B rand Name: metformi n Send Method: [...] 50 mg tablet active Medicati on ID: 211688 B rand Name: spironol actone S end [...] 0.4 mg tablet active Medicati on ID: 326815 B rand Name: vitamin B complex- folic [...] ous pen injector active Medicati on ID: 050430 B rand Name: Gus gordon Send Method: E-Prescr ibed Sub s Allowed: subs OK Medic ationGen ericName : Trulicit y Not Available Not Available Not Available BD [...] Updated DateTime 03/23/2025 165.1 cm 26.6 kg/m2 91652.78 g AUDIE BURNETT [place] - [facility] 03/23/2025 10:40:55 Social History None recorded. Functional Status None recorded. Mental Status None recorded. Family History Nothing Reported. Medical History No medical history recorded. Past Encounters Encounter ID Performer Location Encounter Start Date Encounter Closed Date Diagnosis/Indication Diagnosis SNOMED-CT Code Diagnosis ICD10 Code Diagnosis Note [id number] NARENDRA KEANE MD [facility] [address] [place] [address] 03/23/2025 09:56:48 03/23/2025 10:49:32 Sensorineural hearing loss of bilateral ears 046465571 H90.3 Audiologic al evaluation results: {{Normal sloping [...] Member ID Ramos Member ID Guarantor Name 03/23/2025 1 [facility] - DOS ON OR AFTER 2023 - [facility] OPTIONS AND ONE CARE (MEDICARE REPLACEMENT/ADV ANTAGE - PPO) [address] [id number] [address] Notes Date Note Type Note Provider Name and Address Organization Details Recorded Time 03/23/2025 text/html Hearing lossesco rted by granddaughtertried hearing aids about 10 yrs ago but was not able to use the 'computer technology'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
== END 2025-03-27 14:19 | disposition home or self-care (01) ==
LOC: HO.HSMS 13:36
PROVIDERS: PCP Internal Medicine; Visit Provider Psychiatry & Neurology Neurology
DX: G62.9 Polyneuropathy, unspecified (principal); G57.31 Lesion of lateral popliteal nerve, right lower limb; M54.16 Radiculopathy, lumbar region
CPT/HCPCS: 99214

== ENCOUNTER → 2025-03-27 13:36 | Outpatient (BNVA) | payer OTHER, SELFPAY | PROVIDERS: PCP Internal Medicine; Visit Provider Psychiatry & Neurology Neurology | DX: G62.9 Polyneuropathy, unspecified (principal); M54.16 Radiculopathy, lumbar region; G57.31 Lesion of lateral popliteal nerve, right lower limb; Z79.899 Other long term (current) drug therapy | CPT/HCPCS: 99212 ==

== ENCOUNTER 2025-04-13 12:48 | Outpatient (REF) | payer OTHER, SELFPAY ==
--- OUTSIDE RECORDS SUMMARY | 2025-04-13 12:51 | XMS_ITS | Clinical Summary ---
Author Organization [facility] [place], Address [address] [place] [address] [place] [address] Phone Care Team Providers Care Circus Trainer Name Role Phone Andrea Ramos MD Primary Care Provider [phone] Allergies No known active allergies Medications apixaban [...] Nephrolithiasis 11/29/2021 10/06/2023 Overview (10/06/2023): Follows with [facility] on annual basis. Essential hypertension 02/22/2020 Microalbuminuria 02/22/2020 Type 2 diabetes mellitus 02/22/2020 Encounters Date Type Department Care Team Description 02/17/2025 Documentation Only [facility] [place], [address] [place] [address] Nataly Hernandez MA from Last 3 Months [...] Visit [facility] [place], [address] [place] [address] German Simpson MD [address] [place] [place] [address] Health Maintenance Due Date Last Done [...] patient's age to complete this topic Insurance [facility] One Care Dual SNP ([id number]) [place] [id number] Care Teams Circus Trainer Relationship Specialty Start Date End Date Andrea Ramos MD PCP - General 09/20/19
== END 2025-04-13 12:49 | disposition home or self-care (01) ==
LOC: HO.HOSX 12:48
PROVIDERS: Visit Provider Physician Assistant
DX: M17.11 Unilateral primary osteoarthritis, right knee (principal)
CPT/HCPCS: 20610; 99202; J1010; J2003

== ENCOUNTER 2025-04-13 13:29 | Outpatient (AMB) | payer MEDICARE, SELFPAY ==
--- NOTE | 2025-04-13 13:50 | A.OFFVIS_ITS ---
Vital Signs 04/13/25 14:16 Height 5 ft 5 in Weight 164 lb BMI 27.3 Intake Visit Reasons: PRODUCTION HAND - RT knee pain, MRI shows MMT Intake Note: Cecilio is a 80 year old male who presents today as a new patient with complaints of right knee pain. Patient was [facility] by [facility], MRI was performed. Patient reports he was seen at [facility] and was given an injection that did not help. Hx 3 right knee with the last one about a year ago. Has tried and failed physical therapy. MRI IMPRESSION: 1. Medial and lateral meniscal tearing. 2. Medial compartment articular cartilage loss. 3. ACL strain Allergies No Known Allergies [No Known Allergies*] Allergy (Verified 03/27/25 13:42) Medication List - Last Reconciled 04/13/25 by Ruiz Petersen PA-C alpha lipoic acid 400 mg (2 x 200 mg) PO DAILY 30 days apixaban (Eliquis) 5 mg PO BID blood sugar diagnostic (FreeStyle Lite Strips) As directed once a day dapagliflozin propanediol (Farxiga) 10 mg PO DAILY doxazosin 4 mg PO BEDTIME hydralazine 100 mg PO BID insulin glargine (Lantus U-100 Insulin) 16 units subcut BEDTIME insulin syringe-needle U-100 (BD Insulin Syringe Ultra-Fine) As directed once a day at bedtime lancets (FreeStyle Lancets) As directed once a day metoprolol tartrate 100 mg PO BID nifedipine ER 90 mg PO DAILY spironolactone 50 mg PO DAILY valsartan 160 mg PO BID vitamin B complex-folic acid 0.4 mg 1 tab PO DAILY 90 days HPI HPI PRODUCTION HAND - RT knee pain, MRI shows MMT: Details: 80-year-old gentleman presents to the office today for pain in the right knee. He states he has been having pain in the right knee for several years. He has undergone several treatment modalities such as cortisone injections, knee arthroscopies for meniscectomies along with physical therapy. He states he is at a point where his life style is significantly diminished due to the pain however he would like to avoid any type of surgery. He also mentions he has a sick at home and he needs to care for her. He ambulates with a cane. He does have diabetes in his sugars are well controlled. 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 Lumbar radiculopathy, chronic COVID-19 vaccine administered Arthritis Diabetes Aortic valvular disease HTN (hypertension) Surgical History Hx of left cataract extraction H/O colonoscopy Hx of shoulder surgery Hx of lumbar discectomy Hx of aortic valve replacement Social History Household Members: Spouse Alcohol intake: former Patient Tobacco Use Status: Former Tobacco user Review of Systems Const All systems reviewed & are unremarkable except as noted in HPI and below Physical Exam Vital Signs: BMI result Body Mass Index 27.3 Const General: cooperative and no acute distress Orientation/consciousness: patient oriented x3 Resp Effort & Inspection: normal respiratory effort and able to speak in complete sentences Cardio Peripheral pulses: Peripheral pulses 2+ throughout Neuro General: patient oriented x3 Extrem Other: Right knee skin intact, no erythema or joint effusion. Tenderness along the medial joint line. ROM full with crepitus. Negative steinmans. No ligamentous laxity. NVI. Office Procedures AMB Joint Injection/Aspiration Joint Injection/Aspiration Primary Site: right knee Prep: site was prepped using aseptic technique, ethochloride spray was applied and injection warnings given Injected: 40 mg of, DepoMedrol, with 8 mL of, 1% plain lidocaine and in the joint Approach Used: anterolateral Procedure: The patient tolerated the procedure well and there was some relief with the local anesthesia Coding 84848 - Glenohumeral/Tronchanteric Bursa/Intraarticular Procedure code (CPT) selection complete Results Reviewed Results Reviewed: MRI rt knee 01/23/25 IMPRESSION: 1. Medial and lateral meniscal tearing. 2. Medial compartment articular cartilage loss. 3. ACL strain Assessment & Plan Assessment & Plan (1) Osteoarthritis of right knee: Code(s): M17.11 - Unilateral primary osteoarthritis, right knee Category: Medical Plan: We discussed options which included continued conservative management with modification of activity, physical therapy and steroid injections. I did explain the benefits of steroid injections in reducing inflammation and helping with pain. The patient is a diabetic and he understands he would need to monitor his sugar levels if he had an injection today. After discussion, the patient consented to proceed with right knee injection which he did tolerate well. We briefly discussed the role of total knee arthroplasty however he is not interested in this. He will monitor his sugar levels over the next 72 hours and then administer increased insulin if needed. I did recommend he be seen in the emergency department if his sugars are too high and he is unable to control them. He will see me back in 4 months for follow up, sooner if needed. Coding Level of Care Code New Pt Level 3 (32678) Complex EM visit Add On G2211 Diagnoses Osteoarthritis of right knee M17.11 CPT Codes Coding - Joint 7: 29044 - Glenohumeral/Tronchanteric Bursa/Intraarticular ([id number])
[2025-04-13 14:16] VITALS: BMI 27.3
== END 2025-04-13 15:56 | disposition home or self-care (01) ==
LOC: HO.HOS 13:29
PROVIDERS: PCP Internal Medicine; Visit Provider Physician Assistant
DX: M17.11 Unilateral primary osteoarthritis, right knee (principal)
CPT/HCPCS: 20610; 99203

== ENCOUNTER 2025-08-14 10:24 | Outpatient (AMB) | payer OTHER, SELFPAY ==
--- OUTSIDE RECORDS SUMMARY | 2024-08-19 07:06 | XMS_ITS | Encounter Summary ---
Author Organization [facility] Address [address] [place] [phone] Care Team Providers Care Bicycle Messenger Name Role Phone Andrea Ramos MD Primary Care Provider [phone] Encounter Details Date Type Department Care Team (Late st Contact Info) Description 08/19/2024 7:06 AM EDT Hospital Encounter TH HISTORIC ENCOUNTERS EASTERN CONVERSION ONLY Giselle Walton MD [address] [place] [address] Social History Tobacco Use Types Packs/Day Years [...] of left index finger trigger finger CPT 66338 PRIMARY SURGEON: Giselle Walton MD COMPACTING MACHINE OPERATOR/TENDER SURGEON: none COMPACTING MACHINE OPERATOR/TENDER(S): Adelaida Robertson (scrub nurse), Mj Conner (circulating [...] visualized and incised. After release of the eguenio no triggering was found and the finger [...] Care Team (Late st Contact Info) Description 08/15/2025 11:30 AM EDT Office Visit Adult Medicine [address] [phone] Andrea Ramos MD [address] [place] [address] 08/30/2025 9:10 AM EDT Office Visit [facility] - [facility] [address] [phone] Dipak Corbett NP [address] [place] [address] [place] [phone] 09/14/2025 1:00 PM EDT Office Visit Endocrinology [address] [phone] María Welch PA [address] [place] [address] 10/24/2025 10:30 AM EST Office Visit [facility] Hematology Oncology [address] [place] [phone] Kusum Bess MD [address] [place] [address] 10/31/2025 10:00 AM EST Office Visit Orthopedic Surgery - [place] [address] [phone] Ruslan Lyle DPM [address] [phone] documented as of this encounter Visit Diagnoses Not on filedocumented in this encounter Care Teams Bicycle Messenger Relationship Specialty Start Date End Date Andrea Ramos MD [address] [place] [phone] PCP - General Internal Medicine 01/23/12 documented as of this encounter
--- NOTE | 2025-08-14 10:28 | A.OFFVIS_ITS ---
Intake Visit Reasons: OV - RT knee injection - last 04/13/25 Intake Note: Cecilio is a 80 year old male who presents today for a follow up of right knee OA, last injection 04/13/25. Patient reports last injection provided relief for about 2-3 weeks and his pain returned. He would like to dicuss other options today. Allergies No Known Allergies (No Known Allergies*) Allergy (Verified 08/14/25 10:36) Medication List - Last Reconciled 08/14/25 by Ruiz Petersen PA-C alpha lipoic acid 400 mg (2 x 200 mg) PO DAILY 30 days apixaban (Eliquis) 5 mg PO BID blood sugar diagnostic (FreeStyle Lite Strips) As directed once a day dapagliflozin propanediol (Farxiga) 10 mg PO DAILY doxazosin 4 mg PO BEDTIME hydralazine 100 mg PO BID insulin glargine (Lantus U-100 Insulin) 16 units subcut BEDTIME insulin syringe-needle U-100 (BD Insulin Syringe Ultra-Fine) As directed once a day at bedtime lancets (FreeStyle Lancets) As directed once a day metoprolol tartrate 100 mg PO BID nifedipine ER 90 mg PO DAILY spironolactone 50 mg PO DAILY valsartan 160 mg PO BID vitamin B complex-folic acid 0.4 mg 1 tab PO DAILY 90 days HPI HPI OV - RT knee injection - last 04/13/25: Details: 80-year-old gentleman returns to the office today for a follow-up right knee pain. He last saw me in March of 2025 where he had an injection. He states the injection only lasted about 2-3 weeks. He continues to have discomfort along the medial and anterior portion of the knee. He has discomfort with stairs. 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 Lumbar radiculopathy, chronic COVID-19 vaccine administered Arthritis Diabetes Aortic valvular disease HTN (hypertension) Surgical History Hx of left cataract extraction H/O colonoscopy Hx of shoulder surgery Hx of lumbar discectomy Hx of aortic valve replacement Social History Household Members: Spouse Alcohol intake: former Patient Tobacco Use Status: Former Tobacco user Review of Systems Const All systems reviewed & are unremarkable except as noted in HPI and below Physical Exam Const General: cooperative and no acute distress Orientation/consciousness: patient oriented x3 Resp Effort & Inspection: normal respiratory effort and able to speak in complete sentences Cardio Peripheral pulses: Peripheral pulses 2+ throughout Neuro General: patient oriented x3 Extrem Other: Right knee skin intact, no erythema or joint effusion. Tenderness along the m edial joint line. ROM full with crepitus. Negative steinmans. No ligamentous laxity. NVI. Assessment & Plan Assessment & Plan (1) Osteoarthritis of right knee: Code(s): M17.11 - Unilateral primary osteoarthritis, right knee Category: Medical Plan: The patient is interested in other treatment modalities that may casting room helper in his discomfort but also improve his daily activities. He is not interested in steroid injections. I did explain to him the benefits and role of gel injections. He would like to try this therefore a prior Auth will be sent for right knee gel injections. We will contact the patient once this has been approved. Orders: Orders XR knee RT 3V Today M17.11 - Unilateral primary osteoarthritis, right knee Coding Level of Care Code Est Pt Level 3 (64077) Complex EM visit Add On G2211 Diagnoses Osteoarthritis of right knee M17.11
--- OUTSIDE RECORDS SUMMARY | 2025-08-14 11:37 | XMS_ITS | Clinical Summary ---
Author Organization [facility] Address [address] [place] [address] Care Team Providers Care Scale Manager Name Role Phone Andrea Ramos MD Primary Care Provider [phone] Medications Medication Sig Dispensed Refills Start Date [...] 2 (two) times a day. 0 Active znoyaesa-vdozktgtz-luw amethamethasone (POLYDEX) 3.5-56105-0.1 OINT 0 Active insulin glargine (LANTUS) injection [...] 76 02/15/2024 9:25 AM EDT Temperature 36.1 C (97 F) 02/15/2024 9:25 AM EDT Respiratory Rate - [...] 1-dose 75+ series) 2022 Influenza Vaccine (#1) 2025 09/24/2007 Pneumococcal Vaccine Completed 11/29/2021, 08/06/2012 Hepatitis B Vaccines Aged Out No long er eligible based on patient's age to complete this topic RSV Ped < 20 months Aged Out No longe r eligible based on patient's age to complete this topic Care Teams Scale Manager Relationship Specialty Start Date End Date Andrea Ramos MD PCP - General Internal Medicine 01/07/22
--- OUTSIDE RECORDS SUMMARY | 2025-08-14 11:38 | XMS_ITS | Clinical Summary ---
Author Organization [address] [facility] Address [address] [place] [address] Phone Care Team Providers Care Boiler/Chiller Technician Name Role Phone Andrea Ramos MD Primary Care Provider [phone] Allergies No known active allergies Medications insulin lispro 100 unit/mL injection Inject 3 times a day with meals per sliding scale: 100-149: 8 units; 150-200: 10 units; 201-250: 11 units; 251-300: 12 units; 301-350:13 units; 351-400: 15 units, DINNER - 2 UNITS 45 mL 5 12/02/19 25 Active doxazosin (CARDURA) 4 mg tablet Take 1 tablet (4 mg total) by mouth at bedtime. 90 tablet 2 01/31/20 25 Active NIFEdipine XL (PROCARDIA XL) 90 mg 24 hr tablet Take 1 tablet (90 mg total) by mouth 1 (one) time each day. 90 tablet 2 01/31/20 25 Active FreeStyle Lancets 28 gauge lancets USE TO CHECK BLOOD SUGAR TWO TIMES A DAY (BULK) 200 each 1 02/04/20 25 Active multivit-production miner als/folic acid (CENTRUM ADULT 50 PLUS ORAL) [...] (low blood sugar). - Subcutaneous 0.2 mL 11 02/17/20 25 Active rosuvastatin (CRESTOR) 10 mg [...] ^1R1,1R3 60 tablet 5 03/21/20 25 Active blood sugar diagnostic (FreeStyle Lite Strips) test stripIndicatio ns:Type 2 diabetes mellitus with diabetic microalbuminur ia, with long-term current use of insulin ([facility] V24, [facility] V28) USE TO TEST BLOOD SUGAR THREE TIMES A DAY 200 strip 04/17/20 25 Active insulin glargine (LANTUS) 100 unit/mL injection 26 units sc at bedtime 10 mL 06/13/20 25 Active Farxiga 10 mg tablet TAKE ONE TABLET BY MOUTH EVERY DAY ^1R1 30 tablet 06/21/20 25 Active tamsulosin (FLOMAX) 0.4 mg 24 hr capsule TAKE ONE CAPSULE BY MOUTH EVERY DAY 30 MINUTES AFTER THE SAME MEAL EACH DAY ^1R3 30 capsule 1 06/21/20 25 Active BD SafetyGlide Insulin Syringe 1 mL 29 gauge x 1/2 syringe USE ONCE DAILY TO INJECT LANTUS INSULIN (BULK) 300 each 07/21/20 25 Active B complex tablet TAKE ONE TABLET BY MOUTH EVERY DAY ^1R1 30 tablet 07/21/20 25 Active valsartan (DIOVAN) 160 mg tablet TAKE 1 TABLET BY MOUTH 1 TIME EACH DAY. 90 tablet 07/31/20 25 Active B complex tablet TAKE ONE TABLET BY MOUTH EVERY DAY ^1R 30 tablet 02/10/20 25 025 Discontinued insulin syringe,safety needle (BD SafetyGlide Insulin Syringe) 1 mL 29 gauge x 1/2 syringe Inject 1 each under the skin 3 (three) times a day. Use to inject lantus and humalog tid 300 each 1 02/08/20 25 025 Discontinued valsartan (DIOVAN) 160 mg tablet TAKE 1 TABLET BY MOUTH 1 TIME EACH DAY. 90 tablet 05/01/20 25 025 Discontinued valsartan (DIOVAN) 160 mg tablet TAKE ONE TABLET BY MOUTH EVERY DAY ^1R3 30 tablet 07/21/20 25 025 Discontinued Active Problems Problem Noted Date Diagnosed Date HLD (hyperlipidemia) 11/06/2024 Chronic renal impairment 07/25/2024 Diabetes mellitus ([facility] V24, [facility] V28) Overview (11/06/2024): TEE ROBERTS Monoclonal gammopathy [...] taking it. An EMG was performed at [place] and a lumbar spine MRI performed and [...] stenosis 08/18/2022 Chronic diastolic congestive heart failure ([facility] V24, [facility] V28) 03/07/2022 Overview (11/06/2024): -In spite of [...] 11/29/2021 Nephrolithiasis 11/29/2021 Overview (11/06/2024): Follows with [facility] on annual basis. Renal cyst 11/29/2021 Type 2 diabetes mellitus ([facility] V24, [facility] V 28) 02/22/2020 Microalbuminuria 02/22/2020 Atrial flutter ([facility] V24, [facility] V28) 2015 Overview (11/06/2024): - Chronic, likely [...] (diabetes mellitus), type 2 with renal complications ([facility] V24, [facility] V28) 12/28/2013 Overview (11/06/2024): Microalbumin 263 on [...] Heart murmur 11/06/2024 02/16/2025 Mitral regurgitation 11/06/2024 04/2 025 Coronary arteriosclerosis 02/12/2024 Overview (11/06/2024): ELIQUIS Encounters Date Type Department Care Team Description 06/13/2025 1:15 PM EDT Office Visit Endocrinology [address] [phone] María Welch PA Type 2 diabetes mellitus with diabetic microalbuminuria, with long-term current use of insulin ([facility] V24, [facility] V28) (Primary Dx) 06/06/2025 Telephone Adult Medicine [address] [phone] Andrea Ramos MD 05/29/2025 Telephone Adult Medicine [address] [phone] Andrea Ramos MD from Last 3 Months Surgical History Surgery Date Site/Laterality Comments LUMBAR LAMINECTOMY 2006 PROCEDURE: HISTORICAL LUMB LAMINECTOMY; COMMENT: Dr. Grimes, L4-5, L5-S1 decompression HAND SURGERY PROCEDURE: HISTORICAL HAND SURGERY; COMMENT: left 3trd trigger COLONOSCOPY 03/02/2014 PROCEDURE: HISTORICAL COLONOSCOPY; COMMENT: normal; would not repeat CATARACT EXTRACTION 2020 Bilateral PROCEDURE: HISTORICAL CATARACT REMOVAL OTHER SURGICAL HISTORY 2016 PROCEDURE: IN RPLCMT AORTIC VALVE ANNULUS ENLGMENT NONC SINUS KNEE SURGERY 2016 Right PROCEDURE: HISTORICAL KNEE SURGERY SHOULDER SURGERY 1990 Right PROCEDURE: HISTORICAL SHOULDER SURGERY MECHANICAL AORTIC VALVE REPLACMENT AND MITRAL VALVE REPAIR N/A TRIGGER FINGER RELEASE 08/19/2024 Left TRIGGER FINGER RELEASE 09/30/2024 Right Medical History Medical History Date Comments HTN (hypertension) 02/18/2012 DX:HTN (hyper tension) DM type 2 (diabetes mellitus , type 2) ([facility] V24, [facility] V28) 02/18/2012 DX:DM type 2 (diabetes dez itus, type 2) ([facility]) Historical Medical DX 02/18/2012 DX:Hyperli pidemia LDL goal < 70 OA (osteoarthritis) of knee 10/21/2012 DX:O A (osteoarthritis) of knee; COMMENT: right knee Atrial fibrillation, chronic (CMS/HCC V24, CMS/HCC V28) 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 Hyperlipidemia Heart [...] Sign Reading Time Taken Comments Blood Pressure 136/60 06/13/2025 1:13 PM EDT Pulse 78 06/13/2025 1:13 PM EDT Temperature 36.1 C (96.9 F) 06/13/2025 1:13 PM EDT Respiratory Rate 18 01/30/2025 11:29 AM EDT Oxygen Saturation 99% 03/10/2025 2:22 PM EDT Inhaled Oxygen Concentration - - Weight 76 kg (167 lb 9.6 oz) 06/13/2025 1:13 PM EDT Height 165.1 cm (5' 5 ) 06/13/2025 1:13 PM EDT Body Mass Index 27.89 06/13/2025 1:13 PM EDT Plan of Treatment Upcoming Encounters Date Type Department Care Team (Late st Contact Info) Description 08/15/2025 11:30 AM EDT Office Visit Adult Medicine [address] [phone] Andrea Ramos MD [address] [place] [address] 08/30/2025 9:10 AM EDT Office Visit [facility] [address] [facility] [address] [place] [phone] Dipak Corbett, [address] [place] [phone] 09/14/2025 1:00 PM EDT Office Visit Endocrinology [facility] [address] [place] [phone] María Welch PA [address] [place] [address] 10/24/2025 10:30 AM EST Office Visit [facility] Hematology Oncology [address] [place] [phone] Kusum Bess MD [address] [place] [address] 10/31/2025 10:00 AM EST Office Visit Orthopedic Surgery [facility] [address] [facility] [address] [place] [phone] Ruslan Lyle, DPM [address] [phone] Health Maintenance Due Date Last Done Comments Diabetes: Annual Foot Exam 1957 Diabetes: Annual Retina Eye Exam 1957 Zoster Vaccines (1 of 2) 1966 RSV Immunization Adult Patients (1 - 1-dose 75+ series) 2022 Falls Risk Assessment 10/24/2022 Hepatitis C Screening 10/24/2022 Medicare Annual Wellness Visit 10/24/2022 Social Influencers of Health Screening 10/24/2022 Depression Screening 11/16/2024 COVID-19 Vaccine ( season) 2025 09/15/2022, 09/13/2021, 03/07/2021, Additional history exists Influenza Vaccine (#1) 2025 09/24/2007 Diabetes: Annual Urine Albumin-Creatinine Ratio (uACR) 12/02/2025 12/02/2024 Diabetes: Blood Sugar Control Test (HGBA1C) 12/14/2025 06/13/2025, 03/10/2025, 12/02/2024, Additional history exists Diabetes: Annual GFR (Glomerular Filtration Rate) 03/10/2026 [...] Date/Time Associated Diagnosis Comments HEMOGLOBIN A1C Routine 06/13/2025 1:59 PM EDT Type 2 diabetes mellitus with diabetic microalbuminuria, with long-term current use of insulin ([facility] V24, [facility] V28) POC GLUCOSE Routine 06/13/2025 1:16 PM EDT Type 2 diabetes mellitus with diabetic microalbuminuria, with long-term current use of insulin ([facility] V24, [facility] V28) COMPREHENSIVE METABOLIC PANEL Routine 03/10/2025 2:59 PM EDT IgG monoclonal gammopathy MICROALBUMIN CREATININE URINE RATIO Routine 12/02/2024 1:40 PM EST Type 2 diabetes mellitus with other specified complication, unspecified whether penitentiary insulin use ([facility] V24, [facility] V28) LIPID PANEL WITH REFLEX TO DIRECT LDL Routine 12/02/2024 1:40 PM EST Type 2 diabetes mellitus with other specified complication, unspecified whether penitentiary insulin use ([facility] V24, [facility] V28) from Last 3 Months or Most Recently Relevant to Health Maintenance Results * (ABNORMAL) Hemoglobin A1c (06/13/2025 1:59 PM EDT) Hemoglobin A1C 7.0(H) <6.5 % LAB CHEMISTRY METHOD 06/13/2025 9:26 PM EDT [facility] Mean Bld Glu Estim. 154 mg/dL LAB CHEMISTRY METHOD 06/13/2025 9:26 PM EDT [facility] Blood Venous blood specimen / Unknown Venipuncture / Unknown 06/13/2025 1:59 PM EDT 06/13/2025 1:59 PM EDT us María PERRY LAB BLOOD ORDERABLES Final Result [facility] [address] [place] [address], [place] [phone] * POC glucose manually resulted (06/13/2025 1:16 PM EDT) Glucose POC 383 mg/dL Blood Capillary blood specimen / Unknown 06/13/2025 1:16 PM EDT María PERRY POINT OF CARE TEST ENTER/ED IT ORDERABLES Final Result * (ABNORMAL) Comprehensive metabolic panel (03/10/2025 2:59 PM EDT) Sodium 134 133 - 145 mmol/L LAB CHEMISTRY METHOD 03/10/2025 6:37 PM [facility] Potassium 4.2 3.5 - 5.5 mmol/L LAB CHEMISTRY METHOD 03/10/2025 6:37 PM [facility] Chloride 99 96 - 110 mmol/L LAB CHEMISTRY METHOD 03/10/2025 6:37 PM [facility] CO2 26 21 - 32 mmol/L LAB CHEMISTRY METHOD 03/10/2025 6:37 PM [facility] Anion Gap 9 3 - 11 LAB CHEMISTRY METHOD 03/10/2025 6:37 PM [facility] Glucose 257(H) 70 - 100 mg/dL LAB CHEMISTRY METHOD 03/10/2025 6:37 PM [facility] BUN 27(H) 5 - 25 mg/dL LAB CHEMISTRY METHOD 03/10/2025 6:37 PM [facility] Creatinine 1.65(H) 0.70 - 1.30 mg/dL LAB CHEMISTRY METHOD 03/10/2025 6:37 PM [facility] eGFR 42(L) >=60 mL/min/1. 73m2 LAB CHEMISTRY METHOD 03/10/2025 6:37 PM [facility] Comment:Calculation based on the Chronic Kidney Disease Epidemiology Collaboration (CKD-EPI) equation refit without adjustment for race. BUN/Creatinine Ratio 16.4 LAB CHEMISTRY METHOD 03/10/2025 6:37 PM [facility] Calcium 9.5 8.5 - 10.5 mg/dL LAB CHEMISTRY METHOD 03/10/2025 6:37 PM [facility] AST (SGOT) 13 10 - 42 unit/L LAB CHEMISTRY METHOD 03/10/2025 6:37 PM [facility] ALT (SGPT) 17 10 - 60 unit/L LAB CHEMISTRY METHOD 03/10/2025 6:37 PM EDT [facility] Alkaline Phosphatase 69 42 - 121 unit/L LAB CHEMISTRY METHOD 03/10/2025 6:37 PM EDT [facility] Total Protein 8.2(H) 6.0 - 8.0 g/dL LAB CHEMISTRY METHOD 03/10/2025 6:37 PM EDT [facility] Albumin 3.8 3.2 - 5.0 g/dL LAB CHEMISTRY METHOD 03/10/2025 6:37 PM EDT [facility] Total Bilirubin 0.5 0.0 - 1.4 mg/dL LAB CHEMISTRY METHOD 03/10/2025 6:37 PM EDT [facility] Blood Venous blood specimen / Unknown Venipuncture / Unknown 03/10/2025 2:59 PM EDT 03/10/2025 2:59 PM EDT us Kusum Bess MD LAB BLOOD ORDERABLES Final R esult [facility] [address] [place] [address], * Lipid panel with reflex to direct LDL (12/02/2024 1:40 PM EST) Cholesterol 122 0 - 200 mg/dL LAB CHEMISTRY METHOD 12/02/2024 10:46 PM EST [facility] Triglycerides 107 0 - 150 mg/dL LAB CHEMISTRY METHOD 12/02/2024 10:46 PM EST [facility] HDL 63 >=40 mg/dL LAB CHEMISTRY METHOD 12/02/2024 10:46 PM EST [facility] LDL Calculated 38 0 - 100 mg/dL LAB CHEMISTRY METHOD 12/02/2024 10:46 PM EST [facility] VLDL Cholesterol Hipolito 21.4 mg/dL LAB CHEMISTRY METHOD 12/02/2024 10:46 PM EST [facility] Non HDL Chol. (LDL+VLDL) 59 <145 mg/dL LAB CHEMISTRY METHOD 12/02/2024 10:46 PM EST [facility] Chol/HDL Ratio 1.9 0.0 - 4.4 LAB CHEMISTRY METHOD 12/02/2024 10:46 PM EST [facility] Blood Venous blood specimen / Unknown Venipuncture / Unknown 12/02/2024 1:40 PM EST 12/02/2024 1:40 PM EST María PERRY LAB BLOOD ORDERABLES Final Result Performing Organization Address City/[facility]/ZIP Co de Phone Number [facility] [address] [place] [address], [place] [phone] * (ABNORMAL) Microalbumin creatinine urine ratio (12/02/2024 1:40 PM EST) Creatinine, Urine 114.0 mg/dL LAB CHEMISTRY METHOD 12/02/2024 11:25 PM EST [facility] Microalb, Ur 450.0(H) 0.0 - 29.0 mg/L LAB CHEMISTRY METHOD 12/02/2024 11:25 PM EST [facility] Microalb/Crea t Ratio 395(H) <30 mg/g creat LAB CHEMISTRY METHOD 12/02/2024 11:25 PM EST [facility] Urine Urine specimen from urethra / Unknown Non-blood Collection / Unknown 12/02/2024 1:40 PM EST 12/02/2024 1:40 PM EST María PERRY LAB URINE ORDERABLES Final Result Performing Organization Address [facility]/ZIP Co de Phone Number [facility] [address] [place] [address], [place] [phone] from Last 3 Months or Most Recently Relevant to Health Maintenance Insurance [employer] Member Subscriber Plan / Payer (Ef fective 2016-Present) Name:Domingo Cecilio Relation to Subscriber:Self Name:Cecilio Lane Payer ID:[id number] Group ID:[id number] Type:Not on file Address: [place] [address] [address] [phone] Care Teams Boiler/Chiller Technician Relationship Specialty Start Date End Date Andrea Ramos MD [address] [place] [phone] PCP - General Internal Medicine 01/23/12
--- OUTSIDE RECORDS SUMMARY | 2025-08-14 11:38 | XMS_ITS | Encounter Summary ---
Author Organization [facility] Address [address] [place] [address] Care Team Providers Care Corporate Driver Name Role Phone Andrea Ramos MD Primary Care Provider [phone] Encounter Details Date Type Department Care Team (Late st Contact Info) Description 04/06/2025 Lab Requisition [facility] - Main Lab [address] [facility] [place] [phone] Sourav Mclain MD [address] [place] [phone] Malignant neoplasm of prostate (CMS/HCC V24, CMS/HCC V28) Social History Tobacco Use Types Packs/Day Years [...] 11:30 AM EDT Office Visit Adult Medicine [address] [phone] Andrea Ramos MD [address] [place] [address] 08/30/2025 9:10 AM EDT Office Visit [facility] [address] [facility] 154 [place] [phone] Dipak Corbett, DONNA [address] [place] [address] [place] [address] 09/14/2025 1:00 PM EDT Office Visit Endocrinology [id number] [place] [address] María Welch PA [address] [place] [address] 10/24/2025 10:30 AM EST Office Visit [facility] Hematology Oncology [address] [place] [phone] Kusum Bess MD [address] [place] [address] 10/31/2025 10:00 AM EST Office Visit Orthopedic Surgery [facility] 250 [address] [facility] 250 [place] [phone] Ruslan Lyle DPM [address] [phone] documented as of this encounter Procedures Procedure Name Priority Date/Time Associated Diagnosis Comments AP OUTSIDE CONSULT Routine 04/04/2025 Malignant neoplasm of prostate (CMS/HCC V24, CMS/[facility] V28) documented in this encounter Results * Anatomic pathology outside consult (04/04/2025) Final Diagnosis A. Prostate, Left Mid [place] Biopsy: - Benign prostatic tissue. B. Prostate, Left Lat [place] Biopsy: - Benign prostatic tissue. C. Prostate, Left Mid Mid Biopsy: - Benign prostatic tissue. D. Prostate, Left Lat Mid Biopsy: - Benign prostatic tissue. E. Prostate, Left Mid Base Biopsy: - Benign prostatic tissue. F. Prostate, Left Lat Base Biopsy: - Benign prostatic tissue. G. Prostate, Left Transition Zone Biopsy: - Prostatic acinar adenocarcinoma (conventional type), grade group 1 (Billy score 3+3=6). - Tumor continuously involves 40% of overall tissue, present in 3 of 3 tissue cores. H. Prostate, Right Mid [place] Biopsy: - Benign prostatic tissue. I. Prostate, Right Lat [place] Biopsy: - Benign prostatic tissue. J. Prostate, Left Mid Mid Biopsy: - Benign prostatic tissue. K. Prostate, Left Lat Mid Biopsy: - Benign prostatic tissue. L. Prostate, Left Mid Base Biopsy: - Benign prostatic tissue. M. Prostate, Left Lat Base Biopsy: - Benign prostatic tissue. 04/13/2025 1:11 PM EDT [facility] Clinical Information Prostate Cancer C61 Last PSA total = 16.1 (02/23/2025) [id number] 04/13/2025 1:11 PM EDT [facility] Gross Description A. Prostate, Left Mid [place] Biopsy: Received, properly labeled, are two H and E stained slides and two unstained slides. B. Prostate, Left Lat [place] Biopsy: Received, properly labeled, are two H and E stained slides and two unstained slides. C. Prostate, Left Mid Mid Biopsy: Received, properly labeled, are two H and E stained slides and two unstained slides. D. Prostate, Left Lat Mid Biopsy: Received, properly labeled, are two H and E stained slides and two unstained slides. E. Prostate, Left Mid Base Biopsy: Received, properly labeled, are two H and E stained slides and two unstained slides. F. Prostate, Left Lat Base Biopsy: Received, properly labeled, are two H and E stained slides and two unstained slides. G. Prostate, Left Transition Zone Biopsy: Received, properly labeled, are two H and E stained slides and two unstained slides. H. Prostate, Right Mid [place] Biopsy: Received, properly labeled, are two H and E stained slides and two unstained slides. I. Prostate, Right Lat [place] Biopsy: Received, properly labeled, are two H and E stained slides and two unstained slides. J. Prostate, Left Mid Mid Biopsy: Received, properly labeled, are two H and E stained slides and two unstained slides. K. Prostate, Left Lat Mid Biopsy: Received, properly labeled, are two H and E stained slides and two unstained slides. L. Prostate, Left Mid Base Biopsy: Received, properly labeled, are two H and E stained slides and two unstained slides. M. Prostate, Left Lat Base Biopsy: Received, properly labeled, are two H and E stained slides and two unstained slides. /al 04/13/2025 1:11 PM EDT [facility] Disclaimer Unless otherwise specified, all tissue is 10% NB formalin fixed and paraffin embedded. Technical pathology services provided by [facility] at [address] [place] [address] [address], [place] [address] (CLIA #[id number]/Nancy Corley MD, Financial Rep) 04/13/2025 1:11 PM EDT [facility] Tissue Prostate / Unknown 04/04/20252024 12:58 PM EDT Tissue specimen (specimen) Prostate / Unknown 04/04/2025 04/06/2025 12 :58 PM EDT Tissue specimen (specimen) Prostate / Unknown 04/04/2025 04/06/2025 12 :58 PM EDT Tissue specimen (specimen) Prostate / Unknown 04/04/2025 04/06/2025 12 :58 PM EDT Tissue specimen (specimen) Prostate / Unknown 04/04/2025 04/06/2025 12 :58 PM EDT Tissue specimen (specimen) Prostate / Unknown 04/04/2025 04/06/2025 12 :58 PM EDT Tissue specimen (specimen) Prostate / Unknown 04/04/2025 04/06/2025 12 :58 PM EDT Tissue specimen (specimen) Prostate / Unknown 04/04/2025 04/06/2025 12 :58 PM EDT Tissue specimen (specimen) Prostate / Unknown 04/04/2025 04/06/2025 12 :58 PM EDT Tissue specimen (specimen) Prostate / Unknown 04/04/2025 04/06/2025 12 :58 PM EDT Tissue specimen (specimen) Prostate / Unknown 04/04/2025 04/06/2025 12 :58 PM EDT Tissue specimen (specimen) Prostate / Unknown 04/04/2025 04/06/2025 12 :58 PM EDT Tissue specimen (specimen) Prostate / Unknown 04/04/2025 04/06/2025 12 :58 PM EDT us Sourav Mclain MD LAB PATHOLOGY ORDERABLES Final Result [facility] [address] [place] [address], documented in this encounter Visit Diagnoses Diagnosis Malignant neoplasm of prostate (CMS/HCC V24, CMS/HCC V28) Malignant neoplasm of prostate documented in this encounter Care Teams Corporate Driver Relationship Specialty Start Date End Date Andrea Ramos MD [address] [place] [address] PCP - General Internal Medicine 01/23/12 documented as of this encounter
--- OUTSIDE RECORDS SUMMARY | 2025-08-14 11:38 | XMS_ITS | Data Portability ---
Author Organization ERIC - Saulo Meyer [facility] [place] [place] [facility] Address [address] [place] [address] Assessment Encounter Date Assessment Date Assessment LastModified [...] noted, no gross instability. Range of motion to-115 . Calf is soft. Impression: Right knee arthritis [...] he have continued difficulty about the knee. [employer] speech recognition door paneler software was used to create portions of this document. An attempt at proofreading has been made to minimize errors. Please call for corrections. [email or web address] Not available 10/11/2024 13:55:48 Plan of Treatment Reminders Order Date Submit Date Provider Last Modified By Organization Details Last Modified Time Details Appointments None recorded. Lab None recorded. Referral None recorded. Procedures None recorded. Surgeries None recorded. Imaging None recorded. Medication Orders meloxicam 15 mg tablet 2023 Favio quentin valentino [id number], [address] [place], [address], 14:58:27 Patient TargetsNo targets recorded. Patient InstructionsNo [...] Organization Details Recorded Time No complaint s [id number] Active Status: 'I'; Not Available [facility] 4 09:11:58 Diabetes mellitus 69670011 Active 2023 TEE ROBERTS [facility] 4 12:21:55 Essential hypertens ion 98265621 Active 2023 SANDRA pearson [facility] 4 12:18:26 Coronary arteriosc lerosis 46868288 Active 2023 ZAMZAM pearson [facility] 4 12:18:47 Pain of left knee joint 582534902769 107 Active 2023 JOHAN [address], [facility] [place], [address] , [facility] 4 12:38:45 Pain of right knee joint 281119255273 100 Active 2023 JOHAN [address], [place], [address] , [facility] 4 12:38:54 Problem Notes None recorded. Medical Equipment None [...] Available oxycodone HCl-oxycodon e-ASA RX GIVEN AT [facility], AT TIME OF SURGERY 2017 active [...] G BY MOUTH NEEDED FOR (HYPOGLYCEM IA, EITAN BAJA active Not Available Not Available No [...] Available Not Available Not Available Dexcom G7 Oracle Programmer USE DIRECTED active Not Available Not Available No t Available Dexcom G7 Sensor device APPLY SENSOR TOPICALLY AND CHANGE EVERY 10 DAYS active Not Available Not Available No t Available Vitals Date Recorded Body height Body mass index (BMI) Body weight Provider Name and Address Organization Details Last Updated DateTime 03/23/2024 165.1 cm 29.3 kg/m2 12998.26 g Jae Gomez PA-C [address] [facility] [address], [place], [address], [facility] 03/23/2024 13:57:09 Date Recorded Body height Body mass index (BMI) Body weight Provider Name and Address Organization Details Last Updated DateTime 08/24/2024 165.1 cm 29.3 kg/m2 09614.26 g IVAN MCPHERSON [facility] 08/24/2024 10:36:17 Date Recorded Body height Body mass index (BMI) Body weight Provider Name and Address Organization Details Last Updated DateTime 10/11/2024 165.1 cm 29.3 kg/m2 83137.26 g SUZIE MCMAHON [facility] 10/11/2024 13:12:15 Social History None recorded. Functional Status None recorded. Mental Status None recorded. Family History Nothing Reported. Medical History Condition Response Allergies/Hayfever N Coronary Artery Disease N Breathing or lung disorders N Anxiety/Depression N Emphysema N Nerve Disorders N Thyroid Problems N COPD N Pacemaker N Kidney/Bladder Problems N Anemia N Vascular Disease N Heart Trouble Y Heart Attack ([place]) N Gastrointestinal Disease N Cholesterol N Diabetes [...] Diagnosis SNOMED-CT Code Diagnosis ICD10 Code Diagnosis IMO Codes Diagnosis Note [id number] JOHAN Berry [address] [place] [address] 03/23/2024 13:22:45 04/15/2024 12:56:02 Postoperative care 829528526 Z48.89 Tear of me dial meniscus of knee 910971691 S83.241D [id number] MD Merry Rosen [address] [place] [address] 08/24/2024 09:42:00 09/20/2024 08:31:21 Pain of right knee joint 9559217868 99752 M25.602 [id number] JOHAN Piedra [address] [place] [address] 10/11/2024 12:58:02 10/27/2024 16:00:49 Osteoarthritis of right knee joint 9943997498 03989 M17.11 [id number] Health Concerns Section Related Observation LastModified by Organization Detai ls LastModified Time None Recorded Concern Status LastModified by Organization Details LastModified Time None Recorded Advance Directives Directive None Recorded Payers Insurance Date Sequence Insurance Name Policy Number Policy Ramos Covered Member ID Ramos Member ID Guarantor Name 10/27/2024 1 [facility] - DOS ON OR AFTER 2023 - ONE CARE (MEDICARE REPLACEMENT/ADV ANTAGE - HMO) Cecilio Sotelo Colon [id number] Notes Date Note Type Note [...] the future as needed. Jae Gomez PA-C [address] [place] [address] [address], [place], [address], [facility] 03/23/2024 14:22:51 08/24/2024 text/html HPI: Patient is in for recheck of right knee pain. Patient is approximately 6 months status post knee arthroscopy, found to have a medial meniscus tear with grade 4 changes trochlea. States continues have some discomfort about the medial compartment of the medial compartment of the knee. Sharp shooting discomfort is now gone but will get pain with increased ambulation and physical activity. No new injury. Past family, medical, social history and review of systems has been reviewed, updated and is located in the patient s chart. Examination:The patient is well appearing and in no apparent distress. Alert and oriented x3. Gait is symmetric. Vital signs per nurse's intake.Examination of the right knee reveals well-healing surgical incision, no effusion erythema or warmth. Range of motion from 0-125 of knee flexion. No instability to varus or valgus stress tests at 0 or 30 degrees. medial joint line tenderness. -Patella tenderness. - lachmans,- McMurrays. Calf soft and nontender.5/5 strength of knee flexion extension. Moderate right trochanteric bursitis Impression: 6 months status post right knee arthroscopy Plan: Nature of the diagnosis [...] total knee arthroplasty techniques. Johnathon Birmingham MD [address] [place] [address] [address], [place], [address], [facility] 08/24/2024 10:51:38
== END 2025-08-14 11:11 | disposition home or self-care (01) ==
PROVIDERS: PCP Internal Medicine; Visit Provider Physician Assistant
DX: M17.11 Unilateral primary osteoarthritis, right knee (principal)
CPT/HCPCS: 99213; G2211

== ENCOUNTER → 2025-08-14 10:50 | Outpatient (BNV) | payer OTHER, SELFPAY | PROVIDERS: Visit Provider Radiology Diagnostic Radiology | DX: M11.261 Other chondrocalcinosis, right knee (principal) | CPT/HCPCS: 73562 ==

== ENCOUNTER 2025-08-14 11:19 | Outpatient (REF) | payer OTHER, SELFPAY ==
--- OUTSIDE RECORDS SUMMARY | 2024-08-19 07:06 | XMS_ITS | Encounter Summary ---
Author Organization [facility] Address [address] [place] [phone] Care Team Providers Care Contracting Support Specialist Name Role Phone Andrea Ramos MD Primary Care Provider [phone] Encounter Details Date Type Department Care Team (Late st Contact Info) Description 08/19/2024 7:06 AM EDT Hospital Encounter TH HISTORIC ENCOUNTERS EASTERN CONVERSION ONLY Giselle Walton MD [address] [place] [address] Social History Tobacco Use Types Packs/Day Years [...] of left index finger trigger finger CPT 08847 PRIMARY SURGEON: Giselle Walton MD PERSONAL LOAN SPECIALIST SURGEON: none PERSONAL LOAN SPECIALIST(S): Adelaida Robertson (scrub nurse), Mj Conner (circulating [...] Care Team (Late st Contact Info) Description 08/30/2025 9:10 AM EDT Office Visit [facility] - [facility] 154 300 [facility] [address] [place] [address] Dipak Corbett NP [address] [place] [address] Dr Macias [address] [place] [address] 09/14/2025 1:00 PM EDT Office Visit Endocrinology [address] [phone] María Welch PA [address] [place] [address] 10/24/2025 10:30 AM EST Office Visit [facility] Hematology Oncology [address] [place] [phone] Kusum Bess MD [address] [place] [address] 10/31/2025 10:00 AM EST Office Visit Orthopedic Surgery [facility] [address] [phone] Ruslan Lyle DPJanett [address] [phone] 02/19/2026 9:45 AM EDT Office Visit Adult Medicine [address] [phone] Andrea Ramos MD [address] [place] [address] documented as of this encounter Visit Diagnoses Not on filedocumented in this encounter Care Teams Contracting Support Specialist Relationship Specialty Start Date End Date Andrea Ramos MD [address] [place] [address] PCP - General Internal Medicine 01/23/12 documented as of this encounter
--- NOTE | ~2025-08-14 | XR_ITS ---
EXAMINATION: XR KNEE, RIGHT CLINICAL INFORMATION: M17.11 - Unilateral primary osteoarthritis, right knee COMPARISON: MRI of the right knee 01/18/2025. TECHNIQUE: AP view bilateral knees standing, lateral and patellofemoral views right knee. FINDINGS: LEFT KNEE: No fracture or dislocation. Normal alignment. Mild medial compartment joint space narrowing. Vascular calcifications in the soft tissues. RIGHT KNEE: No fracture, dislocation, or suspicious bone lesion. There is mild medial compartment joint space narrowing. There is subtle chondrocalcinosis in the medial and lateral compartments. There is superior patellar enthesopathy present. The patella is otherwise normally aligned with preserved joint space. There is a small suprapatellar joint effusion. Soft tissues demonstrate diffuse vascular calcifications. XR/XR knee RT 3V IMPRESSION: 1. No acute bony abnormalities of the right knee. 2. Mild right medial compartment joint space narrowing with chondrocalcinosis present. 3. Small right suprapatellar joint effusion. 4. Diffuse vascular calcifications. Electronically signed by: Dorian Webb MD 08/14/2025 11:15 AM EDT
--- OUTSIDE RECORDS SUMMARY | 2025-08-15 11:30 | XMS_ITS | Encounter Summary ---
Author Organization [facility] Address [address] [place] [address] Care Team Providers Care Learning And Development Specialist Name Role Phone Andrea Ramos MD Primary Care Provider [phone] Reason for Visit * Reason Comments Hypertension 6 month follow upPt declines flu shot Encounter Details Date Type Department Care Team (Late st Contact Info) Description 08/15/2025 11:30 AM EDT Office Visit Adult Medicine [address] [phone] Andrea Ramos MD [address] [place] [address] Type 2 diabetes mellitus with diabetic microalbuminuria, with long-term current use of insulin (CMS/HCC V24, CMS/HCC V28) (Primary Dx); Pure hypercholesterolemia ; Encounter for long-term (current) use of medications; Atrial flutter, unspecified type (CMS/HCC V24, CMS/HCC V28); Chronic diastolic congestive heart failure (CMS/HCC V24, CMS/HCC V28); Essential hypertension; Monoclonal gammopathy Social History Tobacco Use Types Packs/Day Years [...] AM EST documented as of this encounter Last Filed Vital Signs Vital Sign Reading Time Taken Comments Blood Pressure 124/76 08/15/2025 11:07 AM EDT Pulse 68 08/15/2025 11:07 AM EDT Temperature 36.4 C (97.5 F) 08/15/2025 11:07 AM EDT Respiratory Rate 16 08/15/2025 11:07 AM EDT Oxygen Saturation 98% 08/15/2025 11:07 AM EDT Inhaled Oxygen Concentration - - Weight 75.8 kg (167 lb) 08/15/2025 11:07 AM EDT Height 165.1 cm (5' 5 ) 08/15/2025 11:07 AM EDT Body Mass Index 27.79 08/15/2025 11:07 AM EDT documented in this encounter Ordered Prescriptions Prescription Sig Dispense Quantity Refills Last Filled Start Date End Date B complex tablet Take 1 tablet by mouth 1 (one) time each day. 90 tablet 1 08/15/2025 11/13/2025 valsartan (DIOVAN) 160 mg tablet Take 1 tablet (160 mg total) by mouth 1 (one) time each day. 90 tablet 08/15/2025 dapagliflozin propanediol (Farxiga) 10 mg tablet Take 1 tablet (10 mg total) by mouth 1 (one) time each day. 90 each 1 08/15/2025 11/13/2025 apixaban (Eliquis) 5 mg tablet Take 1 tablet (5 mg total) by mouth 2 (two) times a day. 180 tablet 1 08/15/2025 02/11/2026 documented in this encounter Progress Notes * Andrea Ramos MD - 08/15/2025 11:30 AM EDT CHIEF COMPLAINT: Hypertension (6 month follow up/Pt declines flu shot) IDENTIFIER: Cecilio Lane is a 80 y.o. old male. HPI: Pt with diabetes Pt was on lantus 26 units and lispro ssi farixga 10mg Pt follows with endo seen last 05/2025 lantus decreased to 26 units Pt is checking sugars home 80's -200's Last A1c 7.0 05/2025 Last ldl was 38 11/2024 Pt is on high intensity statin therapy Last microalbuminuria/cr ratio was 395 11/2024 up from last value of 80.2 Pt is on arb Pt has f/u with endo 08/2025 pt follows with renal(poinndexter) Pt has f/u 11/2025 Gfr 42 02/2025 stable Pt with htn pt is on Valsartan 160mg ,hydralazine 150 bid mg, nifidipine 90mg and metoprolol xl 100mg Bp at goal at 124/76 Pt denies light head/dizziness, shortness of breath , chest pain or cough. Pt with HFpEF ef >70 echo 01/2025 Pt is on farxiga,arb is no on diuretic S/p AVR 01/2024 Pt with hx of aflutter pt on eliquis for CVA prophylaxis Pt has f/u with cardiology 08/30/2025 Pt with monoclonal gammopathy follows with heme next appointment 10/2025 ROS: GENERAL: Negative for malaise, significant weight loss and fever RESPIRATORY: No cough, wheezing or shortness of breath CARDIOVASCULAR: Negative for chest pain, leg swelling and palpitations PAST MEDICAL HISTORY: Patient Active Problem List Diagnosis Date Noted HLD (hyperlipidemia) 11/06/2024 Chronic renal impairment 07/25/2024 Diabetes mellitus ([facility] V24, [facility] V28) 02/12/2024 Monoclonal gammopathy 10/04/2023 Sciatica 08/18/2022 Spinal stenosis 08/18/2022 Chronic diastolic congestive heart failure ([facility] V24, [facility] V28) 03/07/2022 TIA (transient ischemic attack) 03/07/2022 Benign prostatic hyperplasia 11/29/2021 Nephrolithiasis 11/29/2021 Renal cyst 11/29/2021 Type 2 diabetes mellitus ([facility] V24, [facility] V28) 02/22/2020 Microalbuminuria 02/22/2020 Atrial flutter ([facility] V24, [facility] V28) 03/18/2016 S/P AVR (aortic valve replacement) 01/16/2014 DM (diabetes mellitus), type 2 with renal complications ([facility] V24, [facility] V28) 12/28/2013 OA (osteoarthritis) of knee 10/21/2012 Essential hypertension 02/18/2012 SOCIAL HISTORY: Social History Tobacco Use Smoking status: Never Passive exposure: Never Smokeless tobacco: Never Substance Use Topics Alcohol use: Not Currently FAMILY HISTORY: No family status information on file. Family History[1] ACTIVE MEDICATIONS: Medications Taking[2] ALLERGIES: Patient has no known allergies. PHYSICAL EXAM: Blood pressure 124/76, pulse 68, temperature 36.4 ??C (97.5 ??F), temperature source Temporal, resp. rate 16, height 1.651 m (65 ), weight 75.8 kg (167 lb), SpO2 98%. Body mass index is 27.79 kg/m??.Plan is deferred until next visit APPEARANCE: Alert and in no acute distress EYES: PERRLA, conjunctiva and sclera normal HEART: RRR with normal S1 and S2, no murmurs, no gallops, no JVD appreciated LUNG: clear to auscultation bilaterally EXTREMITIES: Extremities warm and well perfused without clubbing, cyanosis, or edema LABS: none IMPRESSION: 1. Type 2 diabetes mellitus with diabetic microalbuminuria, with long-term current use of insulin (CMS/HCC V24, CMS/HCC V28) 2. Pure hypercholesterolemia 3. Encounter for long-term (current) use of medications 4. Atrial flutter, unspecified type (CMS/HCC V24, CMS/HCC V28) 5. Chronic diastolic congestive heart failure (CMS/HCC V24, CMS/HCC V28) 6. Essential hypertension 7. Monoclonal gammopathy PLAN: Pt with diabetes with improved control last A1c 7.0. Pt will continue current diabetic regimen of lantus 26 units and lispro ssi farixga 10mg pt has f/u with endo 09/14/2025. Last microalb/cr ratio 395 , will update microalbumin today pt is on arb patient with ckd stage 3b pt follows with renal next visit 11/2025 Pt with htn well controlled pt will continue current regimen of Valsartan 160mg ,hydralazine 150 bid mg, nifidipine 90mg and metoprolol xl 100mg will order bmp to assess renal function and lytes pt with high cholesterol on a statin will check lipid profile and lft's last ldl < 70 pt to continue current statin therapy Patient with mgus last cbc mild anemia pt has f/u with heme 10/2025 I will defer management Pt with HFpEF no signs of fluid overload pt to have updated echo this month and f/u with cards s/p pt to continue current regimen of ARB and SGLT-2 inhibitor pt is on eliquis for cva prophylaxis patient has f/u with cards scheduled for next month. Patient to f/u with me in 6 months Myself and my colleagues have maintained a long-term, longitudinal relationship with this patient, overseeing care of chronic conditions including diabetes,hypertension and high cholesterol. This care relationship has significantly influenced my decision making and treatment plans during today's encounter. No orders of the defined types were placed in this encounter. ADDITIONAL ORDERS: None Andrea Ramos MD on 08/15/2025 at 11:40 AM EDT [1] No family history on file. [2] Outpatient Medications Marked as Taking for the 08/15/25 encounter (Office Visit) with Andrea Ramos MD Medication Sig Dispense Refill apixaban (Eliquis) 5 mg tablet Take 1 tablet (5 mg total) by mouth 2 (two) times a day. 180 tablet 1 B complex tablet Take 1 tablet by mouth 1 (one) time each day. 90 tablet 1 BD SafetyGlide Insulin Syringe 1 mL 29 gauge x 1/2 syringe USE ONCE DAILY TO INJECT LANTUS INSULIN(BULK) 300 each 5 blood sugar diagnostic (FreeStyle Lite Strips) test strip USE TO TEST BLOOD SUGAR THREE TIMES A [id number] strip 5 dapagliflozin propanediol (Farxiga) 10 mg tablet Take 1 tablet (10 mg total) by mouth 1 (one) time each day. 90 each 1 doxazosin (CARDURA) 4 mg tablet Take 1 tablet (4 mg total) by mouth at bedtime. 90 tablet 2 FreeStyle Lancets 28 gauge lancets USE TO CHECK BLOOD SUGAR TWO TIMES A DAY (BULK) 200 each 1 glucagon (Gvoke HypoPen 1-Pack) 1 mg/0.2 mL auto-injector Inject 1 mg under the skin if needed (Lowblood sugar). Inject 1 Dose into the skin as needed for Other (low blood sugar). - Subcutaneous 0.2mL 11 glucose 4 gram chewable tablet Chew 4 tablets (16 g total) if needed for low blood sugar. 50 [id number] hydrALAZINE (APRESOLINE) 100 mg tablet TAKE ONE AND ONE-HALF TABLETS BY MOUTH TWICE A DAY ^1HR1,1HR3 90 tablet 5 insulin glargine (LANTUS) 100 unit/mL injection 26 units sc at bedtime 10 mL 5 insulin lispro 100 unit/mL injection Inject 3 times a day with meals per sliding scale: 100-149: 8 units; 150-200: 10 units; 201-250: 11 units; 251-300: 12 units; 301-350:13 units; 351-400: 15 units,DINNER - 2 UNITS 45 mL 5 metoprolol succinate (TOPROL-XL) 100 mg 24 hr tablet TAKE ONE TABLET BY MOUTH EVERY DAY ^1R3 90 tablet 3 multivit-minerals/folic acid (CENTRUM ADULT 50 PLUS ORAL) Take 1 tablet by mouth 1 (one) time each day. NIFEdipine XL (PROCARDIA XL) 90 mg 24 hr tablet Take 1 tablet (90 mg total) by mouth 1 (one) time each day. 90 tablet 2 rosuvastatin (CRESTOR) 10 mg tablet TAKE ONE TABLET BY MOUTH EVERY DAY ^1R3 90 tablet 3 tamsulosin (FLOMAX) 0.4 mg 24 hr capsule TAKE ONE CAPSULE BY MOUTH EVERY DAY 30 MINUTES AFTER THE SAME MEAL EACH DAY ^1R3 30 capsule 1 valsartan (DIOVAN) 160 mg tablet Take 1 tablet (160 mg total) by mouth 1 (one) time each day. 90 tablet 0 [DISCONTINUED] B complex tablet TAKE ONE TABLET BY MOUTH EVERY DAY ^1R1 30 tablet 0 [DISCONTINUED] Eliquis 5 mg tablet TAKE ONE TABLET BY MOUTH TWICE A DAY ^1R1,1R3 60 tablet 5 [DISCONTINUED] Farxiga 10 mg tablet TAKE ONE TABLET BY MOUTH EVERY DAY ^1R1 30 tablet 5 [DISCONTINUED] valsartan (DIOVAN) 160 mg tablet TAKE 1 TABLET BY MOUTH 1 TIME EACH DAY. 90 tablet 0 documented in this encounter Plan of Treatment Upcoming Encounters Date Type Department Care Team (Late st Contact Info) Description 08/30/2025 9:10 AM EDT Office Visit [facility] [address] [facility] [address] [place] [phone] Dipak Corbett NP [address] [place] [address] [place] [phone] 09/14/2025 1:00 PM EDT Office Visit Endocrinology [address] [place] [phone] María Wlech PA [address] [place] [address] 10/24/2025 10:30 AM EST Office Visit [facility] Hematology Oncology [address] [place] [phone] Kusum Bess MD [address] [place] [address] 10/31/2025 10:00 AM EST Office Visit Orthopedic Surgery [place] [address] [phone] Ruslan Lyle DPM [address] [phone] 02/19/2026 9:45 AM EDT Office Visit Adult Medicine [facility] [address] [place], [place] [phone] Andrea Ramos MD [address] [place] [address] Pending Results Name Type Priority Associated Diagnoses Date /Time Lipid panel with reflex to direct LDL Lab Routine Pure hypercholesterolemia 08/15/2025 12:14 PM EDT Comprehensive metabolic panel Lab Routine Type 2 diabetes mellitus with diabetic microalbuminuria, with long-term current use of insulin ([facility] V24, [facility] V28) Encounter for long-term (current) use of medications 08/15/2025 12:14 PM EDT Microalbumin creatinine urine ratio Lab Routine Type 2 diabetes mellitus with diabetic microalbuminuria, with long-term current use of insulin ([facility] V24, [facility] V28) 08/15/2025 12:14 PM EDT Scheduled Orders Name Type Priority Associated Diagnoses Orde r Schedule Lipid panel with reflex to direct LDL Lab Routine Pure hypercholesterolemia 1 Occurrences starting 08/15/2025 until 08/15/2026 Comprehensive metabolic panel Lab Routine Type 2 diabetes mellitus with diabetic microalbuminuria, with long-term current use of insulin ([facility] V24, [facility] V28) Encounter for long-term (current) use of medications 1 Occurrences starting 08/15/2025 until 08/15/2026 Microalbumin creatinine urine ratio Lab Routine Type 2 diabetes mellitus with diabetic microalbuminuria, with long-term current use of insulin ([facility] V24, [facility] V28) 1 Occurrences starting 08/15/2025 until 08/15/2026 documented as of this encounter Visit Diagnoses Diagnosis Type 2 diabetes mellitus with diabetic microalbuminuria, with long-term current use of insulin ([facility] V24, [facility] V28)- Primary Pure hypercholesterolemia Encounter for long-term (current) use of medications Encounter for long-term (current) use of other medications Atrial flutter, unspecified type ([facility] V24, [facility] V28) Chronic diastolic congestive heart failure ([facility] V24, [facility] V28) Essential hypertension Unspecified essential hypertension Monoclonal gammopathy Monoclonal paraproteinemia documented in this encounter Discontinued Medications Medication Sig Discontinue Reason Start Date End Da te Eliquis 5 mg tablet TAKE ONE TABLET BY MOUTH TWICE A DAY ^1R1,1R3 Reorder 03/21/2025 08/15/2025 Farxiga 10 mg tablet TAKE ONE TABLET BY MOUTH EVERY DAY ^1R1 Reorder 06/21/2025 08/15/2025 B complex tablet TAKE ONE TABLET BY MOUTH EVERY DAY ^1R1 Reorder 07/21/2025 08/15/2025 valsartan (DIOVAN) 160 mg tablet TAKE 1 TABLET BY MOUTH 1 TIME EACH DAY. Reorder 07/31/2025 08/15/2025 documented as of this encounter Care Teams Learning And Development Specialist Relationship Specialty Start Date End Date Andrea Ramos MD [address] [place] [address] PCP - General Internal Medicine 01/23/12 documented as of this encounter
--- OUTSIDE RECORDS SUMMARY | 2025-08-15 12:47 | XMS_ITS | Clinical Summary ---
Author Organization [facility] [facility] Address [address] [place] [address] Care Team Providers Care Professor Of Visual Arts Name Role Phone Andrea Ramos MD Primary Care Provider [phone] Medications Medication Sig Dispensed Refills Start Date [...] 2 (two) times a day. 0 Active endtvnfc-uyltjytfn-igo amethamethasone (POLYDEX) 3.5-10484-9.1 OINT 0 Active insulin glargine (LANTUS) injection [...] age to complete this topic Care Teams Professor Of Visual Arts Relationship Specialty Start Date End Date Andrea Ramos MD PCP - General Internal Medicine 01/07/22
--- OUTSIDE RECORDS SUMMARY | 2025-08-15 12:47 | XMS_ITS | Encounter Summary ---
Author Organization [facility] Address [address] [place] [address] Care Team Providers Care Culture Room Worker Name Role Phone Andrea Ramos MD Primary Care Provider [phone] Encounter Details Date Type Department Care Team (Late st Contact Info) Description 04/06/2025 Lab Requisition [facility] - Main Lab [address] [facility] [place] [phone] Sourav Mclain MD [address] [facility] [address] [place] [phone] Malignant neoplasm of prostate (CMS/HCC V24, CMS/HCC [...] Description 08/30/2025 9:10 AM EDT Office Visit [facility] - [address] [facility] [address] [place] [phone] Dipak Corbett NP [facility] [address] [place] [address] 09/14/2025 1:00 PM EDT Office Visit Endocrinology [facility] [address] [place] [address] María Welch PA [address] [place] [address] 10/24/2025 10:30 AM EST Office Visit [facility] Hematology Oncology [address] [place] [address] Kusum Bess MD [address] [place] [address] 10/31/2025 10:00 AM EST Office Visit Orthopedic Surgery [place] [address] [phone] Ruslan Lyle DPM [address] [phone] 02/19/2026 9:45 AM EDT Office Visit Adult Medicine [facility] [address] [place] [address] Andrea Ramos MD [address] [place] [address] documented as of this encounter Procedures Procedure Name Priority Date/Time Associated Diagnosis Comments AP OUTSIDE CONSULT Routine 04/04/2025 Malignant neoplasm of prostate ([facility]/HCC V24, [facility] V28) documented in this encounter Results * Anatomic pathology outside consult (04/04/2025) Final Diagnosis A. Prostate, Left Mid [place] Biopsy: - Benign prostatic tissue. B. Prostate, Left Lat [place] Biopsy: - Benign prostatic tissue. C. Prostate, Left Mid Mid Biopsy: - Benign prostatic tissue. D. Prostate, Left Lat Mid Biopsy: - Benign prostatic tissue. E. Prostate, Left Mid Base Biopsy: - Benign prostatic tissue. F. Prostate, Left Lat Base Biopsy: - Benign prostatic tissue. G. Prostate, Left Transition Zone Biopsy: - Prostatic acinar adenocarcinoma (conventional type), grade group 1 (Moca score 3+3=6). - Tumor continuously involves 40% of overall tissue, present in 3 of 3 tissue cores. H. Prostate, Right Mid [place] Biopsy: - Benign prostatic tissue. I. Prostate, Right Lat [place] Biopsy: - Benign prostatic tissue. J. Prostate, Left Mid Mid Biopsy: - Benign prostatic tissue. K. Prostate, Left Lat Mid Biopsy: - Benign prostatic tissue. L. Prostate, Left Mid Base Biopsy: - Benign prostatic tissue. M. Prostate, Left Lat Base Biopsy: - Benign prostatic tissue. 04/13/2025 1:11 PM EDT [facility] Clinical Information Prostate Cancer C61 Last PSA total = 16.1 (02/23/2025) [id number] 04/13/2025 1:11 PM EDT [facility] Gross Description A. Prostate, Left Mid [place] Biopsy: Received, properly labeled, are two H and E stained slides and two unstained slides. B. Prostate, Left Lat [place] Biopsy: Received, properly labeled, are two H [...] two unstained slides. H. Prostate, Right Mid [place] Biopsy: Received, properly labeled, are two H and E stained slides and two unstained slides. I. Prostate, Right Lat [place] Biopsy: Received, properly labeled, are two H [...] unstained slides. /al 04/13/2025 1:11 PM EDT [facility] Disclaimer Unless otherwise specified, all tissue is 10% NB formalin fixed and paraffin embedded. Technical pathology services provided by [facility] at [address] [place] [address] [address], [place] [address] (CLIA #[id number]/Nancy Corley MD, History Teacher) 04/13/2025 1:11 PM EDT [facility] Tissue Prostate / Unknown 04/04/20252024 12:58 [...] Mclain MD LAB PATHOLOGY ORDERABLES Final Result [facility] [address] [place] [address], documented in this encounter Visit Diagnoses Diagnosis Malignant neoplasm of prostate (CMS/HCC V24, CMS/HCC V28) Malignant neoplasm of prostate documented in this encounter Care Teams Culture Room Worker Relationship Specialty Start Date End Date Andrea Ramos MD [address] [place] [address] PCP - General Internal Medicine 01/23/12 documented as of this encounter
--- OUTSIDE RECORDS SUMMARY | 2025-08-15 12:47 | XMS_ITS | Encounter Summary ---
Author Organization [facility] Address [address] [facility] [address] [place] [address] Phone Care Team Providers Care Side Stitcher Name Role Phone Andrea Ramos MD Primary Care Provider [phone] Encounter Details Date Type Department Care Team (Late st Contact Info) Description 05/11/2024 Documentation Only [facility] [address] [place] [address] Nataly HernandezOCEANA, [place] [address] [place] [address] Social History Tobacco Use Types Packs/Day Years Used Date Smoking Tobacco: Never Sex and Gender Information Value Date Recorded Sex Assigned at Not on file Legal Sex Male 4:33 PM EST Gender Identity Not on file Sexual Orientation Not on file documented as of this encounter Plan of Treatment Upcoming Encounters Date Type Department Care Team (Late st Contact Info) Description 12/11/2025 1:30 PM EST Office Visit [facility] [address] [place] [address] German Simpson MD [address] [place] [address] [place] [phone] documented as of this encounter Visit Diagnoses Not on filedocumented in this encounter Care Teams Side Stitcher Relationship Specialty Start Date End Date Andrea Ramos MD PCP - General 09/20/19 documented as of this encounter
--- OUTSIDE RECORDS SUMMARY | 2025-08-15 12:47 | XMS_ITS | Clinical Summary ---
Author Organization [facility] Address [address] [place] [address] Phone Care Team Providers Care Ground Water Technician Name Role Phone Andrea Ramos MD Primary Care Provider [phone] Allergies No known active allergies Medications insulin [...] (BULK) 200 each 1 02/04/20 25 Active multivit-land examiner als/folic acid (CENTRUM ADULT 50 PLUS ORAL) Take 1 tablet by mouth 1 (one) time each day. Active glucose 4 gram chewable tablet Chew 4 tablets (16 g total) if needed for low blood sugar. 50 tablet 12 02/17/20 25 2025 Active glucagon (Gvoke HypoPen 1-Pack) 1 mg/0.2 [...] ^1HR1,1HR3 90 tablet 5 03/21/20 25 Active blood sugar diagnostic (FreeStyle Lite Strips) test stripIndicatio ns:Type 2 diabetes mellitus with diabetic microalbuminur ia, with long-term current use of insulin ([facility] V24, [facility] V28) USE TO TEST BLOOD SUGAR THREE TIMES A DAY 200 strip 04/17/20 25 Active insulin glargine (LANTUS) 100 unit/mL injection 26 units sc at bedtime 10 mL 06/13/20 25 Active tamsulosin (FLOMAX) 0.4 mg 24 hr capsule TAKE ONE CAPSULE BY MOUTH EVERY DAY 30 MINUTES AFTER THE SAME MEAL EACH DAY ^1R3 30 capsule 1 06/21/20 25 Active BD SafetyGlide Insulin Syringe 1 mL 29 gauge x 1/2 syringe USE ONCE DAILY TO INJECT LANTUS INSULIN (BULK) 300 each 07/21/20 25 Active apixaban (Eliquis) 5 mg tablet Take 1 tablet (5 mg total) by mouth 2 (two) times a day. 180 tablet 1 08/15/20 25 2025 Active dapagliflozin propanediol (Farxiga) 10 mg tablet Take 1 tablet (10 mg total) by mouth 1 (one) time each day. 90 each 1 08/15/20 25 2024 Active valsartan (DIOVAN) 160 mg tablet Take 1 tablet (160 mg total) by mouth 1 (one) time each day. 90 tablet 08/15/20 25 Active B complex tablet Take 1 tablet by mouth 1 (one) time each day. 90 tablet 1 08/15/20 25 2024 Active B complex tablet TAKE ONE TABLET BY MOUTH EVERY DAY ^1R1 30 tablet 5 02/10/20 25 2024 Discontinued insulin syringe,safety needle (BD SafetyGlide Insulin Syringe) 1 mL 29 gauge x 1/2 syringe Inject 1 each under the skin 3 (three) times a day. Use to inject lantus and humalog tid 300 each 1 02/08/20 25 2024 Discontinued Eliquis 5 mg tablet TAKE ONE TABLET BY MOUTH TWICE A DAY ^1R1,1R3 60 tablet 5 03/21/20 25 2024 Discontinued(R eorder) valsartan (DIOVAN) 160 mg tablet TAKE 1 TABLET BY MOUTH 1 TIME EACH DAY. 90 tablet 05/01/20 25 2024 Discontinued Farxiga 10 mg tablet TAKE ONE TABLET BY MOUTH EVERY DAY ^1R1 30 tablet 5 06/21/20 25 2024 Discontinued(R eorder) valsartan (DIOVAN) 160 mg tablet TAKE ONE TABLET BY MOUTH EVERY DAY ^1R3 30 tablet 07/21/20 25 2024 Discontinued B complex tablet TAKE ONE TABLET BY MOUTH EVERY DAY ^1R1 30 tablet 07/21/20 25 2024 Discontinued(R eorder) valsartan (DIOVAN) 160 mg tablet TAKE 1 TABLET BY MOUTH 1 TIME EACH DAY. 90 tablet 07/31/20 25 2024 Discontinued(R eorder) Active Problems Problem Noted Date Diagnosed Date HLD (hyperlipidemia) 11/06/2024 Chronic renal impairment 07/25/2024 Diabetes mellitus ([facility] V24, [facility] V28) Overview (11/06/2024): TEE ROBERTS Monoclonal [...] taking it. An EMG was performed at [place] and a lumbar spine MRI performed and [...] stenosis 08/18/2022 Chronic diastolic congestive heart failure (CMS/HCC V24, CMS/HCC V28) 03/07/2022 Overview (11/06/2024): -In spite of [...] 11/29/2021 Nephrolithiasis 11/29/2021 Overview (11/06/2024): Follows with [facility] Urology on annual basis. Renal cyst 11/29/2021 Type 2 diabetes mellitus (CMS/HCC V24, CMS/HCC V 28) 02/22/2020 Microalbuminuria 02/22/2020 Atrial flutter ([facility] V24, [facility] V28) 2015 Overview (11/06/2024): - Chronic, [...] (diabetes mellitus), type 2 with renal complications (CMS/HCC V24, CMS/HCC V28) 12/28/2013 Overview (11/06/2024): Microalbumin 263 on [...] Encounters Date Type Department Care Team Description 08/15/2025 11:30 AM EDT Office Visit Adult Medicine [address] [phone] Andrea Ramos MD Type 2 diabetes mellitus with diabetic microalbuminuria, with long-term current use of insulin (CMS/HCC V24, CMS/HCC V28) (Primary Dx); Pure hypercholesterolemia; Encounter for long-term (current) use of medications; Atrial flutter, unspecified type (CMS/HCC V24, CMS/HCC V28); Chronic diastolic congestive heart failure (CMS/HCC V24, CMS/HCC V28); Essential hypertension; Monoclonal gammopathy 06/13/2025 1:15 PM EDT Office Visit [address] [phone] María Welch PA Type 2 diabetes mellitus with diabetic microalbuminuria, with long-term current use of insulin ([facility] [place], [facility] V28) (Primary Dx) 06/06/2025 Telephone Adult Medicine [address] [phone] Andrea Ramos MD 05/29/2025 Telephone Adult Medicine [address] [phone] Andrea Ramos MD from Last 3 Months Surgical History Surgery Date Site/Laterality Comments LUMBAR LAMINECTOMY 2006 PROCEDURE: HISTORICAL LUMB LAMINECTOMY; COMMENT: Dr. Grimes, L4-5, L5-S1 decompression HAND SURGERY PROCEDURE: HISTORICAL HAND SURGERY; COMMENT: left 3trd trigger COLONOSCOPY 03/02/2014 PROCEDURE: HISTORICAL COLONOSCOPY; COMMENT: normal; would not repeat CATARACT EXTRACTION 2020 Bilateral PROCEDURE: HISTORICAL CATARACT REMOVAL OTHER SURGICAL HISTORY 2016 PROCEDURE: VA RPLCMT AORTIC VALVE ANNULUS ENLGMENT NONC SINUS KNEE SURGERY 2016 Right PROCEDURE: HISTORICAL KNEE SURGERY SHOULDER SURGERY 1990 Right PROCEDURE: HISTORICAL SHOULDER SURGERY MECHANICAL AORTIC VALVE REPLACMENT AND MITRAL VALVE REPAIR N/A TRIGGER FINGER RELEASE 08/19/2024 Left TRIGGER FINGER RELEASE 09/30/2024 Right Medical History Medical History Date Comments HTN (hypertension) 02/18/2012 DX:HTN (hyper tension) DM type 2 (diabetes mellitus , type 2) ([facility] [place]24, [facility] V28) 02/18/2012 DX:DM type 2 (diabetes dez itus, type 2) ([facility]) Historical Medical DX 02/18/2012 DX:Hyperli pidemia LDL goal < 70 OA (osteoarthritis) of knee 10/21/2012 DX:O A (osteoarthritis) of knee; COMMENT: right knee Atrial fibrillation, chronic ([facility] V24, [facility] V28) DX:Atrial fibrillation, simulation specialist maureen ([facility]); COMMENT: dx 2015? Hyperlipidemia Heart valve disease Trigger finger Social [...] Mass Index 27.79 08/15/2025 11:07 AM EDT Plan of Treatment Upcoming Encounters Date Type Department Care Team (Late st Contact Info) Description 08/30/2025 9:10 AM EDT Office Visit [facility] [address] [facility] [address] [place] [phone] Dipak Corbett NP [address] [place] [address] Dr Macias [address] [place] [phone] 09/14/2025 1:00 PM EDT Office Visit Endocrinology - [place] [address] María Welch PA [address] [place] [address] 10/24/2025 10:30 AM EST Office Visit [facility] Hematology Oncology [address] [place] [phone] Kusum Bess MD [address] [place] [address] 10/31/2025 10:00 AM EST Office Visit Orthopedic Surgery - [place] [address] [address] Ruslan Lyle, DPM [address] [address] 02/19/2026 9:45 AM EDT Office Visit Adult Medicine [facility] [address] [place] [address] Andrea Ramos MD [address] [place], [place] Health Maintenance Due Date Last Done Comments [...] microalbuminuria, with long-term current use of insulin ([facility] V24, [facility] V28) POC GLUCOSE Routine 06/13/2025 1:16 PM EDT Type 2 diabetes mellitus with diabetic microalbuminuria, with long-term current use of insulin ([facility] V24, [facility] V28) COMPREHENSIVE METABOLIC PANEL Routine 03/10/2025 2:59 PM EDT IgG monoclonal gammopathy MICROALBUMIN CREATININE URINE RATIO Routine 12/02/2024 1:40 PM EST Type 2 diabetes mellitus with other specified complication, unspecified whether mcc insulin use ([facility] V24, [facility] V28) LIPID PANEL WITH REFLEX TO DIRECT LDL Routine 12/02/2024 1:40 PM EST Type 2 diabetes mellitus with other specified complication, unspecified whether termite exterminator insulin use ([facility] V24, [facility] V28) from Last 3 Months or Most Recently Relevant to Health Maintenance Results * (ABNORMAL) Hemoglobin A1c (06/13/2025 1:59 PM EDT) [facility] Hemoglobin A1C 7.0(H) <6.5 % LAB CHEMISTRY METHOD 06/13/2025 9:26 PM EDT [facility] Mean Bld Glu Estim. 154 mg/dL LAB CHEMISTRY METHOD 06/13/2025 9:26 PM EDT [facility] Blood Venous blood specimen / Unknown Venipuncture / Unknown 06/13/2025 1:59 PM EDT 06/13/2025 1:59 PM EDT María PERRY LAB BLOOD ORDERABLES Final Result [facility] [address] [place] [address], [place] [phone] * POC glucose manually resulted (06/13/2025 1:16 PM EDT) [facility] Glucose POC 383 mg/dL Blood Capillary blood specimen / Unknown 06/13/2025 1:16 PM EDT María PERRY POINT OF CARE TEST ENTER/ED IT ORDERABLES Final Result * (ABNORMAL) Comprehensive metabolic panel (03/10/2025 2:59 PM EDT) [facility] Sodium 134 133 - 145 mmol/L LAB CHEMISTRY METHOD 03/10/2025 6:37 PM EDT [facility] Potassium 4.2 3.5 - 5.5 mmol/L LAB CHEMISTRY METHOD 03/10/2025 6:37 PM EDT [facility] Chloride 99 96 - 110 mmol/L LAB CHEMISTRY METHOD 03/10/2025 6:37 PM EDT [facility] CO2 26 21 - 32 mmol/L LAB CHEMISTRY METHOD 03/10/2025 6:37 PM [facility] Anion Gap 9 3 - 11 LAB CHEMISTRY METHOD 03/10/2025 6:37 PM [facility] Glucose 257(H) 70 - 100 mg/dL LAB CHEMISTRY METHOD 03/10/2025 6:37 PM [facility] BUN 27(H) 5 - 25 mg/dL LAB CHEMISTRY METHOD 03/10/2025 6:37 PM [facility] Creatinine 1.65(H) 0.70 - 1.30 mg/dL LAB CHEMISTRY METHOD 03/10/2025 6:37 PM [facility] eGFR 42(L) >=60 mL/min/1. 73m2 LAB CHEMISTRY METHOD 03/10/2025 6:37 PM [facility] Comment:Calculation based on the Chronic Kidney Disease Epidemiology Collaboration (CKD-EPI) equation refit without adjustment for race. BUN/Creatinine Ratio 16.4 LAB CHEMISTRY METHOD 03/10/2025 6:37 PM [facility] Calcium 9.5 8.5 - 10.5 mg/dL LAB CHEMISTRY METHOD 03/10/2025 6:37 PM [facility] AST (SGOT) 13 10 - 42 unit/L LAB CHEMISTRY METHOD 03/10/2025 6:37 PM [facility] ALT (SGPT) 17 10 - 60 unit/L LAB CHEMISTRY METHOD 03/10/2025 6:37 PM [facility] Alkaline Phosphatase 69 42 - 121 unit/L LAB CHEMISTRY METHOD 03/10/2025 6:37 PM [facility] Total Protein 8.2(H) 6.0 - 8.0 g/dL LAB CHEMISTRY METHOD 03/10/2025 6:37 PM [facility] Albumin 3.8 3.2 - 5.0 [...] esult [facility] [address] [place] [address], [place] [phone] * Lipid panel with reflex to direct [...] mg/dL LAB CHEMISTRY METHOD 12/02/2024 10:46 PM [facility] Chol/HDL Ratio 1.9 0.0 - 4.4 LAB CHEMISTRY METHOD 12/02/2024 10:46 PM [facility] Blood Venous blood specimen / Unknown Venipuncture / Unknown 12/02/2024 1:40 PM EST 12/02/2024 1:40 PM EST us María Yuri PA LAB BLOOD ORDERABLES Final Result [facility] [address] [place] [address], [place] [phone] * (ABNORMAL) Microalbumin creatinine urine ratio (12/02/2024 [...] URINE ORDERABLES Final Result Performing Organization Address [facility] Co de Phone Number [facility] [address] [place] [address], [place] [phone] from Last 3 Months or Most Recently Relevant to Health Maintenance Insurance [facility] [employer] MEDICARE Member Subscriber Plan / Payer (Ef fective 2016-Present) Name:Cecilio Lane Relation to Subscriber:Self Name:Cecilio Lane Payer ID:[id number] Group ID:[id number] Type:Not on file Address: [place] [address] [place] [address] Care Teams Ground Water Technician Relationship Specialty Start Date End Date Andrea Ramos MD [address] [place] [phone] PCP - General Internal Medicine 01/23/12
--- OUTSIDE RECORDS SUMMARY | 2025-08-15 12:47 | XMS_ITS | Clinical Summary ---
Author Organization [facility], Address [address] [place] [address] [place] [address] Phone Care Team Providers Care Spinning Frame Changer Name Role Phone Andrea Ramos MD Primary Care Provider [phone] Allergies No known active allergies Medications apixaban [...] Nephrolithiasis 11/29/2021 10/06/2023 Overview (10/06/2023): Follows with [facility] Urology on annual basis. Essential hypertension 02/22/2020 Microalbuminuria 02/22/2020 Type 2 diabetes mellitus 02/22/2020 Encounters Date Type Department Care Team Description 05/17/2025 2:15 PM EDT Office Visit [facility], [address] [place] [address] German Simpson MD Stage 3b chronic kidney disease (HCC) (Primary Dx); Hypertension; Persistent proteinuria; Monoclonal gammopathy from Last 3 Months Social History Tobacco Use Types Packs/Day Years Used Date Smoking Tobacco: Never Sex and Gender Information Value Date Recorded Sex Assigned at Not on file Legal Sex Male 4:33 PM EST Gender Identity Not on file Sexual Orientation Not on file Last Filed Vital Signs Vital Sign Reading Time Taken Comments Blood Pressure 120/60 05/17/2025 2:17 PM EDT Pulse 89 04/27/2024 1:21 PM EDT Temperature [...] Visit [facility], [address] [place] [address] German Simpson MD [address] [facility] [address] [place] [address] Health Maintenance Due Date Last Done Comments Diabetes: Ophthalmology Exam 02/06/2020 Diabetes: Pedal Pulse Checked 02/06/2020 Diabetes: Sensory Foot Exam 02/06/2020 Diabetes: Visual Foot Exam 02/06/2020 Diabetes: Hemoglobin A1C 06/09/2025 025, 12/02/2024, 01/28/2024, Additional history exists Influenza Vaccine (#1) 2025 Pneumococcal Vaccine: 50+ Years Completed 11/29/2021, 08/06/2012 Pneumococcal Vaccine: Peds (0 to 5 Years) and At-Risk Patients (6 to 49 Years) Discontinued 11/29/2021, 08/06/2012 Hepatitis B Vaccine Aged Out No longe r eligible based on patient's age to complete this topic Insurance [employer] Dual SNP ([id number]) [place] [id number] Care Teams Spinning Frame Changer Relationship Specialty Start Date End Date Andrea Ramos MD PCP - General 09/20/19
--- OUTSIDE RECORDS SUMMARY | 2025-08-15 12:47 | XMS_ITS | Encounter Summary ---
Author Organization [facility] Address [address] [facility] [address] [place] [address] Phone Care Team Providers Care Conveyor Mechanic Name Role Phone Andrea Ramos MD Primary Care Provider [phone] Encounter Details Date Type Department Care Team (Late st Contact Info) Description 02/17/2025 Documentation Only [facility] [address] [place] [address] Nataly Hernandez[place]ALK[place], [place] [address] [place] [address] Social History Tobacco Use Types [...] Visit [facility] [address] [place] [address] German Simpson MD [address] [place] [address] [place] [phone] documented as of this encounter Visit Diagnoses Not on filedocumented in this encounter Care Teams Conveyor Mechanic Relationship Specialty Start Date End Date Andrea Ramos MD PCP - General 09/20/19 documented as of this encounter
--- OUTSIDE RECORDS SUMMARY | 2025-08-15 12:47 | XMS_ITS | Data Portability ---
Author Organization [place] [facility], Allergy Address 100 [facility] 100 [place] [address] Care Team Providers Care Pcmh Specialist Name Role Phone RENETTA BYRNE Primary Care [...] copy of the audiogram, a list of [facility] hearing aid providers, and medical clearance [...] Name and Address Organization Details Recorded Time Essential hypertens ion 66778918 Active 2011 NARENDRA KEANE MD 100 [facility] 100, [facility] [place], [address] , [place] [facility] 5 16:15:10 Osteoarth ritis of knee 559723127 Active 2011 NARENDRA KEANE MD [address] [place] [address], [place], [address] , [place] [facility] [place] 5 16:15:10 Renal disorder due to type 2 diabetes mellitus 762847023 Active 2013 NARENDRA KEANE MD [address] [place] [address], [place], [address] , [place] [facility] [place] 5 16:15:10 History of aortic valve replaceme nt 71950506391 00 Active 2013 NARENDRA KEANE MD [address] [facility],[place] [address], [place], [address] , [place] [facility] [place] 5 16:15:10 Atrial flutter 8831623 Active 2015 NARENDRA KEANE MD [address] [facility],[place] [facility], [place], [address] , [place] [facility] [place] 5 16:15:10 Microalbu minuria 482488241 Active 2019 NARENDRA KEANE MD [address] [facility],[place] [address], [place], [address] , [place] [facility] [place] 5 16:15:10 Type 2 diabetes mellitus 87648359 Active 2019 NARENDRA KEANE MD [address] [place] [facility], [place], [address] , [place] [facility] [place] 5 16:15:10 Follicula r cysts of skin and subcutane ous tissue 319659536 Active 2019 Other follicula r cysts of the skin and subcutane ous tissue; Note: Date Diagnosed : 0 1:41 PM (L72.8) Not Available [facility] 4 02:14:26 Benign prostatic hyperplas ia 717022685 Active 2021 NARENDRA KEANE MD [address] [place] [address], [place], [address] , [place] [facility] [place] 16:15:10 Cyst of kidney 163197028 Active 2021 NARENDRA KEANE MD [address],[place] [address], [place], [address] , [place] [facility] [place] 16:15:10 Kidney stone 82155528 Active 2021 NARENDRA KEANE MD [address] [facility] [place] [address], [place], [address] , [place] [facility] [place] 5 16:15:10 Transient cerebral ischemia 324333676 Active 2021 NARENDRA KEANE MD [address] [facility] [place] [facility], [place], [address] , [place] [facility] [place] 5 16:15:10 Chronic diastolic heart failure 934040731 Active 2021 NARENDRA KEANE MD [address] [facility] [place] [facility], [place], [address] , [place] [facility] [place] 16:15:10 Sciatica 00074217 Active 2021 NARENDRA KEANE MD [address] [facility] [place] [facility], [place], [address] , [place] [facility] [place] 16:15:10 Spinal stenosis 97997300 Active 2021 NARENDRA KEANE MD [address] [facility] [place] [facility], [place], [address] , [place] [facility] [place] 16:15:10 Monoclona l gammopath y (clinical ) 101848902 Active 2022 NARENDRA KEANE MD [address] [place] [address], [place], [address] , [place] [facility] [place] 16:15:10 Coronary arteriosc lerosis 66877736 Active 2023 NARENDRA KEANE MD [address] [facility] [place] [address], [place], [address] , [place] [facility] [place] 16:15:10 Diabetes mellitus 78357272 Active 2023 NARENDRA KEANE MD 100 [facility],[place] [address], [place], [address] , [facility] - [facility] [place] 16:15:10 Chronic renal insuffici ency 394471672 Active 2023 NARENDRA KEANE MD [address] [place] [address],[place] [address], [place], [address] , [facility] - [facility] [place] 16:15:10 Mitral valve regurgita tion 99955457 Active 2023 NARENDRA KEANE MD [address] [place] [address],[place] [address], [place], [address] , [facility] - [facility] [place] 16:15:10 Hyperlipi demia 00137836 Active 2023 NARENDRA KEANE MD [address] [place] [address],[place] [address], [place], [address] , [facility] - [facility] [place] 16:15:10 Heart murmur 29279802 Active 2023 NARENDRA KEANE MD [address] [place] [address],[place] [address], [place], [address] , [facility] - [facility] [place] 16:15:10 Sensorine ural hearing loss of bilateral ears 613091034 Active 2024 KEVIN GARCIA 100 [facility],[place] [address], [place], [address] , [facility] - [facility] 5 10:18:01 Problem Notes None recorded. Procedures Surgical History Date Name Laterality Status Provider Name and Address Organization Details Recorded Time 03/23/2025 Comp Audio with Tymps - 53844 & 01777 completed KEVIN GARCIA 100 [facility],[place] [address], [place], [address], [facility] - [facility] 03/23/2025 10:17:54 Imaging Results None recorded. Procedure Notes None recorded. Medical Equipment None Reported. Allergies Allergen ID Allergen Name Allergen Category Reaction Reaction Severity Criticality Documentation Date Start Date Code Code System Note Provider Name and Address Organization Details Recorded Time 581557 No known allergy (situatio n) Not available Not available Not available Not available 03/21/2025 [id number] SNCATHIE KEANE MD [address] [place] [address], [address], [facility] 5 16:14:59 Medications Name Sig Start Date [...] mg tablet 06/12 completed Medicati on ID: [id number] B rand Name: metoprol ol tartrate Send [...] mg tablet 06/12 completed Medicati on ID: 655974 B rand Name: amlodipi ne Send Method: E-Prescr ibed Sub s Allowed: subs OK Medic ationGen ericName : amlodipi ne Not Available Not Available Not Available hydralazi ne 100 mg tablet 2023 active Not Available Not Available Not Avai lable metformin 1,000 mg tablet active Medicati on ID: [id number] B rand Name: metformi n Send Method: [...] 50 mg tablet active Medicati on ID: 402241 B rand Name: spironol actone S end [...] 0.4 mg tablet active Medicati on ID: 642833 B rand Name: vitamin B complex- folic [...] ous pen injector active Medicati on ID: [id number] B rand Name: Gus gordon Send Method: E-Prescr ibed Sub s Allowed: subs OK Medic ationGen ericName : Andrewit y Not Available Not Available Not Available [...] Updated DateTime 03/23/2025 165.1 cm 26.6 kg/m2 32542.78 g AUDIE BURNETT [place] - [facility] 03/23/2025 10:40:55 Social History None recorded. Functional Status None recorded. Mental Status None recorded. Family History Nothing Reported. Medical History No medical history recorded. Past Encounters Encounter ID Performer Location Encounter Start Date Encounter Closed Date Diagnosis/Indication Diagnosis SNOMED-CT Code Diagnosis ICD10 Code Diagnosis IMO Codes Diagnosis Note [id number] NARENDRA KEANE MD [facility] [address] [place] [address] 03/23/2025 09:56:48 03/23/2025 10:49:32 Sensorineural hearing loss of bilateral ears 338801263 H90.3 07230300 Audiologic al evaluation results: Moderate to profound sensorineu ral hearing loss with poor word recognitio n, bilaterall y. Tympanomet ry:Right Ear:Type ALeft Ear:Type As Health Concerns Section Related Observation LastModified by Organization Detai ls LastModified Time None Recorded Concern Status LastModified by Organization Details LastModified Time None Recorded Advance Directives Directive None Recorded Payers Insurance Date Sequence Insurance Name Policy Number Policy Ramos Covered Member ID Ramos Member ID Guarantor Name 03/20/2025 1 [facility] - DOS ON OR AFTER 2023 - [facility] OPTIONS AND ONE CARE (MEDICARE REPLACEMENT/ADV ANTAGE - PPO) [address] [id number] Notes Date Note Type Note Provider Name and Address Organization Details Recorded Time 03/23/2025 text/html ROS as noted in the HPI Hearing lossescorted by granddaughtertried hearing aids about 10 yrs ago but was not able to use the 'computer technology'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 03/23/2025 10:48:31
== END 2025-08-14 11:20 | disposition home or self-care (01) ==
LOC: HO.HOSX 11:19
PROVIDERS: Visit Provider Physician Assistant
DX: M17.11 Unilateral primary osteoarthritis, right knee (principal)
CPT/HCPCS: 73562; 99212

== ENCOUNTER 2025-09-13 12:37 | Outpatient (AMB) | payer OTHER, SELFPAY ==
--- OUTSIDE RECORDS SUMMARY | 2024-08-19 07:06 | XMS_ITS | Encounter Summary ---
Author Organization [facility] Address [id number] [place] [phone] Care Team Providers Care Electric Motor Repairing Supervisor Name Role Phone Andrea Ramos MD Primary Care Provider [phone] Encounter Details Date Type Department Care Team (Late st Contact Info) Description 08/19/2024 7:06 AM EDT Hospital Encounter TH HISTORIC ENCOUNTERS EASTERN CONVERSION ONLY Giselle Walton MD [address] [place] [address] Social History Tobacco Use Types Packs/Day Years Used Date Smoking Tobacco: Never Passive Smoke Exposure: Never Smokeless Tobacco: Never Alcohol Use Standard Drinks/Week Comments Not Currently 0 (1 standard drink = 0.6 oz pur e alcohol) Sex and Gender Information Value Date Recorded Sex Assigned at Male 09/30/2024 8:23 AM EST Legal Sex Male 1:55 PM EST Gender Identity Male 09/30/2024 8:23 AM EST Sexual Orientation Straight 09/30/2024 8: 23 AM EST documented as of this encounter Procedure Notes * Giselle Walton MD - 08/19/2024 9:33 AM EDT Operative Note Encounter Date & Time 08/19/24 09:31 Operative Note Operative Details PATIENT NAME: Cecilio Lane Patient Date of Procedure: 08/19/2024 PRE-OP DIAGNOSIS: left index finger trigger finger POST-OP DIAGNOSIS: left index finger trigger finger Procedure and Diagnosis: Release of A1 Eugenio of left index finger trigger finger CPT 84681 PRIMARY SURGEON: Giselle Walton MD HYDROELECTRIC MACHINERY MECHANIC HELPER SURGEON: none HYDROELECTRIC MACHINERY MECHANIC HELPER(S): Adelaida Robertson (scrub nurse), Mj Conner (circulating nurse) PROCEDURE: Release of A1 Eugenio of left index finger trigger finger ANESTHESIA: 10 cc 1% lidocaine 1:100,000 epi SPECIMENS: none TUBES AND DRAINS: None TOURNIQUET TIME: 9 minutes Implants:none Preoperative Information and Indication: 79-year-old male with history significant for diabetes who was seen in the clinic for bilateral index finger trigger fingers. He was counseled on treatmen t options including corticosteroid injections, he declined corticosteroid injections and was anxious regarding the effect it would have on his blood sugars. He was counseled on surgical treatment with the release of the A1 eugenio. After voicing standing of the risk and benefits of operative and nonoperative treatment and he elected to undergo left index finger trigger finger release of the A1 eugenio under local anesthesia. Intraoperative Findings: Thickening of the A1 eugenio consistent with trigger finger Consent: I explainedthe procedure and postoperative protocol. I discussed the recovery period. I explained to the patient the risks and benefits of operative intervention to include but not be limited to the risk of anesthesia, bleeding, infection, damage to arteries tendons and nerves, persistent symptoms, recurrent symptoms, scar sensitivity, need for further surgery, and need for extensive postoperative therapy and immobilization, or even . We also talked about the possible need of other surgery. The patient understood these risks and wished to proceed. Operative Note Operative Details Position: supine hand table Findings: Thickening of the A1 eugenio consistent with trigger finger Description of Procedure: Patient was brought to the operating room and positioned supine. Left upper extremity was prepped and draped in routine sterile fashion. Surgical timeout was performed. left Upper arm tourniquet was placed and inflated to 250 mmhg. I then made a 1 cm diagonal incision directly over the A1 eugenio of the left index finger, dissecting down through the skin and subcutaneous tissues bluntly. Great care was taken to protect the neurovascular bundle both radially and ulnarly. The A1 eugenio was directly visualized and incised. After release of the eugenio no triggering was found and the finger was able be fully extended passively at the metacarpal phalangeal and proximal interphalangeal joints. The wound was copiously irrigated. Hemostasis was obtained. Skin was closed with 4-0 nylon horizontal mattress sutures. Dry sterile dressing was applied. The patient tolerated the procedure well and was taken to the recovery room. Postoperative Information Closure: 4-0 nylon Estimated Blood Loss: none Complications:none Post-Operative Condition: Good condition Sponge/Needle Count: Correct Postoperative plan: Dressing: dry sterile of xeroform, 4x4 gauze and dressing to remain in place Wound care: maintain dressing until follow Immobilization: active finger flexion extension Weight Bearing Status: no lifting with operative hand Follow-up 10 days Imaging at follow-up none Professional Services Attending Attestation: I was present for the mercedes portions and immediately available for the non-mercedes portions. Credentials and Title of Author Giselle Walton Credentials: . Title: Attending. GISELLE WALTON MD Aug 19, 2024 09:33 documented in this encounter Plan of Treatment Upcoming Encounters Date Type Department Care Team (Late st Contact Info) Description 09/14/2025 1:00 PM EDT Office Visit [address] [phone] María Welch PA [address] [place] [address] 09/28/2025 10:30 AM EST Office Visit Orthopedic Surgery - [place] [address] [phone] Ruslan Lyle, DPM [address] [place] [phone] 10/24/2025 10:30 AM EST Office Visit [facility] Hematology Oncology [address] [place] [phone] Kusum Bess MD [address] [place] [address] 11/30/2025 10:00 AM EST Ancillary Procedure [facility] 101 300 [facility] [place] [address] [place] [phone] 02/19/2026 9:45 AM EDT Office Visit [facility] - [place] [address] [place], [place] [phone] Andrea Ramos MD [address] [place] [address] documented as of this encounter Visit Diagnoses Not on filedocumented in this encounter Care Teams Electric Motor Repairing Supervisor Relationship Specialty Start Date End Date Andrea Ramos MD [address] [place] [address] PCP - General Internal Medicine 01/23/12 documented as of this encounter
--- NOTE | 2025-09-13 12:57 | A.OFFVIS_ITS ---
Vital Signs 09/13/25 12:59 Height 5 ft 5 in Weight 164 lb BMI 27.3 Intake Visit Reasons: INJ- RT knee Durolane injection Intake Note: Cecilio is a 80 year old male who presents today for a right knee Durolane injection. 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 Lumbar radiculopathy, chronic COVID-19 vaccine administered Arthritis Diabetes Aortic valvular disease HTN (hypertension) Surgical History Hx of left cataract extraction H/O colonoscopy Hx of shoulder surgery Hx of lumbar discectomy Hx of aortic valve replacement Social History Household Members: Spouse Alcohol intake: former Patient Tobacco Use Status: Former Tobacco user Review of Systems Const All systems reviewed & are unremarkable except as noted in HPI and below Physical Exam Vital Signs: BMI result Body Mass Index 27.3 Const General: cooperative and no acute distress Orientation/consciousness: patient oriented x3 Resp Effort & Inspection: normal respiratory effort and able to speak in complete sentences Cardio Peripheral pulses: Peripheral pulses 2+ throughout Neuro General: patient oriented x3 Extrem Other: Right knee skin intact, no erythema or joint effusion. Tenderness along the medial joint line. ROM full with crepitus. Negative steinmans. No ligamentous laxity. NVI. Office Procedures AMB Joint Injection/Aspiration Joint Injection/Aspiration Details: durolane injection Primary Site: right knee Prep: site was prepped using aseptic technique, ethochloride spray was applied and injection warnings given Injected: in the joint Approach Used: anterolateral Procedure: The patient tolerated the procedure well Coding 26110 - Glenohumeral/Tronchanteric Bursa/Intraarticular Procedure code (CPT) selection complete Assessment & Plan Assessment & Plan (1) Osteoarthritis of right knee: Code(s): M17.11 - Unilateral primary osteoarthritis, right knee Category: Medical Plan: Plan was to proceed with gel injection today. Durolane Injection performed today which the patient tolerated well. She will rest ice and use anti- inflammatories as needed for the next several days. Coding Level of Care Code Procedure Only Diagnoses Osteoarthritis of right knee M17.11 CPT Codes Coding - Joint 7: 27421 - Glenohumeral/Tronchanteric Bursa/Intraarticular ([id number])
[2025-09-13 12:59] VITALS: BMI 27.3
--- OUTSIDE RECORDS SUMMARY | 2025-09-13 15:58 | XMS_ITS | Encounter Summary ---
Author Organization [facility] Address [address] [facility] [address] [place] [address] Phone Care Team Providers Care Engineering Associate Name Role Phone Andrea Ramos MD Primary Care Provider [phone] Encounter Details Date Type Department Care Team (Late st Contact Info) Description 05/11/2024 Documentation Only [facility] [address] [place] [address] [place], [place] [address] [place] [address] Social History Tobacco Use Types [...] Visit [facility] [address] [place] [address] German Simpson MD [address] [place] [address] [place] [id number] documented as of this encounter Visit Diagnoses Not on filedocumented in this encounter Care Teams Engineering Associate Relationship Specialty Start Date End Date Andrea Ramos MD PCP - General 09/20/19 documented as of this encounter
--- OUTSIDE RECORDS SUMMARY | 2025-09-13 15:58 | XMS_ITS | Clinical Summary ---
Author Organization [facility] Address [address] [place] [address] Care Team Providers Care Foundry Superintendant Name Role Phone Andrea Ramos MD Primary Care Provider [phone] Medications Medication Sig Dispensed Refills Start Date [...] 2 (two) times a day. 0 Active mpnvpkdh-iexnmkvsr-hwx amethamethasone (POLYDEX) 3.5-56090-8.1 OINT 0 Active insulin glargine (LANTUS) injection [...] age to complete this topic Care Teams Foundry Superintendant Relationship Specialty Start Date End Date Andrea Ramos MD PCP - General Internal Medicine 01/07/22
--- OUTSIDE RECORDS SUMMARY | 2025-09-13 15:58 | XMS_ITS | Encounter Summary ---
Author Organization [facility] Address [address] [facility] [address] [place] [address] Phone Care Team Providers Care Blade Changer Name Role Phone Andrea Ramos MD Primary Care Provider [phone] Encounter Details Date Type Department Care Team (Late st Contact Info) Description 02/17/2025 Documentation Only [facility] [address] [place] [address] [place], [place] [address] [place] [address] Social History Tobacco Use Types [...] Visit [facility] [address] [place] [place] [address] German Simpson MD [address] [place] [address] [place] [address] documented as of this encounter Visit Diagnoses Not on filedocumented in this encounter Care Teams Blade Changer Relationship Specialty Start Date End Date Andrea Ramos MD PCP - General 09/20/19 documented as of this encounter
--- OUTSIDE RECORDS SUMMARY | 2025-09-13 15:58 | XMS_ITS | Clinical Summary ---
Author Organization [facility] Address [address] [place] [address] Phone Care Team Providers Care Boiler Repairman Name Role Phone Andrea Ramos MD Primary Care Provider Allergies No known active allergies Medications insulin lispro 100 unit/mL injection Inject 3 times a day with meals per sliding scale: 100-149: 8 units; 150-200: 10 units; 201-250: 11 units; 251-300: 12 units; 301-350:13 units; 351-400: 15 units, DINNER - 2 UNITS 45 mL 5 025 Active doxazosin (CARDURA) 4 mg tablet Take 1 tablet (4 mg total) by mouth at bedtime. 90 tablet 2 025 Active NIFEdipine XL (PROCARDIA XL) 90 mg 24 hr tablet Take 1 tablet (90 mg total) by mouth 1 (one) time each day. 90 tablet 2 025 Active FreeStyle Lancets 28 gauge lancets USE TO CHECK BLOOD SUGAR TWO TIMES A DAY (BULK) 200 each 1 025 Active multivit-credit union examiner als/folic acid (CENTRUM ADULT 50 PLUS ORAL) Take 1 tablet by mouth 1 (one) time each day. Active glucose 4 gram chewable tablet Chew 4 tablets (16 g total) if needed for low blood sugar. 50 tablet 12 025 2025 Active glucagon (Gvoke HypoPen 1-Pack) 1 mg/0.2 mL auto-injector Inject 1 mg under the skin if needed (Low blood sugar). Inject 1 Dose into the skin as needed for Other (low blood sugar). - Subcutaneous 0.2 mL 11 Active rosuvastatin (CRESTOR) 10 mg tablet TAKE ONE TABLET BY MOUTH EVERY DAY ^1R3 90 tablet 3 Active metoprolol succinate (TOPROL-XL) 100 mg 24 hr tablet TAKE ONE TABLET BY MOUTH EVERY DAY ^1R3 90 tablet 3 Active blood sugar diagnostic (FreeStyle Lite Strips) test stripIndicatio ns:Type 2 diabetes mellitus with diabetic microalbuminur ia, with long-term current use of insulin ([facility] V24, [facility] V28) USE TO TEST BLOOD SUGAR THREE TIMES A DAY 200 strip Active insulin glargine (LANTUS) 100 unit/mL injection 26 units sc at bedtime 10 mL Active BD SafetyGlide Insulin Syringe 1 mL 29 gauge x 1/2 syringe USE ONCE DAILY TO INJECT LANTUS INSULIN (BULK) 300 each Active apixaban (Eliquis) 5 mg tablet Take 1 tablet (5 mg total) by mouth 2 (two) times a day. 180 tablet 1 2025 Active dapagliflozin propanediol (Farxiga) 10 mg tablet Take 1 tablet (10 mg total) by mouth 1 (one) time each day. 90 each 2024 Active valsartan (DIOVAN) 160 mg tablet Take 1 tablet (160 mg total) by mouth 1 (one) time each day. 90 tablet Active B complex tablet Take 1 tablet by mouth 1 (one) time each day. 90 tablet 1 2024 Active hydrALAZINE (APRESOLINE) 100 mg tablet TAKE ONE AND ONE-HALF TABLETS BY MOUTH TWICE A DAY ^1HR1,1HR3 135 tablet 1 Active tamsulosin (FLOMAX) 0.4 mg 24 hr capsule TAKE ONE CAPSULE BY MOUTH EVERY DAY 30 MINUTES AFTER THE SAME MEAL EACH DAY ^1R3 90 capsule 1 Active hydrALAZINE (APRESOLINE) 100 mg tablet TAKE ONE AND ONE-HALF TABLETS BY MOUTH TWICE A DAY ^1HR1,1HR3 90 tablet 5 025 2024 Discontinued Eliquis 5 mg tablet TAKE ONE TABLET BY MOUTH TWICE A DAY ^1R1,1R3 60 tablet 5 025 2024 Discontinued(R eorder) Farxiga 10 mg tablet TAKE ONE TABLET BY MOUTH EVERY DAY ^1R1 30 tablet 5 025 2024 Discontinued(R eorder) tamsulosin (FLOMAX) 0.4 mg 24 hr capsule TAKE ONE CAPSULE BY MOUTH EVERY DAY 30 MINUTES AFTER THE SAME MEAL EACH DAY ^1R3 30 capsule 1 025 2024 Discontinued B complex tablet TAKE ONE TABLET BY MOUTH EVERY DAY ^1R1 30 tablet 025 2024 Discontinued(R eorder) valsartan (DIOVAN) 160 mg tablet TAKE 1 TABLET BY MOUTH 1 TIME EACH DAY. 90 tablet 025 2024 Discontinued(R eorder) methylPREDNISo lone (MEDROL DOSPAK) 4 mg tablet Take 1 tablet (4 mg total) by mouth See administration instructions for 6 days. Use as directed by package instructions 21 tablet 025 2024 Additional Information Patient not taking.Reported on 08/30/2025 Active Problems Problem Noted Date Diagnosed Date HLD (hyperlipidemia) 11/06/2024 Assessment & Plan (08/30/2025 9:44 AM EDT): Utilizing rosuvastatin 10 mg p.o. daily. Most recent LDL value was 22. Chronic renal impairment 07/25/2024 Diabetes mellitus ([facility]/HCC V24, [facility]/HCC V28) Overview (11/06/2024): TEE ROBERTS Monoclonal gammopathy [...] taking it. An EMG was performed at [facility] and a lumbar spine MRI performed and [...] failure (CMS/HCC V24, CMS/HCC V28) 03/07/2022 Overview (08/30/2025): -In spite of this, symptomatically he probably only has NYHA class II symptoms -See most recent echocardiogram under valve replacement section Assessment & Plan (08/30/2025 9:43 AM EDT): Euvolemic on exam. Not utilizing a diuretic at this time. He is on a strict diet he watches both his sugar secondary to diabetes and his sodium for the diastolic heart failure. He is on SGLT2 inhibitor. Asked him to check his weights daily, reach out if he gains more than 2 pounds in a day or 4 pounds in a week. I would also like him to reach out if he notices any significant lower extremity edema. Assessment & Plan (02/16/2025 1:40 PM EDT): Patient is euvolemic on exam today. Continue current Farxiga 10 mg daily, valsartan. Patient does not require loop diuretic as he is well-controlled from a volume standpoint. TIA (transient ischemic attack) 03/07/2022 Benign prostatic hyperplasia 11/29/2021 Nephrolithiasis 11/29/2021 Overview (11/06/2024): Follows with [facility]rology on annual basis. Renal cyst 11/29/2021 Type 2 diabetes mellitus ([facility] V24, [facility] V 28) 02/22/2020 Microalbuminuria 02/22/2020 Atrial flutter ([facility] V24, [facility] V28) 2015 Overview (11/06/2024): - Chronic, likely [...] Lopressor 100 twice daily). Assessment & Plan (08/30/2025 9:42 AM EDT): Patient is utilizing metoprolol succinate 100 mg p.o. daily for rate control. He is utilizing Eliquis 5 mg p.o. twice daily for CVA prophylaxis. Denies any abnormal bleeding. Should remain anticoagulated due to elevated CHADS2 Vascor. He does have PVCs on his EKG today. He is declining wearing a Holter monitor at the appointment, he is denying palpitations. I am going to be updating an echocardiogram to assess LVEF in addition to his aortic valve replacement. Assessment & Plan (02/16/2025 1:40 PM EDT): [...] other findings were stable Assessment & Plan (08/30/2025 9:47 AM EDT): Sounds good on exam. I am going to update an echocardiogram to be done in 3 months. Patient is aware of antibiotic prophylaxis for dental procedures. He is on Eliquis. Assessment & Plan (02/16/2025 1:40 PM EDT): [...] (diabetes mellitus), type 2 with renal complications ([facility] V24, [facility] V28) 12/28/2013 Overview (11/06/2024): Microalbumin 263 on 11/21/13. OA (osteoarthritis) of knee 10/21/2012 Essential hypertension 02/18/2012 Overview (11/06/2024): Last Assessment & Plan: Seems to be suboptimally controlled at home but controlled in the office. Resuming Toprol XL as above. Assessment & Plan (08/30/2025 9:44 AM EDT): He reports it is been better controlled since he was started back on the metoprolol. He does not check his blood pressures as frequently as he used to, however he does still check blood pressures at home occasionally. Would like him to continue on his current regimen which includes nifedipine 90 mg p.o. daily, metoprolol 100 mg p.o. daily, hydralazine 100 mg p.o. daily, valsartan 160 mg p.o. daily if needed in the future would switch his metoprolol to a carvedilol for better blood pressure control Assessment & Plan (02/16/2025 1:40 PM EDT): Suboptimally controlled initially, but better controlled on prior visits and on recheck. Suspected white coat phenomenon. - No changes to current regimen Resolved Problems Problem Noted Date Diagnosed Date Resolved Date Heart murmur 11/06/2024 02/16/2025 Mitral regurgitation 11/06/2024 04 025 Coronary arteriosclerosis 02/12/2024 Overview (11/06/2024): ELIQUIS Encounters Date Type Department Care Team Description 08/30/2025 9:10 AM EDT Office Visit [facility] - [facility] [address] [facility] [address] [place] [address] Dipak Corbett NP Atrial flutter, unspecified type (CMS/HCC V24, CMS/HCC V28) (Primary Dx); Chronic diastolic congestive heart failure (CMS/HCC V24, CMS/HCC V28); Essential hypertension; Pure hypercholesterolemia; S/P AVR (aortic valve replacement) 08/24/2025 9:00 AM EDT Office Visit Orthopedic Surgery - [place] [address] [facility] [address] [place] [phone] Ruslan Lyle DPM Foot pain (Primary Dx); Gout of right foot, unspecified cause, unspecified chronicity; Acquired hammer toe of right foot; Diabetic mononeuropathy simplex (CMS/HCC V24, CMS/HCC V28); Type II diabetes mellitus with peripheral circulatory disorder (CMS/HCC V24, CMS/HCC V28) 08/22/2025 Results Follow-Up [address] [phone] Andrea Ramos MD 08/15/2025 11:30 AM EDT Office Visit Adult [address] [phone] Andrea Ramos MD Type 2 diabetes mellitus with diabetic microalbuminuria, with long-term current use of insulin (CMS/[facility] V24, CMS/[facility] V28) (Primary Dx); Pure hypercholesterolemia; Encounter for long-term (current) use of medications; Atrial flutter, unspecified type (CMS/HCC V24, CMS/HCC V28); Chronic diastolic congestive heart failure (CMS/HCC V24, CMS/HCC V28); Essential hypertension; Monoclonal gammopathy 06/13/2025 1:15 PM EDT Office Visit [address] [phone] María Welch PA Type 2 diabetes mellitus with diabetic microalbuminuria, with long-term current use of insulin ([facility] V24, CMS/[facility] V28) (Primary Dx) from Last 3 Months Surgical History Surgery Date Site/Laterality Comments LUMBAR LAMINECTOMY 2006 PROCEDURE: HISTORICAL LUMB LAMINECTOMY; COMMENT: Dr. Grimes, L4-5, L5-S1 decompression HAND SURGERY PROCEDURE: HISTORICAL HAND SURGERY; COMMENT: left 3trd trigger COLONOSCOPY 03/02/2014 PROCEDURE: HISTORICAL COLONOSCOPY; COMMENT: normal; would not repeat CATARACT EXTRACTION 2020 Bilateral PROCEDURE: HISTORICAL CATARACT REMOVAL OTHER SURGICAL HISTORY 2015 PROCEDURE: [place] RPLCMT AORTIC VALVE ANNULUS ENLGMENT NONC SINUS KNEE SURGERY 2016 Right PROCEDURE: HISTORICAL KNEE SURGERY SHOULDER SURGERY 1990 Right PROCEDURE: HISTORICAL SHOULDER SURGERY MECHANICAL AORTIC VALVE REPLACMENT AND MITRAL VALVE REPAIR N/A TRIGGER FINGER RELEASE 08/19/2024 Left TRIGGER FINGER RELEASE 09/30/2024 Right Medical History Medical History Date Comments HTN (hypertension) 02/18/2012 DX:HTN (hyper tension) DM type 2 (diabetes mellitus , type 2) ([facility] V24, [facility] V28) 02/18/2012 DX:DM type 2 (diabetes dez itus, type 2) ([facility]) Historical Medical DX 02/18/2012 DX:Hyperli pidemia LDL goal < 70 OA (osteoarthritis) of knee 10/21/2012 DX:O A (osteoarthritis) of knee; COMMENT: right knee Atrial fibrillation, chronic ([facility] V24, [facility] V28) DX:Atrial fibrillation, palliative care nurse maureen ([facility]); COMMENT: dx 2016? Hyperlipidemia Heart valve disease [...] Sign Reading Time Taken Comments Blood Pressure 148/80 08/30/2025 8:51 AM EDT Pulse 68 08/30/2025 8:51 AM EDT Temperature 36.4 C (97.5 F) 08/15/2025 11:07 AM EDT Respiratory Rate 16 08/15/2025 11:07 AM EDT Oxygen Saturation 99% 08/30/2025 8:51 AM EDT Inhaled Oxygen Concentration - - Weight 73.6 kg (162 lb 3.2 oz) 08/30/2025 8:51 A M EDT Height 165.1 cm (5' 5 ) 08/30/2025 8:51 AM EDT Body Mass Index 26.99 08/30/2025 8:51 AM EDT Plan of Treatment Upcoming Encounters Date Type Department Care Team (Late st Contact Info) Description 09/14/2025 1:00 PM EDT Office Visit Endocrinology [address] [phone] María Welch PA [address] [place] [address] 09/28/2025 10:30 AM EST Office Visit Orthopedic Surgery - [place] [address] [facility] [address] [place] [phone] Ruslan Lyle, DPM [address] [place] [phone] 10/24/2025 10:30 AM EST Office Visit [facility] Hematology Oncology [address] [place] [phone] Kusum Bess MD [address] [place] [address] 11/30/2025 10:00 AM EST Ancillary Procedure [facility] - [facility] [address] 300 [facility] [address] [place] [phone] 02/19/2026 9:45 AM EDT Office Visit Adult Medicine [facility] [address] [place] [address] Andrea Ramos MD [address] [place] [phone] Health Maintenance Due Date Last Done Comments [...] exists Influenza Vaccine (#1) 2025 09/24/2007 Diabetes: Blood Sugar Control Test (HGBA1C) 12/14/2025 06/13/2025, 03/10/2025, 12/02/2024, Additional history exists Diabetes: Annual Urine Albumin-Creatinine Ratio (uACR) 08/15/2026 08/15/2025, 12/02/2024 Diabetes: Annual GFR (Glomerular Filtration Rate) 08/15/2026 08/15/2025, 03/10/2025, 02/15/2025, Additional history exists Hypertension/CHF/CAD Annual BMP Blood Test 08/15/2026 08/15/2025, 03/10/2025, 02/15/2025, Additional history exists Cholesterol Screening (Lipid Panel) 08/15/2030 08/15/2025, 12/02/2024 DTaP,Tdap,and Td Vaccines (3 - Td [...] Procedure Name Priority Date/Time Associated Diagnosis Comments ECG 12-LEAD Routine 08/30/2025 9:15 AM EDT Atrial flutter, unspecified type (CMS/HCC V24, CMS/HCC V28) XR FOOT 3+ VIEWS RIGHT Routine 08/24/2025 9:14 AM EDT Foot pain LIPID PANEL WITH REFLEX TO DIRECT LDL Routine 08/15/2025 12:14 PM EDT Pure hypercholesterolemia COMPREHENSIVE METABOLIC PANEL Routine 08/15/2025 12:14 PM EDT Type 2 diabetes mellitus with diabetic microalbuminuria, with long-term current use of insulin ([facility] V24, [facility] V28) Encounter for long-term (current) use of medications MICROALBUMIN CREATININE URINE RATIO Routine 08/15/2025 12:14 PM EDT Type 2 diabetes mellitus with diabetic microalbuminuria, with long-term current use of insulin ([facility] V24, [facility] V28) HEMOGLOBIN A1C Routine 06/13/2025 1:59 PM EDT Type 2 diabetes mellitus with diabetic microalbuminuria, with long-term current use of insulin ([facility] V24, [facility] V28) POC GLUCOSE Routine 06/13/2025 1:16 PM EDT Type 2 diabetes mellitus with diabetic microalbuminuria, with long-term current use of insulin ([facility] V24, [facility] V28) from Last 3 Months Results * ECG 12 lead (08/30/2025 9:15 AM EDT) 08/30/2025 8:55 AM EDT us Dipak Corbett NP ECG ORDERABLES Final Result GEMUSE * XR Foot 3+ Views Right (08/24/2025 9:14 AM EDT) Anatomical Region Laterality Modality Lower Extremities, Foot Right Computed Radiography Narrative 08/24/2025 1:03 PM EDT Right foot 3 views No obvious fracture or dislocation noted Destructivedegenerative changes of the interphalangeal joints of the lesser digits right foot consistent with arthritis or arthropathy us Ruslan Lyle DPM IMG XR PROCEDURES Final R esult * Lipid panel with reflex to direct LDL (08/15/2025 12:14 PM EDT) Cholesterol 119 0 - 200 mg/dL LAB CHEMISTRY METHOD 08/15/2025 5:35 PM EDT [facility] Triglycerides 94 0 - 150 mg/dL LAB CHEMISTRY METHOD 08/15/2025 5:35 PM EDT [facility] HDL 78 >=40 mg/dL LAB CHEMISTRY METHOD 08/15/2025 5:35 PM EDT [facility] LDL Calculated 22 0 - 100 mg/dL LAB CHEMISTRY METHOD 08/15/2025 5:35 PM EDT [facility] Comment:Estimated LDL Calcul ated using equation: Total cholesterol - HDL cholesterol - (Triglycerides/5) VLDL Cholesterol Hipolito 18.8 mg/dL LAB CHEMISTRY METHOD 08/15/2025 5:35 PM EDT [facility] Non HDL Chol. (LDL+VLDL) 41 <145 mg/dL LAB CHEMISTRY METHOD 08/15/2025 5:35 PM EDT [facility] Chol/HDL Ratio 1.5 0.0 - 4.4 LAB CHEMISTRY METHOD 08/15/2025 5:35 PM T [facility] Blood Venous blood specimen / Unknown Venipuncture / Unknown 08/15/2025 12:14 PM EDT 08/15/2025 12:14 PM EDT us Andrea Ramos MD LAB BLOOD ORDERABLES Final Resu lt [facility] [address] [place] [address], * (ABNORMAL) Microalbumin creatinine urine ratio (08/15/2025 12:14 PM EDT) Creatinine, Urine 66.0 mg/dL LAB CHEMISTRY METHOD 08/15/2025 5:06 PM EDT [facility] Microalb, Ur 1,270.0(H ) 0.0 - 29.0 mg/L LAB CHEMISTRY METHOD 08/15/2025 5:06 PM T [facility] Comment:Results verified by repeat testing Microalb/Crea t Ratio 1,924(H) <30 mg/g creat LAB CHEMISTRY METHOD 08/15/2025 5:06 PM [facility] Urine Urine specimen obtained by clean catch procedure / Unknown Non-blood Collection / Unknown 08/15/2025 12:14 PM EDT 08/15/2025 12:14 PM EDT us Andrea Ramos MD LAB URINE ORDERABLES Final Resu lt [facility] [address] [place] [address], [place] [phone] * (ABNORMAL) Comprehensive metabolic panel (08/15/2025 12:14 PM EDT) Sodium 135 133 - 145 mmol/L LAB CHEMISTRY METHOD 08/15/2025 5:35 PM [facility] Potassium 3.7 3.5 - 5.5 mmol/L LAB CHEMISTRY METHOD 08/15/2025 5:35 PM [facility] Chloride 103 96 - 110 mmol/L LAB CHEMISTRY METHOD 08/15/2025 5:35 PM [facility] CO2 25 21 - 32 mmol/L LAB CHEMISTRY METHOD 08/15/2025 5:35 PM [facility] Anion Gap 7 3 - 11 LAB CHEMISTRY METHOD 08/15/2025 5:35 PM [facility] Glucose 217(H) 70 - 100 mg/dL LAB CHEMISTRY METHOD 08/15/2025 5:35 PM [facility] BUN 23 5 - 25 mg/dL LAB CHEMISTRY METHOD 08/15/2025 5:35 PM [facility] Creatinine 1.38(H) 0.70 - 1.30 mg/dL LAB CHEMISTRY METHOD 08/15/2025 5:35 PM [facility] eGFR 52(L) >=60 mL/min/1. 73m2 LAB CHEMISTRY METHOD 08/15/2025 5:35 PM [facility] Comment:Calculation based on the Chronic Kidney Disease Epidemiology Collaboration (CKD-EPI) equation refit without adjustment for race. BUN/Creatinine Ratio 16.7 LAB CHEMISTRY METHOD 08/15/2025 5:35 PM [facility] Calcium 9.3 8.5 - 10.5 mg/dL LAB CHEMISTRY METHOD 08/15/2025 5:35 PM [facility] AST (SGOT) 19 10 - 42 unit/L LAB CHEMISTRY METHOD 08/15/2025 5:35 PM [facility] ALT (SGPT) 25 10 - 60 unit/L LAB CHEMISTRY METHOD 08/15/2025 5:35 PM [facility] Alkaline Phosphatase 75 42 - 121 unit/L LAB CHEMISTRY METHOD 08/15/2025 5:35 PM [facility] Total Protein 8.2(H) 6.0 - 8.0 g/dL LAB CHEMISTRY METHOD 08/15/2025 5:35 PM [facility] Albumin 3.6 3.2 - 5.0 g/dL LAB CHEMISTRY METHOD 08/15/2025 5:35 PM [facility] Total Bilirubin 0.6 0.0 - 1.4 mg/dL LAB CHEMISTRY METHOD 08/15/2025 5:35 PM [facility] Blood Venous blood specimen / Unknown Venipuncture / Unknown 08/15/2025 12:14 PM EDT 08/15/2025 12:14 PM EDT us Andrea Ramos MD LAB BLOOD ORDERABLES Final Resu lt [facility] [address] [place] [address], [place] [phone] * (ABNORMAL) Hemoglobin A1c (06/13/2025 1:59 PM EDT) Hemoglobin A1C 7.0(H) <6.5 % LAB CHEMISTRY METHOD 06/13/2025 9:26 PM EDT [facility] Mean Bld Glu Estim. 154 mg/dL LAB CHEMISTRY METHOD 06/13/2025 9:26 PM EDT [facility] Blood Venous blood specimen / Unknown Venipuncture / Unknown 06/13/2025 1:59 PM EDT 06/13/2025 1:59 PM EDT María PERRY LAB BLOOD ORDERABLES Final Result [facility] [address] [place] [address], [place] [phone] * POC glucose manually resulted (06/13/2025 1:16 PM EDT) Glucose POC 383 mg/dL Blood Capillary blood specimen / Unknown 06/13/2025 1:16 PM EDT María PERRY POINT OF CARE TEST ENTER/ED IT ORDERABLES Final Result from Last 3 Months Insurance [facility] [employer]IC[employer] Member Subscriber Plan / Payer (Ef fective 2016-Present) Name:Cecilio Lane Relation to Subscriber:Self Name:Cecilio Lane Payer ID:[id number] Group ID:[id number] Type:Not on file Address: [place] [address] [address] [id number] Care Teams Boiler Repairman Relationship Specialty Start Date End Date Andrea Ramos MD [address] [place] [phone] PCP - General Internal Medicine 01/23/12
--- OUTSIDE RECORDS SUMMARY | 2025-09-13 15:58 | XMS_ITS | Encounter Summary ---
Author Organization [facility] Address [address] [place] [address] Care Team Providers Care Jet Handler Name Role Phone Andrea Ramos MD Primary Care Provider [phone] Encounter Details Date Type Department Care Team (Late Contact Info) Description 08/22/2025 Results Follow-Up Adult Medicine [address] [phone] Andrea Ramos MD [address] [place] [address] Social History Tobacco Use Types Packs/Day Years [...] 09/14/2025 1:00 PM EDT Office Visit Endocrinology [address] [phone] María Welch PA [address] [place] [address] 09/28/2025 10:30 AM EST Office Visit Orthopedic Surgery [facility] [address] [facility] 250 [place] [phone] Ruslan Lyle DPM [address] [place] [phone] 10/24/2025 10:30 AM EST Office Visit [facility] Hematology Oncology [address] [place] [phone] Kusum Bess MD [address] [place] [address] 11/30/2025 10:00 AM EST Ancillary Procedure [facility] [address] [facility] 101 [place] [phone] 02/19/2026 9:45 AM EDT Office Visit Adult Medicine [facility] [address] [place] [address] Andrea Ramos MD [address] [place] [address] documented as of this encounter Visit Diagnoses Not on filedocumented in this encounter Care Teams Jet Handler Relationship Specialty Start Date End Date Andrea Ramos MD [address] [place] [address] PCP - General Internal Medicine 01/23/12 documented as of this encounter
--- OUTSIDE RECORDS SUMMARY | 2025-09-13 15:58 | XMS_ITS | Encounter Summary ---
Author Organization [facility] Address [address] [place] [address] Care Team Providers Care Skirt Panel Assembler Name Role Phone Andrea Ramos MD Primary Care Provider [phone] Encounter Details Date Type Department Care Team (Late Contact Info) Description 04/06/[address] [facility] - Main Lab [address] [facility] [place] [phone] Sourav Mclain MD [address] [place] [phone] Malignant neoplasm of prostate (CMS/HCC V24, CMS/HCC [...] 1:00 PM EDT Office Visit Endocrinology - [address] [phone] María Welch PA [address] [place] [address] 09/28/2025 10:30 AM EST Office Visit Orthopedic Surgery - [place] [address] [facility] [address] [place] [phone] Ruslan Lyle DPM [address] [place] [phone] 10/24/2025 10:30 AM EST Office Visit [facility] Hematology Oncology [address] [place] [phone] Kusum Bess MD [address] [place] [address] 11/30/2025 10:00 AM EST Ancillary Procedure [facility] [address] [facility] [address] [place] [phone] 02/19/2026 9:45 AM EDT Office Visit Adult Medicine [facility] [address] [place], [place] [phone] Andrea Ramos MD [address] [place] [phone] documented as of this encounter Procedures Procedure Name Priority Date/Time Associated Diagnosis Comments AP OUTSIDE CONSULT Routine 04/04/2025 Malignant neoplasm of prostate ([facility] V24, [facility] V28) documented in this encounter Results * Anatomic pathology outside consult (04/04/2025) Final Diagnosis A. Prostate, Left Mid Clark Biopsy: - Benign prostatic tissue. B. Prostate, Left Lat Clark Biopsy: - Benign prostatic tissue. C. Prostate, [...] 3 tissue cores. H. Prostate, Right Mid Clark Biopsy: - Benign prostatic tissue. I. Prostate, Right Lat Clark Biopsy: - Benign prostatic tissue. J. Prostate, Left Mid Mid Biopsy: - Benign prostatic tissue. K. Prostate, Left Lat Mid Biopsy: - Benign prostatic tissue. L. Prostate, Left Mid Base Biopsy: - Benign prostatic tissue. M. Prostate, Left Lat Base Biopsy: - Benign prostatic tissue. 04/13/2025 1:[address] [facility] Clinical Information Prostate Cancer C61 Last PSA total = 16.1 (02/23/2025) [id number] 04/13/2025 1:11 PM [facility] Gross Description A. Prostate, Left Mid Clark Biopsy: Received, properly labeled, are two H and E stained slides and two unstained slides. B. Prostate, Left Lat Clark Biopsy: Received, properly labeled, are two H [...] two unstained slides. H. Prostate, Right Mid Clark Biopsy: Received, properly labeled, are two H and E stained slides and two unstained slides. I. Prostate, Right Lat Clark Biopsy: Received, properly labeled, are two H [...] unstained slides. /al 04/13/2025 1:[address] [facility] Disclaimer Unless otherwise specified, all tissue is 10% NB formalin fixed and paraffin embedded. Technical pathology services provided by [facility] at [address] [place] [address] [address], [place] [address] (CLIA #[id number]/Nancy Corley MD, Tower Attendant) 04/13/2025 1:[address] [facility] Tissue Prostate / Unknown 04/04/20252024 [...] Mclain MD LAB PATHOLOGY ORDERABLES Final Result [facility] [address] [place] [address], documented in this encounter Visit Diagnoses Diagnosis Malignant neoplasm of prostate (CMS/HCC V24, CMS/HCC V28) Malignant neoplasm of prostate documented in this encounter Care Teams Skirt Panel Assembler Relationship Specialty Start Date End Date Andrea Ramos MD [address] [place] [phone] PCP - General Internal Medicine 01/23/12 documented as of this encounter
--- OUTSIDE RECORDS SUMMARY | 2025-09-13 15:58 | XMS_ITS | Clinical Summary ---
Author Organization [facility], Address [address] [place] [address] [place] [address] Phone Care Team Providers Care Ground Support Agent Name Role Phone Andrea Ramos MD Primary Care Provider [phone] Allergies No known active allergies Medications apixaban [...] B-Complex, Folic Acid, tablet TOME GEOVANY TABLETA S LOS D 3 Active Farxiga 10 MG tablet 3 Active Diclofenac Sodium 1 % gel APPLY 1 G TOPICALLY 3 TIMES DAILY NEEDED (PAIN). 3 Active Lancets (freestyle) lancets 3 Active Active Problems Problem Noted Date Diagnosed Date Monoclonal gammopathy 10/04/2023 Nephrolithiasis 11/29/2021 10/06/2023 Overview (10/06/2023): Follows with [facility] on annual basis. Essential hypertension 02/22/2020 Microalbuminuria 02/22/2020 Type 2 diabetes mellitus 02/22/2020 Social History Tobacco Use Types Packs/Day Years [...] Visit [facility], [address] [place] [phone] German Simpson MD [address] [place] [phone] Health Maintenance Due Date Last Done Comments Diabetes: Ophthalmology Exam 02/06/2020 Diabetes: Pedal Pulse Checked 02/06/2020 Diabetes: Sensory Foot Exam 02/06/2020 Diabetes: Visual Foot Exam 02/06/2020 Diabetes: Hemoglobin A1C 06/09/2025 025, 03/10/2025, 12/02/2024, Additional history exists Influenza Vaccine (#1) 2025 Pneumococcal Vaccine: 50+ Years Completed 11/29/2021, 08/06/2012 Pneumococcal Vaccine: Peds (0 to 5 Years) and At-Risk Patients (6 to 49 Years) Discontinued 11/29/2021, 08/06/2012 Hepatitis B Vaccine Aged Out No longe r eligible based on patient's age to complete this topic Insurance [facility] Care Dual SNP ([id number]) [place] [id number] Care Teams Ground Support Agent Relationship Specialty Start Date End Date Andrea Ramos MD PCP - General 09/20/19
== END 2025-09-13 13:59 | disposition home or self-care (01) ==
LOC: HO.HOS 12:38
PROVIDERS: Visit Provider Physician Assistant
DX: M17.11 Unilateral primary osteoarthritis, right knee (principal)
CPT/HCPCS: 20610

== ENCOUNTER → 2025-09-13 12:37 | Outpatient (BNVA) | payer OTHER, SELFPAY | PROVIDERS: Visit Provider Physician Assistant | DX: M17.11 Unilateral primary osteoarthritis, right knee (principal) | CPT/HCPCS: 20610; J7318 ==